=== PATIENT | female | born 1950 | race Caucasian/White ===

== ENCOUNTER 2020-01-23 08:26 | Day surgery (SDC) | payer MEDICARE, SELFPAY ==
--- NOTE | 2020-01-22 10:08 | P.CONAN_ITS ---
Documented by User: Nikki Lares 01/22/20 10:15 HPI - Anesthesia Eval Consult details Narrative: 69yo F for Colonoscopy PMFSH Past Medical History Medical History Cataract Hepatitis Herniated disc History of multiple strokes HTN (hypertension) Hyperlipemia Normal colonoscopy Surgical History Surgical History History of bunionectomy Social History Social History Smoking Status: Never smoker Use of substances other than those prescribed or required for medical reasons: No Advance Directives: No Advance Directives Information Provided: No Advance Directives on File: No Meds Allergies Allergy/AdvReac Type Severity Reaction Status Date / Time aspirin [ASA] AdvReac Intermediate GI UPSET Unverified 11/08/19 14:36 nabumetone [NABUMETONE] AdvReac Intermediate GI UPSET Unverified 11/08/19 14:36 ENVIROMENTAL Allergy Intermediate HAYFEVER Uncoded 11/08/19 14:36 Home Medications Medication Instructions Recorded Confirmed Type Lashawn 1 tab PO DAILY 01/15/20 01/15/20 History Aspir-81 1 tab PO DAILY 01/15/20 01/15/20 History Calcium 600 with Vitamin D3 1 tab PO DAILY 01/15/20 01/15/20 History Tylenol PRN 01/15/20 01/15/20 History amlodipine 7.5 mg PO DAILY 01/15/20 01/15/20 History cyclobenzaprine 1 tab PO BEDTIME PRN 01/15/20 01/15/20 History lorazepam 1 tab PO PRN 01/15/20 History multivitamin 1 tab PO DAILY 01/15/20 01/15/20 History valacyclovir PO PRN 01/15/20 History Exam Exam Date and Time: January 22, 2020 1008 Narrative Narrative: ECHO 2019 WNL MRA Head 2019: 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 reconstituting at the level of the V2 segment where the vessel proximally exhibits mod to severe irreg narrowing, <50% stenosis of the proximal right internal carotid artery Assessment and Plan Assessment Anesthesia Assessment: Chart Reviewed Documented by User: Daniel Ware 01/23/20 09:13 [facility] Past Medical History Medical History Cataract Hepatitis Herniated disc History of multiple strokes HTN (hypertension) Hyperlipemia Normal colonoscopy Surgical History Surgical History History of bunionectomy Social History Social History Smoking Status: Never smoker Use of substances other than those prescribed or required for medical reasons: No Advance Directives: No Advance Directives Information Provided: No Advance Directives on File: No Meds Allergies Allergy/AdvReac Type Severity Reaction Status Date / Time aspirin [ASA] AdvReac Intermediate GI UPSET Unverified 11/08/19 14:36 nabumetone [NABUMETONE] AdvReac Intermediate GI UPSET Unverified 11/08/19 14:36 ENVIROMENTAL Allergy Intermediate HAYFEVER Uncoded 11/08/19 14:36 Home Medications Medication Instructions Recorded Confirmed Type Lashawn 1 tab PO DAILY 01/15/20 01/15/20 History Aspir-81 1 tab PO DAILY 01/15/20 01/15/20 History Calcium 600 with Vitamin D3 1 tab PO DAILY 01/15/20 01/15/20 History Tylenol PRN 01/15/20 01/15/20 History amlodipine 7.5 mg PO DAILY 01/15/20 01/15/20 History cyclobenzaprine 1 tab PO BEDTIME PRN 01/15/20 01/15/20 History lorazepam 1 tab PO PRN 01/15/20 History multivitamin 1 tab PO DAILY 01/15/20 01/15/20 History valacyclovir PO PRN 01/15/20 History Exam Airway Mallampati Class: II TM Dist: >3cm Neck ROM: Full Loose/Missing/Broken Teeth: No Heart: [id number] Lungs: cta b/l Assessment and Plan Assessment Anesthesia Assessment: Anesthesia Plan Discussed, PAT Visit and Chart Reviewed Final Anesthetic Review NPO: Yes ASA Class: II Final Preanesthetic Review: No Changes in Pt Med Stat, Meds/Allgs Chart Reviewed, Consent Obtained/Reviewed and Anes Risks/Benef Reviewed Patient Risk: Intermediate Procedure Risk: Low Assessment/Block/Sedation in SS: Assess/Block/Sedation-SS Anesthetic Plan Anesthetic Plan: MAC: Disposition: Standard PACU
[2020-01-22 10:13] VITALS: BMI 22.6
[2020-01-23 08:54] VITALS: BP 141/75; PULSE 73; RESP 18; TEMP 36.6; O2SAT 98
[2020-01-23] MEDS: Lactated Ringers 1,000 ML 100 ML IVCONT (08:56)
[2020-01-23 10:27] VITALS: BP 105/62; PULSE 81; RESP 12; TEMP 36.1; O2SAT 100
--- NOTE | 2020-01-23 10:30 | PM.OP ---
Brief Operative Note Date of Service: 01/23/20 Pre-op diagnosis: Screening Post-op diagnosis: other (Diverticulosis, Internal hemorrhoids) Procedure: Colonoscopy to cecum and TI Surgeon: Galileo Mulligan Anesthesia: MAC Estimated blood loss (mL): 0 Pathology: none sent Condition: stable Disposition: PACU
[2020-01-23 10:42] VITALS: BP 122/65; PULSE 71; RESP 13; TEMP 36.1; O2SAT 99
--- NOTE | 2020-01-23 11:15 | OP_ITS ---
SURGEON: Galileo Mulligan MD INDICATIONS: The patient presents for evaluation of colorectal cancer screening. Full consent has been obtained from her for this, including risks of bleeding and perforation. PREOPERATIVE DIAGNOSIS: Colorectal cancer screening. POSTOPERATIVE DIAGNOSIS: PROCEDURE PERFORMED: Colonoscopy to cecum and terminal ileum. ESTIMATED BLOOD LOSS: COMPLICATIONS: ANESTHESIA: Monitored anesthesia care. ASSISTANTS: SPECIMENS: POSTOPERATIVE DIAGNOSES: Colorectal cancer screening, sigmoid diverticulosis, and internal hemorrhoids. DESCRIPTION OF PROCEDURE: The patient was placed in the left lateral decubitus position. The digital rectal exam revealed no abnormalities. The Olympus video pediatric colonoscope was entered into the rectum and advanced easily to the cecum. Once in the cecum, I did identify normal-appearing cecal pouch with appendiceal orifice and a normal-appearing ileocecal valve. The terminal ileum was cannulated and appeared normal. The scope was withdrawn back in the colon. The entire cecum and ileocecal valve appeared normal. The scope was slowly withdrawn assessing all mucosal surfaces carefully. Preparation was excellent. I did not visualize any sign of polyps, colitis, nor angiodysplasia. There was a mild amount of sigmoid diverticulosis. In the rectum, scope was retroflexed visualizing internal hemorrhoids, but no other pathology. The rectal mucosa appeared normal. The scope was straightened out and withdrawn from the patient. She tolerated the procedure well and was returned to the recovery area in stable condition. IMPRESSION: 1. Sigmoid diverticulosis. 2. Internal hemorrhoids. PLAN: Given her age and this negative exam, and no family history of colon cancer, I do not think she will need any further screening colonoscopies in the future. She will otherwise see me on a p.r.n. basis. She was advised to resume her aspirin today. MD CASTILLO Hidalgo/WILLIE / [phone]
--- NOTE | 2020-01-23 11:27 | HO.POSTANES ---
Post Anesthesia Evaluation Post Anesthesia Evaluation Vital Signs: Vital Signs Temp Pulse Resp BP Pulse Ox 01/23/20 10:42 97 F 71 13 122/65 99 01/23/20 10:27 97 F 81 12 105/62 100 01/23/20 08:54 97.9 F 73 18 141/75 H 98 Anesthesia: Monitored Mental Status: Awake Pain Control: Satisfactory Nausea/Vomiting: None Hydration: Adequate Anesthesia-Related Issues: No Anes. Related Issues
== END 2020-01-23 11:30 | disposition home or self-care (01) ==
PROVIDERS: PCP Internal Medicine; Visit Provider Internal Medicine
PROC: 0DJD8ZZ Inspection of Lower Intestinal Tract, Via Natural or Artificial Opening Endoscopic (ICD-10-PCS; CPT 45378; principal; 2020-01-23 09:30)
DX: Z12.11 Encounter for screening for malignant neoplasm of colon (principal); K57.30 Diverticulosis of large intestine without perforation or abscess without bleeding; K64.8 Other hemorrhoids; I10 Essential (primary) hypertension; E78.5 Hyperlipidemia, unspecified; K71.6 Toxic liver disease with hepatitis, not elsewhere classified; Z86.73 Personal history of transient ischemic attack (TIA), and cerebral infarction without residual deficits; Z79.82 Long term (current) use of aspirin
CPT/HCPCS: G0121

== ENCOUNTER 2020-03-30 10:01 | Emergency (ER) | payer MEDICARE, SELFPAY ==
[2020-03-30 10:04] VITALS: BP 213/93; PULSE 84; RESP 16; TEMP 36.3; O2SAT 97; BMI 22.6
[2020-03-30] MEDS: Fluorescein Sodium STRIP 1 STRIP EYE-BOTH (10:23)
[2020-03-30] MEDS: Tetracaine HCl/PF 0.5% Oph Sol 4 ML DROPS 2 DROP EYE-BOTH (10:23)
[2020-03-30 10:26] VITALS: BP 186/75; PULSE 78; RESP 18; O2SAT 96
--- NOTE | 2020-03-30 10:32 | PC.NURSE ---
PT STATES SHE HAS HYPERTENTION AND DID TAKE HER MEDS THIS MORNING BUT STATES SHE IS A LITTLE WORKED UP BECAUSE OF MY EYE PROBLEM RIGHT NOW. PT DENIES ANY HEADACHE, REFLEXES INTACT, NO FACIAL DROOP OR CHANGES IN SPEECH NOTED.
--- NOTE | 2020-03-30 11:02 | ED_ITS ---
HPI - Eye Problem General Chief complaint: Eye Problems Stated complaint: L EYE ISSUE Time Seen by Provider: 03/30/20 10:12 Source: patient Mode of arrival: ambulatory Limitations: no limitations History of Present Illness HPI Narrative: 69yoF c PMHx of left cataract status post surgery in 2016, multiple strokes, HTN, HLD, hepatitis and herniated this presenting to the ED c c/o left eye blurry vision/vision loss since 19:00 last night after placing her polymyxin stye ointment that she was using since that she was prescribed by Dr. Fu. Reports that she is also prescribed steroid both ophthalmic solution that she has been using since her cataract surgery in 2016 daily. chief complaint: vision change Onset (ago): day(s) (Since last night) Onset description: gradual Duration: constant Location: left eye Eye Symptoms: decreased vision and blurry vision Place: home Mechanism: none Severity: moderate Associated symptoms: none Treatments Prior to Arrival: none and other Related Data Home Medications Medication Instructions Recorded Confirmed Lashawn 1 tab PO DAILY 01/15/20 01/15/20 Aspir-81 1 tab PO DAILY 01/15/20 01/15/20 Calcium 600 with Vitamin D3 1 tab PO DAILY 01/15/20 01/15/20 Tylenol PRN 01/15/20 01/15/20 amlodipine 7.5 mg PO DAILY 01/15/20 01/15/20 cyclobenzaprine 1 tab PO BEDTIME PRN 01/15/20 01/15/20 lorazepam 1 tab PO PRN 01/15/20 multivitamin 1 tab PO DAILY 01/15/20 01/15/20 valacyclovir PO PRN 01/15/20 Previous Rx's Medication Instructions Recorded atropine 1 drp PO DAILY #15 ml 03/30/20 Allergies Allergy/AdvReac Type Severity Reaction Status Date / Time aspirin [ASA] AdvReac Intermediate GI UPSET Unverified 11/08/19 14:36 nabumetone [NABUMETONE] AdvReac Intermediate GI UPSET Unverified 11/08/19 14:36 ENVIROMENTAL Allergy Intermediate HAYFEVER Uncoded 11/08/19 14:36 Review of Systems Review of Systems: Constitutional : No fevers, no chills, No changes in activity, No lethargy, No recent prior head injury, No agitation, No increased fussiness ENT/Mouth : No Ear Pain, No Nasal discharge/drainage Eyes: + Vision changes/blurry/decreased vision, No Eye Pain, No Swelling, No Redness, No Foreign Body, No Photophobia, no discharge, no drainage, no itching, no eyelid edema, no contact lens uses, no recent welding, no bleeding Cardiovascular : No Chest Pain, No SOB Respiratory : No Cough Gastrointestinal : No Nausea, No Vomiting, No abdominal Pain Genitourinary : No Dysuria, No Urinary Frequency, No Urinary Incontinence, No Urgency, No Flank Pain Musculoskeletal : No joint pain, No neck stiffness, No back pain/injury Skin : No lacerations Neuro : No unsteady gait, No Paresthesias, No Loss of Consciousness, No altered mental status, No dizziness, No Headache Denies past medical history of HIV, recent trauma, coagulopathy, recent spinal/ epidural procedure, new medication, URI symptoms, close contacts with similar symptoms, tick bite, or known CO2 exposure. Yes all other systems are reviewed and are negative PMFSH Past Medical History Attestation statement: The following information was validated with the patient. Medical History Cataract Hepatitis Herniated disc History of multiple strokes HTN (hypertension) Hyperlipemia Normal colonoscopy Surgical History History of bunionectomy Social History Social History Smoking Status: Never smoker Advance Directives: No Advance Directives Information Provided: No Physical Exam Vital Signs: Vital Signs: Last Vital Signs Temp 97.4 F 03/30/20 10:04 Pulse 78 03/30/20 10:26 Resp 18 03/30/20 10:26 BP 186/75 H 03/30/20 10:26 Pulse Ox 96 03/30/20 10:26 Body Mass Index 22.6 vital signs have been reviewed as normal and appeared to be correct. Blood pressure hypertensive. Heart rate normal. Respiration rate normal. Temperature normal. Oxygen saturation normal. Appearance: Alert. Oriented X3. No acute distress. Head: Normal external exam. Normocephalic. Atraumatic. No Rueda signs noted. No raccoon eyes noted Eyes: PERRLA. EOMI. Conjunctiva are normal. Right cornea is within normal limits. Left cornea is completely black unable to perform funduscopic exam to the left eye. Funduscopic exam to the right eye within normal limits. Sclera normal. Eyelids normal. No papilledema noted. Anterior chamber normal of right eye. No photophobia noted. Pressure to right eye is 16. Pressure to left eye is 8. See nurse's notes for visual acuity. No uptake of fluorescein. No foreign bodies noted. No ulcerations or abrasions noted. No signs of orbital or periorbital cellulitis. ENT: EAC normal. TM's Normal. Pharynx normal. Uvula midline. Moist mucous membranes. Neck: Normal inspection. Neck supple. FROM. No adenopathy. Thyroid Normal. No meningeal signs. No neck mass noted. CVS: Normal heart rate and rhythm. Heart sound normal. No murmurs noted. Pulses normal throughout. Respiratory: No respiratory distress. Painless inspiration. Breath sounds normal. Back: Full range of motion noted. Skin: Skin warm and dry. Normal skin color. Normal skin turgor. No rashes/lesions/lacerations noted. Extremities: No lower extremity edema. Extremities exhibit normal range of motion. Extremities nontender. Neuro: Oriented X 3. No motor deficit. No sensory deficit. Reflexes normal. Course Course Course Narrative: 10:15am - 69yoF c PMHx of left cataract status post surgery in 2015, multiple strokes, HTN, HLD, hepatitis and herniated this presenting to the ED c c/o left eye leo rry vision/vision loss since 19:00 last night after placing her polymyxin stye ointment that she was using since that she was prescribed by Dr. Fu. - on exam patient is alert and oriented x3. Not in any acute distress. When I perform a funduscopic exam unable to visualize be on the pupil to the left eye, normal funduscopic exam to the right eye. Normal pressures. No foreign bodies or fluorescein uptake. On ultrasound it appears that patient possibly has vitreous hemorrhage versus retinal detachment versus lens dislocation - Plan: Consult with Dr. Fu the ferry captain Reevaluation(s) Reevaluation #1: - Dr. Fu at bedside at this time he performed a slit lamp and he reports most likely diagnosis is vitreous hemorrhage awaiting for patient's eyes to completely dilate for further evaluation and treatment. Will re-evaluate. Time: 13:47 Reevaluation #2: - Dr. Fu reported that is of vitreous hemorrhage with lens dislocation therefore he instructed me to tell the patient to start taking her steroid drops 4 times a day instead of once daily and started her on atropine drops 1 drop daily and to follow up with the patient outpatient on Tuesday. Patient understands agrees the plan. Time: 14:10 [facility] - Eye Problem Medical Records Attestation: I reviewed the patient's medical records. Discharge Plan Discharge Clinical Impression: Vitreous hemorrhage of left eye Anterior dislocation of lens Qualifiers: Laterality: left Qualified Code(s): H27.122 - Anterior dislocation of lens, left eye Patient Disposition: Home, Self-Care Instructions: Blurred Vision (ED) Additional Instructions: Please start taking your steroid drops 4 times a day instead of once daily. Also take the new atropine drops daily and follow up with Dr. Fu on Tuesday. Return if any new or worsening symptoms. Prescriptions: New atropine 1 % drops 1 drp PO DAILY Qty: 15 RF: 0 No Action Lashawn 1 tab PO DAILY RF: 0 Aspir-81 81 mg 1 tab PO DAILY RF: 0 Calcium 600 with Vitamin D3 200 mg 1 tab PO DAILY RF: 0 Tylenol PRN (Reason: Pain) RF: 0 amlodipine 5 mg 7.5 mg PO DAILY RF: 0 cyclobenzaprine 10 mg 1 tab PO BEDTIME PRN (Reason: Back Pain) RF: 0 lorazepam 0.5 mg 1 tab PO PRN (Reason: Anxiety) RF: 0 multivitamin 1 tab PO DAILY RF: 0 valacyclovir PO PRN (Reason: Cold Sores) RF: 0 Referrals: Mark Fu [Physician] - 2 days (Call on Tuesday for follow-up appointment) Print Language: Surinamese
--- NOTE | 2020-03-30 12:00 | PC.NURSE ---
AWAITING CONSULT WITH DR BAR.
[2020-03-30] MEDS: Tropicamide 1 % Ophth Sol 3 ML BTL 3 DROP EYE-LEFT (13:21)
== END 2020-03-30 14:24 | disposition home or self-care (01) ==
PROVIDERS: Emergency Provider Emergency Medicine; PCP Internal Medicine
DX: H43.12 Vitreous hemorrhage, left eye (principal); H27.122 Anterior dislocation of lens, left eye; I10 Essential (primary) hypertension; E78.5 Hyperlipidemia, unspecified; K75.89 Other specified inflammatory liver diseases
CPT/HCPCS: 99284

== ENCOUNTER 2020-08-11 10:05 | Day surgery (SDC) | payer MEDICARE, SELFPAY ==
[2020-08-04 14:07] VITALS: BMI 22.6
--- NOTE | 2020-08-07 08:23 | MHC.SHP ---
Pre-Procedural Eval Section A The patient is an INPATIENT: No The History & Physical has been completed within 30 days and I have reviewed it.: Yes Section B Chief Complaint: Other Mechanical Complications of IOL Allergies: Allergies Allergy/AdvReac Type Severity Reaction Status Date / Time atorvastatin [From Lipitor] Allergy Severe elevated Verified 08/04/20 13:57 liver enzymes aspirin [ASA] AdvReac Intermediate GI UPSET Verified 08/04/20 14:09 nabumetone [NABUMETONE] AdvReac Intermediate GI UPSET Verified 08/04/20 14:09 ENVIROMENTAL Allergy Intermediate HAYFEVER Uncoded 11/08/19 14:36 Plan Diagnosis/Plan: Unchanged I have reviewed the history and physical and performed a pertinent physical examination on my patient. No changes have occurred unless specified.
--- NOTE | 2020-08-08 10:17 | P.CONAN_ITS ---
Documented by User: Nikki Kenneyney 08/08/20 10:25 HPI - Anesthesia Eval Consult details Narrative: 69yo F for Left Intraocular Lens Repositioning vs IOL Exchange PCP cleared No prev lens surgery on record at [facility] (done 2012 at other facility) [facility] Active Problems Active Problems: All Active Problems (Updated 08/04/20 @ 14:06 by Jenny Milligan) Normal colonoscopy (Acute) History of bunionectomy (Acute) Hyperlipemia (Acute) HTN (hypertension) (Acute) History of multiple strokes (Acute) Herniated disc (Acute) Hepatitis (Acute) Cataract (Acute) Past Medical History Medical History (Updated 08/04/20 @ 14:06 by Jenny Milligan) Cataract COVID-19 vaccine administered Hepatitis Herniated disc History of multiple strokes HTN (hypertension) Hyperlipemia Surgical History Surgical History (Updated 08/04/20 @ 14:06 by Jenny Milligan) H/O colonoscopy History of bunionectomy Hx of left cataract extraction Hx of lumbar discectomy Social History Social History Are you a primary childcare worker to a significant other at home: No Do you presently have visiting nurse or other home services: No Patient Tobacco Use Status: Never used Tobacco Use of substances other than those prescribed or required for medical reasons: No Have you been hit, kicked, punched, or otherwise hurt by someone within the past year? If so, by whom?: No Are you DNR?: No Advance Directives: Yes () Advance Directives Information Provided: No Advance Directives Date on File: 08/11/20 Recently lost weight without trying: No Eating poorly because of decreased appetite: No Nutrition Risks: No Nutritional Risk Meds Allergies Allergy/AdvReac Type Severity Reaction Status Date / Time atorvastatin [From Lipitor] Allergy Severe elevated Verified 08/04/20 13:57 liver enzymes aspirin [ASA] AdvReac Intermediate GI UPSET Verified 08/04/20 14:09 nabumetone [NABUMETONE] AdvReac Intermediate GI UPSET Verified 08/04/20 14:09 ENVIROMENTAL Allergy Intermediate HAYFEVER Uncoded 11/08/19 14:36 Home Medications Medication Instructions Recorded Confirmed Last Taken Type amlodipine 7.5 mg PO DAILY 08/04/20 08/04/20 Unknown History aspirin [Aspirin Low Dose] 81 mg PO DAILY 08/04/20 08/04/20 Unknown History calcium carbonate-vitamin D2 1 tab PO DAILY 08/04/20 08/04/20 Unknown History [Calcium + Vitamin D] cyclobenzaprine 10 mg PO BEDTIME PRN 08/04/20 08/04/20 Unknown History ezetimibe [Zetia] 10 mg PO DAILY 08/04/20 08/04/20 Unknown History fexofenadine [Lashawn] 180 mg PO DAILY 08/04/20 08/04/20 Unknown History multivitamin 1 tab PO DAILY 08/04/20 08/04/20 Unknown History Exam Exam Date and Time: August 08, 2020 1017 Height,Weight and Vital Signs: Height 5 ft 2 in Weight 56.2 kg Assessment and Plan Assessment Anesthesia Assessment: Chart Reviewed Documented by User: Shanta Navarro 08/11/20 12:03 [facility] Past Medical History Medical History (Updated 08/04/20 @ 14:06 by Jenny Milligan) Cataract COVID-19 vaccine administered Hepatitis Herniated disc History of multiple strokes HTN (hypertension) Hyperlipemia Surgical History Surgical History (Updated 08/04/20 @ 14:06 by Jenny Milligan) H/O colonoscopy History of bunionectomy Hx of left cataract extraction Hx of lumbar discectomy Social History Social History Are you a primary childcare worker to a significant other at home: No Do you presently have visiting nurse or other home services: No Patient Tobacco Use Status: Never used Tobacco Use of substances other than those prescribed or required for medical reasons: No Have you been hit, kicked, punched, or otherwise hurt by someone within the past year? If so, by whom?: No Are you DNR?: No Advance Directives: Yes () Advance Directives Information Provided: No Advance Directives Date on File: 08/11/20 Recently lost weight without trying: No Eating poorly because of decreased appetite: No Nutrition Risks: No Nutritional Risk Meds Allergies Allergy/AdvReac Type Severity Reaction Status Date / Time atorvastatin [From Lipitor] Allergy Severe elevated Verified 08/04/20 13:57 liver enzymes aspirin [ASA] AdvReac Intermediate GI UPSET Verified 08/04/20 14:09 nabumetone [NABUMETONE] AdvReac Intermediate GI UPSET Verified 08/04/20 14:09 ENVIROMENTAL Allergy Intermediate HAYFEVER Uncoded 11/08/19 14:36 Home Medications Medication Instructions Recorded Confirmed Last Taken Type amlodipine 7.5 mg PO DAILY 08/04/20 08/04/20 Unknown History aspirin [Aspirin Low Dose] 81 mg PO DAILY 08/04/20 08/04/20 Unknown History calcium carbonate-vitamin D2 1 tab PO DAILY 08/04/20 08/04/20 Unknown History [Calcium + Vitamin D] cyclobenzaprine 10 mg PO BEDTIME PRN 08/04/20 08/04/20 Unknown History ezetimibe [Zetia] 10 mg PO DAILY 08/04/20 08/04/20 Unknown History fexofenadine [Lashawn] 180 mg PO DAILY 08/04/20 08/04/20 Unknown History multivitamin 1 tab PO DAILY 08/04/20 08/04/20 Unknown History Exam Airway Mallampati Class: II (Caps laterally) TM Dist: >3cm Neck ROM: Full Heart: rrr Lungs: cta Assessment and Plan Assessment Anesthesia Assessment: Anesthesia Plan Discussed and Chart Reviewed Final Anesthetic Review NPO: Yes ASA Class: II Final Preanesthetic Review: No Changes in Pt Med Stat and Consent Obtaine d/Reviewed Patient Risk: Intermediate Procedure Risk: Intermediate Anesthetic Plan Anesthetic Plan: MAC: Disposition: Standard PACU
[2020-08-11 12:00] VITALS: BP 171/75; PULSE 71; RESP 18; TEMP 36.3; O2SAT 98
[2020-08-11] MEDS: Tetracaine HCl/PF 0.5% Oph Sol 4 ML DROPS 1 DROP EYE-LEFT (12:08)
[2020-08-11] MEDS: Tropicamide 1 % Ophth Sol 3 ML BTL 1 DROP EYE-LEFT ×3 (12:09→12:15)
[2020-08-11] MEDS: Phenylephrine HCL 2.5% Oph SoL 2 ML BOTTLE 1 DROP EYE-LEFT ×3 (12:11→12:17)
[2020-08-11] MEDS: Lactated Ringers 500 ML 50 ML IV (12:11)
[2020-08-11 15:32] VITALS: BP 159/67; PULSE 67; RESP 18; TEMP 36.1; O2SAT 97
--- NOTE | 2020-08-12 08:38 | OP_ITS ---
SURGEON: Mark Fu MD PREOPERATIVE DIAGNOSIS: POSTOPERATIVE DIAGNOSIS: PROCEDURE PERFORMED: ESTIMATED BLOOD LOSS: COMPLICATIONS: Loss of PCIOL into the posterior chamber. ANESTHESIA: MAC. 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 DESCRIPTION OF PROCEDURE: After obtaining informed consent, the patient was brought into the operating room suite where the left eye was prepped and draped in usual sterile fashion. Attention was directed to the left eye where a lid speculum was placed in the operating room, microscope positioned over the left eye. A Kenalog injection was given subcutaneously followed by creation of paracentesis with a super sharp blade. A Keratome 2.2 mm was then utilized to create a clear corneal wound. Viscoelastic was then instilled into the anterior chamber. Viscoelastic was also instilled posterior to the IOL. The IOL was rotated into the anterior chamber, where it was folded intraocularly and extracted from the eye. A new lens was placed in the sulcus upon removal of the viscoelastic with the automated irrigation and aspiration unit. The lens suddenly dislocated into the posterior chamber. Vigamox was then instilled into the anterior chamber. The patient tolerated the procedure. The patient was notified of the complication and will be seen in followup in the a.m. MD JUAN JOSE Weiner/MODL / [id number]
== END 2020-08-11 15:35 | disposition home or self-care (01) ==
PROVIDERS: PCP Internal Medicine; Visit Provider Ophthalmology
PROC: (CPT 66825; principal; 2020-08-11 13:50)
DX: T85.22XA Displacement of intraocular lens, initial encounter (principal); H20.22 Lens-induced iridocyclitis, left eye; Y77.2 Prosthetic and other implants, materials and accessory ophthalmic devices associated with adverse incidents; Y92.234 Operating room of hospital as the place of occurrence of the external cause; I10 Essential (primary) hypertension; K75.9 Inflammatory liver disease, unspecified; Z86.73 Personal history of transient ischemic attack (TIA), and cerebral infarction without residual deficits; Z79.82 Long term (current) use of aspirin; Z79.899 Other long term (current) drug therapy; Z88.8 Allergy status to other drugs, medicaments and biological substances
CPT/HCPCS: 66986; J2250; J3010; J3300; V2632

== ENCOUNTER 2021-10-16 14:40 | Outpatient (REF) | payer MEDICARE, SELFPAY ==
[2021-10-16 16:14] LABS: Alanine Aminotransferase 15 U/L (0-31); Albumin Level 4.6 g/dL (3.5-5.0); Alkaline Phosphatase 85 U/L (39-117); Aspartate Amino Transferase 19 U/L (5-31); Bilirubin Direct 0.3 mg/dL (0.0-0.5); Bilirubin Total 1.1 mg/dL (0.0-1.0); Total Protein 6.5 g/dL (6.5-8.0)
== END 2021-10-16 14:41 | disposition home or self-care (01) ==
LOC: HO.LAB 14:40
PROVIDERS: PCP Internal Medicine; Visit Provider Internal Medicine
DX: R19.7 Diarrhea, unspecified (principal)
CPT/HCPCS: 36415; 80076

== ENCOUNTER 2021-10-29 12:20 | Outpatient (REF) | payer MEDICARE, SELFPAY ==
[2021-10-31 14:37] LABS: Immunoglobulin A 63 mg/dL (70-320)
[2021-11-03 12:52] LABS: Gliadin Deamidated IgA Ab <1.0 U/mL; Gliadin Deamidated IgG Ab <1.0 U/mL; Transglutaminase Ab IgG <1.0 U/mL; Transglutaminase IgA <1.0 U/mL
[2021-11-05 16:02] LABS: Endomysial IgA Antibody Negative (Negative)
== END 2021-10-29 12:21 | disposition home or self-care (01) ==
LOC: HO.10HDL 12:20
PROVIDERS: Visit Provider Internal Medicine
DX: R19.7 Diarrhea, unspecified (principal); R19.4 Change in bowel habit
CPT/HCPCS: 36415; 82784; 86231; 86258; 86364

== ENCOUNTER 2022-11-29 22:42 | Emergency (ER) | payer MEDICARE, SELFPAY ==
[2022-11-29 23:15] VITALS: BP 164/77; PULSE 75; RESP 18; TEMP 37.1; O2SAT 98; BMI 23.2
[2022-11-30 00:17] LABS: Alanine Aminotransferase 19 U/L (0-31); Albumin Level 4.9 g/dL (3.5-5.0); Alkaline Phosphatase 80 U/L (39-117); Anion Gap 14 (12-20); Aspartate Amino Transferase 21 U/L (5-31); Bilirubin Total 1.1 mg/dL (0.0-1.0); Blood Urea Nitrogen 19 mg/dL (9-16); Calcium 10.2 mg/dL (8.4-10.2); Carbon Dioxide 27 mmol/L (22-29); Chloride 105 mmol/L (96-108); Creatinine Clr Calc Pharmacy 53.2; Estimated Glomerular Filt Rate > 60; Glucose Random 105 mg/dL (60-115); Potassium 3.9 mmol/L (3.3-5.1); Sodium 142 mmol/L (135-145); Total Protein 7.2 g/dL (6.5-8.0)
[2022-11-30 01:02] VITALS: BP 135/70; PULSE 74; RESP 18; TEMP 36.4; O2SAT 96
--- NOTE | 2022-11-30 01:49 | ED.FEMALEGU ---
HPI - Female Genitourinary General Chief complaint: Urogenital-Female Stated complaint: UTI Time Seen by Provider: 11/30/22 01:29 Source: patient and family ( spouse) Mode of arrival: ambulatory Limitations: no limitations History of Present Illness HPI Narrative: a 71-year-old female came in for evaluation of pressure with urination and frequent urination patient is prone to UTI. No fever, no chills, no nausea, no vomiting, no back pain or flank pain. Patient has an appointment with Urology for further ultrasound and cystoscopy this week. Related Data Home Medications Medication Instructions Recorded Confirmed amlodipine 2.5 mg tablet 7.5 mg PO DAILY 08/04/20 08/04/20 aspirin 81 mg tablet,delayed 81 mg PO DAILY 08/04/20 08/04/20 release (Finn Low Dose Aspirin) calcium carb-ergocalciferol (vit 1 tab PO DAILY 08/04/20 08/04/20 D2) 600 mg calcium-200 unit tablet cyclobenzaprine 10 mg tablet 10 mg PO BEDTIME PRN Muscle Spasm 08/04/20 08/04/20 ezetimibe 10 mg tablet (Zetia) 10 mg PO DAILY 08/04/20 08/04/20 fexofenadine 180 mg tablet 180 mg PO DAILY 08/04/20 08/04/20 multivitamin 1 tab PO DAILY 08/04/20 08/04/20 Previous Rx's Medication Instructions Recorded atropine 1 % eye drops 1 drp PO DAILY Vitreous hemorrhage 03/30/20 #15 mL nitrofurantoin 100 mg PO Q12H 7 days #14 caps 11/30/22 monohydrate/macrocrystals 100 mg capsule (Macrobid) Allergies Allergy/AdvReac Type Severity Reaction Status Date / Time atorvastatin [From Lipitor] Allergy Severe elevated Verified 11/29/22 23:15 liver enzymes Yhyifjk-PJX-HzO Reductase Allergy Severe Stomach Verified 11/29/22 23:15 Inhibitor Upset aspirin [ASA] AdvReac Intermediate GI UPSET Verified 11/29/22 23:15 nabumetone [NABUMETONE] AdvReac Intermediate GI UPSET Verified 11/29/22 23:15 ENVIROMENTAL Allergy Intermediate HAYFEVER Uncoded 11/08/19 14:36 Review of Systems Review of Systems: all other systems are reviewed and are negative Constitutional: Reports as per HPI and Reports no additional constitutional complaints Eyes: Reports as per HPI and Reports no additional eye complaints Reports system reviewed and no additional complaints, except as documented Cardiovascular: Reports as per HPI and Reports no additional cardiovascular complaints Respiratory: Reports as per HPI and Reports no additional respiratory complaints Gastrointestinal: Reports as per HPI and Reports no additional gastrointestinal complaints Genitourinary: Reports no additional female genitourinary complaints Musculoskeletal: Reports no additional musculoskeletal complaints Skin/Breast: Reports system reviewed and no additional complaints, except as docu Psychiatric: Reports no additional psychiatric complaints Endocrine: Reports no additional endocrine complaints Hematologic/Lymphatic: Reports no additional hematologic/lymphatic complaints Allergic/Immunologic: Reports no additional allergic/immunologic complaints Reports system reviewed and no additional complaints, except as documented and Reports Abnormal speech present PENDING SALE TO [facility] Past Medical History Medical History COVID-19 vaccine administered Cataract Herniated disc HTN (hypertension) Hepatitis Hyperlipemia History of multiple strokes Surgical History H/O colonoscopy Hx of left cataract extraction Hx of lumbar discectomy History of bunionectomy Social History Social History Are you a primary nurse wound care to a significant other at home: No Do you presently have visiting nurse or other home services: No Patient Tobacco Use Status: Never used Tobacco Smoked in Last 30 Days: No Use of substances other than those prescribed or required for medical reasons: No Advance Directives: Yes Advance Directives on File: Yes Advance Directives Date on File: 08/11/20 Physical Exam Vital Signs: Vital Signs: Last Vital Signs Temp 97.5 F 11/30/22 01:02 Pulse 74 11/30/22 01:02 Resp 18 11/30/22 01:02 BP 135/70 11/30/22 01:02 Pulse Ox 96 11/30/22 01:02 O2 Del Method Room Air 11/30/22 01:02 BMI result Body Mass Index 23.2 Vital signs have been reviewed and appear to be correct. Blood pressure elevated. Heart rate normal. Respiratory rate normal. Temperature normal. Oxygen saturation normal. Appearance: Alert. Oriented X3. No acute distress. Head: Normal external exam. Normocephalic. Atraumatic. No Rueda signs noted. No raccoon eyes noted Eyes: PERRLA. EOMI. Conjunctiva and sclera normal. Eyelids normal. ENT: TM's Normal. Pharynx normal. Uvula midline. Moist mucous membranes. No trismus noted. No drooling noted. No muffled voice noted. Neck: Normal inspection. Neck supple. FROM. No adenopathy. Thyroid Normal. No meningeal signs. No neck mass noted. CVS: Normal heart rate and rhythm. Heart sound normal. No murmurs noted. Pulses normal throughout. Respiratory: No respiratory distress. Painless inspiration. Breath sounds normal. No wheezes/rales/rhonchi noted. Chest nontender. No accessory muscle usage noted or decreased air movement noted. Abdomen: Soft and nontender. Bowel sounds normal in all 4 quadrants. No distention noted. No organomegaly noted. No visible injury noted. Back: No CVA tenderness. Full range of motion noted. Skin: Skin warm and dry. Normal skin color. Normal skin turgor. No rashes/lesions/lacerations noted. Extremities: No lower extremity edema. Extremities exhibit normal range of motion. Extremities nontender. Neuro: Oriented X 3. Cranial nerve exam: II-XII are grossly intact No motor deficit. No sensory deficit. Reflexes normal. Course Course Course Narrative: non complicated UTI. Start patient on Macrobid and drink plenty of fluids and keep the appointment with her urologist this week. Medical Decision Making Differential Diagnosis Differential Diagnoses: The differential diagnosis associated with the presentation includes ( UTI, pyelonephritis, electrolyte abnormality, severe anemia , sepsis.) Admission/Observation Consideration of admission/observation: Escalation of care including admission/observation considered Lab Data MDM Lab Attestation statement: I reviewed the patient's lab results. 11/29/22 23:57 11/29/22 23:57 Labs: Lab Results 11/29/22 11/29/22 Range/Units 23:25 23:57 WBC 14.6 H (4.8-10.8) X10*3/uL RBC 5.27 (4.20-5.50) X10*6/uL Hgb 15.7 (12.0-16.0) g/dl Hct 46.6 (37.0-47.0) % MCV 88.4 (80.0-98.0) fL MCH 29.8 (27.0-33.0) pg MCHC 33.7 (31.0-35.0) g/dl RDW 13.8 (11.0-16.0) % Plt Count 333 (160-400) X10*3/uL MPV 10.0 (9.4-12.3) fL Immature Gran % (Auto) 0.3 (0.0-0.4) % Neut % (Auto) 81.7 H (45-73) % Lymph % (Auto) 8.6 L (20-40) % Polk % (Auto) 5.7 (2-11) % Eos % (Auto) 3.1 (0-4) % Baso % (Auto) 0.6 (0-2) % Lymph # (Auto) 1.3 (1.2-4.9) X10*3/uL Polk # (Auto) 0.8 (0.1-1.2) X10*3/uL Eos # (Auto) 0.5 H (0.0-0.4) X10*3/uL Baso # (Auto) 0.1 (0.0-0.2) X10*3/uL Abs Immat Gran (auto) 0.04 H (0.00-0.03) X10*3/uL Absolute Neuts (auto) 11.9 H (2.0-8.3) x10*3/uL Absolute Nucleated RBC 0.000 (0.0-0.012) X10*3/uL Nucleated RBC % (auto) 0.0 (0.0-0.2) /100WBC Sodium 142 (135-145) mmol/L Potassium 3.9 (3.3-5.1) mmol/L Chloride 105 (96-108) mmol/L Carbon Dioxide 27 (22-29) mmol/L Anion Gap 14 (12-20) BUN 19 H (9-16) mg/dL Creatinine 0.71 (0.5-1.4) mg/dL Estim Creat Clear Calc 53.2 Estimated GFR > 60 Random Glucose 105 (60-115) mg/dL Calcium 10.2 (8.4-10.2) mg/dL Total Bilirubin 1.1 H (0.0-1.0) mg/dL AST 21 (5-31) U/L ALT 19 (0-31) U/L Alkaline Phosphatase 80 (39-117) U/L Total Protein 7.2 (6.5-8.0) g/dL Albumin 4.9 (3.5-5.0) g/dL Urine Color Yellow Urine Appearance Clear Urine pH 8.0 (5.0-9.0) Ur Specific Casey <= 1.005 (1.005-1.025) Urine Protein Negative (Neg-Trace) mg/dL Urine Glucose (UA) Negative (Negative) mg/dL Urine Ketones Negative (Negative) mg/dL Urine Blood Moderate (2+) H (Negative) Urine Nitrite Negative (Negative) Ur Leukocyte Esterase Large (3+) H (Negative) Urine RBC >20 H (0-2) /HPF Urine WBC >50 H (0-5) /HPF Ur Squamous Epith Cells 0-2 (0-2) /HPF Urine Bacteria None Seen (None Seen) Hyaline Casts 0-2 (0-2) /LPF Discharge Plan Discharge Clinical Impression: Acute UTI Patient Disposition: Home, Self-Care Instructions: Urinary Tract Infection in Women (ED) Prescriptions: New nitrofurantoin monohyd/m-cryst [Macrobid] 100 mg capsule 100 mg PO Q12H 7 Days Qty: 14 0RF Rx Instructions: must administer with a meal/food No Action atropine 1 % drops 1 drp PO DAILY Qty: 15 0RF Rx Instructions: administer to back of throat/tongue and swallow multivitamin Tablet 1 tab PO DAILY cyclobenzaprine 10 mg Tablet 10 mg PO BEDTIME PRN (Reason: Muscle Spasm) amlodipine 2.5 mg tablet 7.5 mg PO DAILY fexofenadine [Lashawn] 180 mg Tablet 180 mg PO DAILY aspirin [Finn Low Dose Aspirin] 81 mg Tablet,Delayed Release (Dr/Ec) 81 mg PO DAILY Calcium + Vitamin D 600 mg calcium- 200 unit Tablet 1 tab PO DAILY ezetimibe [Zetia] 10 mg Tablet 10 mg PO DAILY Referrals: Bebo Garcia MD [Primary Care Provider] -
[2022-11-30 02:04] VITALS: BP 157/84; PULSE 73; RESP 18; O2SAT 94
== END 2022-11-30 02:13 | disposition home or self-care (01) ==
PROVIDERS: Emergency Provider Emergency Medicine; PCP Internal Medicine
DX: N39.0 Urinary tract infection, site not specified (principal); R35.0 Frequency of micturition; Z79.899 Other long term (current) drug therapy
CPT/HCPCS: 36415; 80053; 81001; 85025; 87086; 99283; 99284

== ENCOUNTER 2023-08-01 09:54 | Day surgery (SDC) | payer MEDICARE, SELFPAY ==
[2023-07-27 09:27] VITALS: BMI 23.7
--- NOTE | 2023-07-28 14:21 | P.CONAN_ITS ---
Documented by User: Nikki Lares NP 07/28/23 14:21 HPI - Anesthesia Eval Consult details Narrative: 72yo F for Right Cataract Extraction IOL Insertion No previous cataract on record. (Had lens repositioning 2020) [facility] Active Problems Active Problems: All Active Problems Normal colonoscopy (Acute) History of bunionectomy (Acute) Hyperlipemia (Acute) HTN (hypertension) (Acute) History of multiple strokes (Acute) Herniated disc (Acute) Hepatitis (Acute) Cataract (Acute) Past Medical History Medical History Depression Cervical spondylosis Cerebral vascular disease Benign meningioma Cataract Herniated disc HTN (hypertension) Hepatitis Hyperlipemia History of multiple strokes Surgical History Surgical History Hx of arthroscopy of right knee Hx of craniotomy H/O colonoscopy Hx of left cataract extraction Hx of lumbar discectomy History of bunionectomy Social History Social History Are you a primary patient care to a significant other at home: No Do you presently have visiting nurse or other home services: No Patient Tobacco Use Status: Former Tobacco user Use of substances other than those prescribed or required for medical reasons: No Advance Directives: No Advance Directives Information Provided: Yes Advance Directives on File: Yes Advance Directives Date on File: 08/11/20 Meds Allergies Allergy/AdvReac Type Severity Reaction Status Date / Time atorvastatin [From Lipitor] Allergy Severe elevated Verified 08/01/23 11:24 liver enzymes Ylrasyp-IOC-PyE Reductase Allergy Severe Stomach Verified 08/01/23 11:24 Inhibitor Upset aspirin [ASA] AdvReac Intermediate GI UPSET Verified 08/01/23 11:24 nabumetone [NABUMETONE] AdvReac Intermediate GI UPSET Verified 08/01/23 11:24 ENVIROMENTAL Allergy Intermediate HAYFEVER Uncoded 08/01/23 11:24 Home Medications ?Medication ?Instructions ?Recorded ?Confirmed ?Last Taken ?Type amlodipine 2.5 mg tablet 5 mg PO DAILY 08/04/20 07/27/23 07/25/23 History aspirin 81 mg tablet,delayed 81 mg PO DAILY 08/04/20 07/27/23 Unknown History release (Finn Low Dose Aspirin) calcium carb-ergocalciferol (vit 1 tab PO DAILY 08/04/20 07/27/23 Unknown History D2) 600 mg calcium-200 unit tablet ezetimibe 10 mg tablet (Zetia) 10 mg PO DAILY 08/04/20 07/27/23 Unknown History fexofenadine 180 mg tablet 180 mg PO DAILY 08/04/20 07/27/23 Unknown History multivitamin 1 tab PO DAILY 08/04/20 07/27/23 Unknown History gabapentin 300 mg capsule 300 mg PO BEDTIME 07/27/23 07/27/23 Unknown History Exam Height,Weight and Vital Signs: Height 5 ft 1.42 in Weight 57.6 kg Assessment and Plan Assessment Anesthesia Assessment: Chart Reviewed Documented by User: Nalini oHrvath MD 08/01/23 11:54 [facility] Past Medical History Medical History Depression Cervical spondylosis Cerebral vascular disease Benign meningioma Cataract Herniated disc HTN (hypertension) Hepatitis Hyperlipemia History of multiple strokes Family History Family history of problems with anesthesia: No Surgical History Surgical History Hx of arthroscopy of right knee Hx of craniotomy H/O colonoscopy Hx of left cataract extraction Hx of lumbar discectomy History of bunionectomy History of Problems with Anesthesia: No Social History Social History Are you a primary patient care to a significant other at home: No Do you presently have visiting nurse or other home services: No Patient Tobacco Use Status: Former Tobacco user Use of substances other than those prescribed or required for medical reasons: No Advance Directives: No Advance Directives Information Provided: Yes Advance Directives on File: Yes Advance Directives Date on File: 08/11/20 Meds Allergies Allergy/AdvReac Type Severity Reaction Status Date / Time atorvastatin [From Lipitor] Allergy Severe elevated Verified 06/10/24 11:24 liver enzymes Xtyekom-QLA-UzG Reductase Allergy Severe Stomach Verified 08/01/23 11:24 Inhibitor Upset aspirin [ASA] AdvReac Intermediate GI UPSET Verified 08/01/23 11:24 nabumetone [NABUMETONE] AdvReac Intermediate GI UPSET Verified 08/01/23 11:24 ENVIROMENTAL Allergy Intermediate HAYFEVER Uncoded 08/01/23 11:24 Home Medications ?Medication ?Instructions ?Recorded ?Confirmed ?Last Taken ?Type amlodipine 2.5 mg tablet 5 mg PO DAILY 08/04/20 07/27/23 07/25/23 History aspirin 81 mg tablet,delayed 81 mg PO DAILY 08/04/20 07/27/23 Unknown History release (Finn Low Dose Aspirin) calcium carb-ergocalciferol (vit 1 tab PO DAILY 08/04/20 07/27/23 Unknown History D2) 600 mg calcium-200 unit tablet ezetimibe 10 mg tablet (Zetia) 10 mg PO DAILY 08/04/20 07/27/23 Unknown History fexofenadine 180 mg tablet 180 mg PO DAILY 08/04/20 07/27/23 Unknown History multivitamin 1 tab PO DAILY 08/04/20 07/27/23 Unknown History gabapentin 300 mg capsule 300 mg PO BEDTIME 07/27/23 07/27/23 Unknown History Exam Airway Mallampati Class: II TM Dist: >3cm Neck ROM: Full Assessment and Plan Assessment Anesthesia Assessment: Anesthesia Plan Discussed Final Anesthetic Review Family History of Problems with Anesthesia: No History of Problems with Anesthesia: No NPO: Yes ASA Class: III Final Preanesthetic Review: No Changes in Pt Med Stat, Meds/Allgs Chart Reviewed, Consent Obtained/Reviewed and Anes Risks/Benef Reviewed Patient Risk: Intermediate Procedure Risk: Low Anesthetic Plan Anesthetic Plan: MAC: Disposition: Standard PACU
--- OUTSIDE RECORDS SUMMARY | 2023-08-01 09:56 | XMS_ITS | Continuity of Care Document ---
Author Organization [facility] Address [address] [place] [address]- Care Team Providers Care Landscape Supervisor Name Role Phone Bebo Garcia MD Primary Care Physician Encounter [facility] Date(s): 07/17/20 - 07/24/20 [facility] Adult [address] [place] [address]- Attending Physician: Bebo Garcia MD Referring Physician: Mark Fu MD Allergies, Adverse Reactions, Alerts Substance Reaction Severity Status Lipitor Active NSAIDs GI UPSET Active Immunizations Given and Recorded Vaccine Date Status Refusal Reason SARS-CoV-2 (COVID-19) mRNA-1273 vaccine 05/18/20 R ecorded SARS-CoV-2 (COVID-19) mRNA-1273 vaccine 04/12/20 R ecorded Influenza Virus Vaccine (oldterm) 10/22/19 Recorde d Influenza Virus Vaccine (oldterm) 11/21/18 Recorde d Influenza Virus Vaccine (oldterm) 1 01/14/09 Given zoster vaccine, inactivated 01/21/19 Recorded zoster vaccine, inactivated 10/22/18 Recorded tetanus/diphtheria/pertussis, acel(Tdap) 03/10/18 Given tetanus/diphtheria/pertussis, acel(Tdap) 03/10/18 Given influenza virus vaccine, inactivated 11/07/17 Give n influenza virus vaccine, inactivated 2 11/02/16 Re corded influenza virus vaccine, inactivated 3 01/31/16 Re corded influenza virus vaccine, inactivated 12/26/14 Nima rded influenza virus vaccine, inactivated 4 10/29/13 Re corded Hepatitis A Adult Vaccine 03/09/16 Given pneumococcal 13-valent vaccine 03/28/15 Given pneumococcal 23-valent vaccine 02/04/14 Given Zostavax (oldterm) 06/15/11 Given Tet/Diphth/Acel, Pertussis (oldterm) 11/28/07 Give n tetanus-diphtheria toxoids (Td) 05/22/97 Given 1Admin Note: per pt historical data rcvd here 2Result Comment: [11/05/2016] [facility] 3Result Comment: [facility]09[facility] Medic[facility] Lashawn By Mouth, 0 Refills, Maintenance, 07/06/16 14:19:02 Start Date: 07/06/16 Status: Ordered amLODIPine 2.5 mg oral tablet 7.5 mg, 3, tablet, By Mouth, Daily, # 90 tablet, Refills 5, Tot. Refills 5, Maintenance, 02/25/20 9:21:00 EST, Route to Pharmacy Electronically, [facility], 157.2, cm, 01/11/20 12:55:00 EST,Height Start Date: 02/25/20 Stop Date: 08/23/20 Status: Ordered aspirin 81 mg oral tablet 1 tablet = 81 mg, By Mouth, Daily, 0 Refills, Maintenance, 07/07/18 8:59:22 EDT Start Date: 07/07/18 Status: Ordered Calcium 600+D oral tablet 1 tablet, By Mouth, Daily, 0 Refills, Maintenance, 10/23/15 14:52:57 Start Date: 10/23/15 Status: Ordered cyclobenzaprine 10 mg oral tablet 10 mg, 1, tablet, By Mouth, Daily at bedtime, PRN, # 30 tablet, Refills 11, Tot. Refills 11, Maintenance, for spasm, 10/19/19 12:44:00 EDT, Route to Pharmacy Electronically, [facility] # [facility], 157.2, cm, 04/20/19 9:37:00 EST, Height Start Date: 10/19/19 Status: Ordered Multivitamin By Mouth, Daily, 0 Refills, Maintenance, 10/23/15 14:53:04 Start Date: 10/23/15 Status: Ordered valacyclovir 1 gm oral tablet 1 tablet = 1 Gm, By Mouth, 0 Refills, Maintenance, 08/15/18 13:32:00 EDT Start Date: 08/15/18 Status: Ordered Zetia 10 mg oral tablet 1 tablet = 10 mg, By Mouth, Daily, # 30 tablet, 11 Refills, Maintenance, 04/24/20 11:35:00 EST, Tablet, [facility], Partial fill upon patient request if the prescription is for a schedule IIopioid drug., 157.2, cm, 04/24/20 11:22:00 EST, Height Start Date: 04/24/20 Status: Ordered Problem List Condition Effective Dates Status Health Status Inform ant Recurrent epistaxis(Confirmed) Active Burping(Confirmed) Active Cerebellar infarct(Confirmed) Active 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 2colo 2009 nl, repeat 2019 3bone density 07/2010 osteopenia but no osteoporosis, pt. to d/c fosamax and recheck bone density 07/2012 Vital Signs Most recent to oldest [Reference Range]: 1 Height 157.2 cm (07/17/20 10:32 AM) Weight 56.2 kg (07/17/20 10:32 AM) Oxygen Saturation [94-100 %] 98 % (07/17/20 10:32 AM) Pulse Rate [55-90 bpm] 77 bpm (07/17/20 10:32 AM) Body Mass Index [18.5-24.99] 22.74 (07/17/20 10:32 AM) Blood Pressure [90-138/55-84 mm Hg] 134/ 84mm Hg (07/17/20 10:32 AM) Mode of Delivery (Oxygen) Room air (07/17/20 10:32 AM) Blood pressure sites Arm, left (07/17/20 10:32 AM) Weight Obtained Via Standing scale (07/17/20 10:32 AM) Social History Social History Type Response Smoking Status Former smoker entered on: 02/04/14 Sex Female
--- OUTSIDE RECORDS SUMMARY | 2023-08-01 09:56 | XMS_ITS | Continuity of Care Document ---
Author Organization [facility] Address [address] [place] [address]- Care Team Providers Care Marketing Manager Health Communications Name Role Phone Radha ACEVES, Sunshine Reed Primary Care Physician Encounter 07/09/20 - 07/16/20 [facility] [address], [address] [place] [address]- Attending Physician: Sunshine Cruz MD Admitting Physician: Sunshine Cruz MD Referring Physician: Sunshine Cruz MD Allergies, Adverse Reactions, Alerts Substance Reaction [...] 02/25/20 9:21:00 EST, Route to Pharmacy Electronically, [facility], 157.2, cm, 01/11/20 12:55:00 [...] 10/19/19 12:44:00 EDT, Route to Pharmacy Electronically, [facility] # [facility], 157.2, cm, 04/20/19 9:37:00 [...] d/c fosamax and recheck bone density 07/2012 Results Radiology Reports * Exam Date Time Procedure Performing Provider Status 07/09/20 2:36 PM Dexa Bone Density (Axial) Tequila Garza sa; Auth (Verified) Notes: (Dexa Bone Density (Axial)) Reason For Exam: bone density RESULT: DEXA BONE DENSITY (AXIAL) Bone Density Report Name: KASSIE MANCIA Age: 69 Sex: Female Ethnicity: White Date of : 1950 Indication: POSTMENOPAUSAL. Referring Provider: SUNSHINE CRUZ Study: Bone densitometry was performed. Exam Date: July 09, 2020 Accession number: [id number] Bone Density: Region BMD T-score Z-score Classification AP Spine (L1-L4) 0.811 -2.1 0.1 Osteopenia Femoral Neck (Left) 0.573 -2.5 -0.6 Osteoporosis Total Hip (Left) 0.698 -2.0 -0.4 Osteopenia World Health Organization criteria for BMD impression classify patients as: Normal (T-score at or above -1.0), Osteopenia (T-score between -1.0 and -2.5), or Osteoporosis (T-score at or below -2.5). 10-year Fracture Risk: FRAX not reported because: Some T-score at or below -2.5 Previous Exams: Region Exam Age BMD T-score BMD Change BMD Change Date g/cm2 vs Baseline vs Previous AP Spine(L1-L4) 07/09/2020 69 0.811 -2.1 -2.9%* -3.4%* 04/26/2018 67 0.840 -1.9 0.6% -1.0% 03/11/2016 65 0.848 -1.8 1.5% 0.6% 08/10/2012 61 0.843 -1.9 0.9% 0.9% 07/23/2010 59 0.835 -1.9 Total Hip(Left) 07/09/2020 69 0.698 -2.0 -5.0%* -7.9%* 04/26/2018 67 0.758 -1.5 3.2% -7.8%* 03/11/2016 65 0.822 -1.0 11.9%* 6.3%* 08/10/2012 61 0.774 -1.4 5.3%* 5.3%* 07/23/2010 59 0.735 -1.7 Femoral Neck(Left) 07/09/2020 69 0.573 -2.5 -3.1% -3.8% 04/26/2018 67 0.596 -2.3 0.7% -2.7% 03/11/2016 65 0.613 -2.1 3.6% -3.1% 08/10/2012 61 0.632 -2.0 6.9%* 6.9%* 07/23/2010 59 0.591 -2.3 *Denotes significance at 95% confidence level, LSC for AP Spine = 0.022 g/cm2, LSC for Total Hip = 0.027 g/cm2 Clinical Information Provided by Patient: Has used the following medications: Actonel (i.e. risedronate), Fosamax (i.e. alendronate), Calcium Patient maximum height was 62.0 Menopause Age: 43 Onset of menses at age 11 Number of children 2 Impression: The patient has osteoporosis as determined by WHO criteria. Reported by: Arturo Gao M.D. on 07/11/2020 4:20:00 PM. Dictated By: Arturo Gao MD Dictated Date/Time: 07/11/20 4:21 pm Reviewed By: Arturo Gao MD Signed By: Arturo Gao MD Signed Date/Time: 07/11/20 4:21 pm Transcribed By: ALLISON Transcribed Date/Time: 07/11/20 4:21 pm Social History Social History Type Response Smoking Status Former smoker entered on: 02/04/14 Sex Female
--- OUTSIDE RECORDS SUMMARY | 2023-08-01 09:57 | XMS_ITS | Continuity of Care Document ---
Author Organization [facility] Chris Baird Karson lt Address [address] [place] [address]- Care Team Providers Care Manager Performance Improvement Name Role Phone Bebo Garcia MD Primary Care Physician Encounter [facility] [place] Date(s): 10/26/19 - 11/02/19 [facility] Chris Baird Adult [address] [place] [address]- [place] Encounter Diagnosis Cerebellar infarct(Discharge Diagnosis) - 10/26/19 HTN (hypertension)(Discharge Diagnosis) - 10/26/19 Hypercholesterolemia(Discharge Diagnosis) - 10/26/19 Lumbar radiculopathy, right(Discharge Diagnosis) - 10/26/19 Attending Physician: Bebo Garcia MD Allergies, Adverse Reactions, Alerts Substance Reaction Severity Status Lipitor Active NSAIDs GI UPSET Active Immunizations Given and Recorded Vaccine Date Status Refusal Reason Influenza Virus Vaccine (oldterm) 10/22/19 Recorde d [...] tablet, Refills 5, Tot. Refills 5, Maintenance, 08/22/19 12:56:00 EDT, Route to Pharmacy Electronically, [facility] # [facility], 157.2, cm, 04/20/19 9:37:00 EST,Height Start Date: 08/22/19 Stop Date: 02/18/20 Status: Ordered aspirin 81 mg oral tablet [...] 10/19/19 12:44:00 EDT, Route to Pharmacy Electronically, [facility] # [facility], 157.2, cm, 04/20/19 9:37:00 EST, Height Start Date: 10/19/19 Status: Ordered Multivitamin By Mouth, Daily, 0 Refills, Maintenance, 10/23/15 14:53:04 Start Date: 10/23/15 Status: Ordered valacyclovir 1 gm oral tablet 1 tablet = 1 Gm, By Mouth, 0 Refills, Maintenance, 08/15/18 13:32:00 EDT Start Date: 08/15/18 Status: Ordered Problem List Condition Effective Dates Status Health Status Inform ant Recurrent epistaxis(Confirmed) Active Cerebellar infarct(Confirmed) Active 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 to d/c fosamax and recheck bone density 07/2012 Diagnosis Diagnosis Type Effective Dates Health Status Clinical Service Informant Cerebellar infarct Discharge Diagnosis 10/26/19 HTN (hypertension) Discharge Diagnosis 10/26/19 Hypercholesterolemia Discharge Diagnosis 10/26/19 Lumbar radiculopathy, right Discharge Diagnosis 10/26/19 Vital Signs Most recent to oldest [Reference Range]: 1 2 Height 157.2 cm (10/26/19 10:47 AM) 157.2 cm (10/26/19 10:28 AM) Weight 55.8 kg (10/26/19 10:28 AM) Oxygen Saturation [94-100 %] 97 % (10/26/19 10:28 AM) Pulse Rate [55-90 bpm] 65 bpm (10/26/19 10:28 AM) Body Mass Index [18.5-24.99] 22.58 (10/26/19 10:28 AM) Blood Pressure [90-138/55-84 mm Hg] 138/ 70mm Hg (10/26/19 10:47 AM) 140/86mm Hg *H* (10/26/19 10:28 AM) Mode of Delivery (Oxygen) Room air (10/26/19 10:28 AM) Blood pressure sites Arm, left (10/26/19 10:28 AM) Weight Obtained Via Standing scale (10/26/19 10:28 AM) Social History Social History Type Response Smoking Status Former smoker entered on: 02/04/14 Sex Female
--- OUTSIDE RECORDS SUMMARY | 2023-08-01 09:57 | XMS_ITS | Continuity of Care Document ---
Author Organization [facility] Oli Karson lt Address [address] [place] [address]- Care Team Providers Care Investment Banking Analyst Name Role Phone Radha ACEVES, Bebo Reed Primary Care Physician [facility] Date(s): 11/23/21 - 12/23/21 [facility] Oli Adult [address] [place] [address]- Allergies, Adverse Reactions, Alerts Substance Reaction Severity Status Lipitor Active chlorhexidine containing compounds Active NSAIDs GI UPSET Active Immunizations Given and Recorded Vaccine Date Status Refusal Reason SARS-CoV-2 (COVID-19) mRNA-1273 vaccine 01/05/21 R ecorded SARS-CoV-2 (COVID-19) mRNA-1273 vaccine 05/18/20 G iven SARS-CoV-2 (COVID-19) mRNA-1273 vaccine 05/18/20 R ecorded SARS-CoV-2 (COVID-19) mRNA-1273 vaccine 04/20/20 G iven SARS-CoV-2 (COVID-19) mRNA-1273 vaccine 04/20/20 R ecorded SARS-CoV-2 (COVID-19) mRNA-1273 vaccine 04/12/20 R ecorded influenza virus vaccine, inactivated 11/18/20 Nima rded influenza virus vaccine, inactivated 11/28/18 Nima rded influenza virus vaccine, inactivated 11/14/17 Nima rded influenza virus vaccine, inactivated 11/07/17 Give n influenza virus vaccine, inactivated 1 11/02/16 Re corded influenza virus vaccine, inactivated 2 01/31/16 Re corded influenza virus vaccine, inactivated 11/10/15 Nima rded influenza virus vaccine, inactivated 12/26/14 Nima rded influenza virus vaccine, inactivated 3 10/29/13 Re corded Influenza Virus Vaccine (oldterm) 10/22/19 Recorde d Influenza Virus Vaccine (oldterm) 11/21/18 Recorde d Influenza Virus Vaccine (oldterm) 4 01/14/09 Given zoster vaccine, inactivated 02/08/19 Recorded zoster vaccine, inactivated 01/21/19 Recorded zoster vaccine, inactivated 11/10/18 Recorded zoster vaccine, inactivated 10/22/18 Recorded tetanus/diphtheria/pertussis, acel(Tdap) 03/10/18 Given tetanus/diphtheria/pertussis, acel(Tdap) 03/10/18 Given Hepatitis A Adult Vaccine 03/09/16 Given pneumococcal 13-valent vaccine 03/28/15 Given pneumococcal 23-valent vaccine 02/04/14 Given Zostavax (oldterm) 06/15/11 Given Tet/Diphth/Acel, Pertussis (oldterm) 11/28/07 Give n tetanus-diphtheria toxoids (Td) 05/22/97 Given 1Result Comment: [11/05/2016] [facility] 2Result Comment: [03/09/2016] [facility] 3[facility] 4Admin Note: per pt historical data rcvd here Medications amLODIPine 5 mg oral tablet 5 mg, 1, tablet, By Mouth, Daily, # 90 tablet, Refills 3, Tot. Refills 3, Maintenance, 10/30/21 11:26:00 EDT, Route to Pharmacy Electronically, [facility], Partial fill upon patient request if the prescription is for a schedule... Start Date: 10/30/21 Status: Ordered aspirin 81 mg oral tablet 1 tablet = 81 mg, By Mouth, Daily, 0 Refills, Maintenance, 07/07/18 8:59:22 EDT Start Date: 07/07/18 Status: Ordered Calcium 600+D oral tablet 1 tablet, By Mouth, Daily, 0 Refills, Maintenance, 10/23/15 14:52:57 Start Date: 10/23/15 Status: Ordered ezetimibe 10 mg oral tablet 1 tablet, By Mouth, Daily, # 90 tablet, 1 Refills, Maintenance, 11/08/21 19:06:00 EDT, [facility], 156, cm, 10/30/21 10:59:00 EDT, Height, 54.8, kg, 10/15/21 13:40:00 EDT, Dry Weight Start Date: 11/08/21 Status: Ordered Multivitamin 1 tablet, By Mouth, Daily, 0 Refills, Maintenance, 10/23/15 14:53:04 EDT Start Date: 10/23/15 Status: Ordered Problem List Condition Confirmation Course Effective Dates Status Health Status Informant Benign meningioma Confirmed Active Recurrent epistaxis Confirmed Active Burping Confirmed Active Cerebellar infarct Confirmed Active 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 Confirmed Active Cerebrovascular disease Confirmed Active Cervical spondylosis Confirmed Active Colonoscopy 1, 2 Confirmed Active History of bunionectomy of left great toe Confirmed Active Hypercholesterolemia Confirmed Active HTN (hypertension) Confirmed Active Hypogammaglobulinemia Confirmed Active Abnormal liver function tests Confirmed Active Lumbar radiculopathy, right Confirmed Active Osteoarthritis Confirmed Active Osteopenia 3 Confirmed Active Rhinitis Confirmed Active Vitiligo Confirmed Active 1Colonoscopy 2019 -. 2colo 2009 nl, repeat 2019 3bone density 07/2010 osteopenia but no osteoporosis, pt. to d/c fosamax and recheck bone density 07/2012 Social History Social History Type Response Smoking Status Former smoker entered on: 01/17/13 Sex Patient Care team information Personnel Name: Radha ACEVES, Bebo Reed Address: Address: [address] [place] [id number]
--- OUTSIDE RECORDS SUMMARY | 2023-08-01 09:57 | XMS_ITS | Continuity of Care Document ---
Author Organization [facility] Address [address] [place] [address] christa, [address] [place] [address]- Care Team Providers Care Mortgage Consultant Name Role Phone Bebo Garcia MD Primary Care Physician Encounter [facility] Date(s): 07/30/21 - 08/06/[address], [address] [place], [place] [address] Attending Physician: Nancy Tong DO Referring Physician: Bebo Garcia MD Allergies, Adverse Reactions, [...] toxoids (Td) 05/22/97 Given 1Result Comment: [11/05/2016] [facility] 2Result Comment: [03/09/2016] [facility] 3Location History: [facility] 4Admin Note: per pt historical data rcvd here Medications Lashawn By Mouth, 0 Refills, Maintenance, 07/06/16 14:19:02 Start Date: 07/06/16 Status: Ordered amLODIPine 2.5 mg oral tablet See Instructions, TAKE THREE TABLETS BY MOUTH EVERY DAY, # 90 tablet, 11 Refills, Maintenance, 11/10/20 11:12:00 EDT, [facility], 157.2, cm, 10/29/20 10:40:00 EDT, Height, 56.2, kg, 08/19/20 8:08:00 EDT, Dry Weight Start Date: 11/10/20 Status: Ordered aspirin 81 mg oral tablet [...] 10/19/19 12:44:00 EDT, Route to Pharmacy Electronically, [facility], 157.2, cm, 04/20/19 9:37:00 EST, Height Start Date: 10/19/19 Status: Ordered Multivitamin By Mouth, Daily, 0 Refills, Maintenance, 10/23/15 14:53:04 Start Date: 10/23/15 Status: Ordered turmeric 500 mg oral capsule 1 capsule = 500 mg, By Mouth, Daily, # 60 capsule, 0 Refills, Maintenance, 05/06/21 14:31:00 EDT, Capsule, Partial fill upon patient request if the prescription is for a schedule II opioid drug. Start Date: 05/06/21 Status: Ordered valacyclovir 1 gm oral tablet 1 tablet = 1 Gm, By Mouth, 0 Refills, Maintenance, 08/15/18 13:32:00 EDT Start Date: 08/15/18 Status: Ordered Zetia 10 mg oral tablet 1 tablet = 10 mg, By Mouth, Daily, # 90 tablet, 3 Refills, Maintenance, 12/12/20 16:02:00 EDT, Tablet, [facility], Partial fill upon patient request if the prescription is for a schedule II opioid drug., 157.2, cm, 12/12/20 15:4... Start Date: 12/12/20 Status: Ordered Problem List Condition Effective Dates [...] 1Colonoscopy 2019 -. 2colo 2009 nl, repeat 2020 3bone density 07/2010 osteopenia but no osteoporosis, pt. to d/c fosamax and recheck bone density 07/2012 Vital Signs Most recent to oldest [Reference Range]: 1 Height 157.2 cm (07/30/21 9:22 AM) Weight 56.6 kg (07/30/21 9:22 AM) Body Mass Index [18.5-24.99] 22.9 (07/30/21 9:22 AM) Social History Social History Type Response Smoking Status Former smoker entered on: 01/17/13 Sex Female
--- OUTSIDE RECORDS SUMMARY | 2023-08-01 09:57 | XMS_ITS | Continuity of Care Document ---
Author Organization [facility] Oli Karson lt Address [address] [place] [address]- Care Team Providers Care Tag Maker Name Role Phone Radha ACEVES, Bebo Reed Primary Care Physician [facility]counter [facility] Date(s): 12/12/20 - 12/19/20 [facility] Oli Adult [address] [place] [address]- Encounter Diagnosis HTN (hypertension)(Discharge Diagnosis) - 12/12/20 Attending Physician: Justina FRANCOIS, Olga Wtason Allergies, Adverse Reactions, Alerts Substance Reaction Severity Status Lipitor Active NSAIDs GI UPSET Active Immunizations Given and Recorded Vaccine Date Status Refusal Reason influenza virus vaccine, inactivated 11/18/20 Nima rded influenza virus vaccine, inactivated 11/07/17 Give n influenza virus vaccine, inactivated 1 11/02/16 Re corded influenza virus vaccine, inactivated 2 01/31/16 Re corded influenza virus vaccine, inactivated 12/26/14 Nima rded influenza virus vaccine, inactivated 3 10/29/13 Re corded SARS-CoV-2 (COVID-19) mRNA-1273 vaccine 05/18/20 R ecorded SARS-CoV-2 (COVID-19) mRNA-1273 vaccine 04/20/20 R ecorded [...] toxoids (Td) 05/22/97 Given 1Result Comment: [11/05/2016] [facility] 2Result Comment: [03/09/2016] [facility] 3Location History: [facility] 4Admin Note: per pt historical data rcvd here Medications Lashawn By Mouth, 0 Refills, Maintenance, 07/06/16 14:19:02 Start Date: 07/06/16 Status: Ordered amLODIPine 2.5 mg oral tablet See Instructions, TAKE THREE TABLETS BY MOUTH EVERY DAY, # 90 tablet, 11 Refills, Maintenance, 11/10/20 11:12:00 EDT, [facility], 157.2, cm, 10/29/20 10:40:00 EDT, Height, [...] 10/19/19 12:44:00 EDT, Route to Pharmacy Electronically, [facility], 157.2, cm, 04/20/19 9:37:00 [...] 3 Refills, Maintenance, 12/12/20 16:02:00 EDT, Tablet, [facility], Partial fill upon patient request if [...] Diagnosis Diagnosis Type Effective Dates Health Status Cl inical Service Informant HTN (hypertension) Discharge Diagnosis 12/12/20 Vital Signs Most recent to oldest [Reference Range]: 1 2 Height 157.2 cm (12/12/20 3:49 PM) 157.2 cm (12/12/20 3:42 PM) Weight 57.7 kg (12/12/20 3:42 PM) Oxygen Saturation [94-100 %] 98 % (12/12/20 3:42 PM) Pulse Rate [55-90 bpm] 78 bpm (12/12/20 3:42 PM) Body Mass Index [18.5-24.99] 23.35 (12/12/20 3:42 PM) Blood Pressure [90-138/55-84 mm Hg] 155/ 75mm Hg *H* (12/12/20 3:49 PM) 164/82mm Hg *H* (12/12/20 3:42 PM) Respiratory Rate [16-30 br/min] 12 br/mi n *L* (12/12/20 3:42 PM) Mode of Delivery (Oxygen) Room air (12/12/20 3:42 PM) Blood pressure sites Arm, left (12/12/20 3:49 PM) Arm, left (12/12/20 3:42 PM) Weight Obtained Via Standing scale (12/12/20 3:42 PM) Social History Social History Type Response Smoking Status Former smoker entered on: 02/04/14 Sex Female
--- OUTSIDE RECORDS SUMMARY | 2023-08-01 09:57 | XMS_ITS | Continuity of Care Document ---
Author Organization [facility] Oli Karson lt Address [address] [place] [address]- Care Team Providers Care Deputy Director Of Public Works Name Role Phone Bebo Garcia MD Primary Care Physician [facility] Date(s): 12/15/20 - 01/14/21 [facility] Oli Adult [address] [place] [address]- Allergies, Adverse Reactions, Alerts Substance Reaction Severity [...] toxoids (Td) 05/22/97 Given 1Result Comment: [11/05/2016] [facility] 2Result Comment: [03/09/2016] [facility] 3Location History: [facility] 4Admin Note: per pt historical data rcvd here Medications Lashawn By Mouth, 0 Refills, Maintenance, 07/06/16 14:19:02 Start Date: 07/06/16 Status: Ordered amLODIPine 2.5 mg oral tablet See Instructions, TAKE THREE TABLETS BY MOUTH EVERY DAY, # 90 tablet, 11 Refills, Maintenance, 11/10/20 11:12:00 EDT, [facility], 157.2, cm, 10/29/20 10:40:00 EDT, Height, [...] 10/19/19 12:44:00 EDT, Route to Pharmacy Electronically, [facility], 157.2, cm, 04/20/19 9:37:00 [...]
--- OUTSIDE RECORDS SUMMARY | 2023-08-01 09:57 | XMS_ITS | Continuity of Care Document ---
Author Organization [facility] Oli Karson lt Address [address] [place] [address]- Care Team Providers Care Retail Representative Name Role Phone Bebo Garcia MD Primary Care Physician [phone] [facility]counter [facility] Date(s): 10/09/21 - 11/08/21 [facility] Oli Adult [address] [place] [address]- Allergies, Adverse Reactions, Alerts Substance Reaction Severity [...] toxoids (Td) 05/22/97 Given 1Result Comment: [11/05/2016] [facility] 2Result Comment: [03/09/2016] [facility] 3Location History: [facility] 4Admin Note: per pt historical data rcvd here Medications amLODIPine 5 mg oral tablet 5 mg, 1, tablet, By Mouth, Daily, # 90 tablet, Refills 3, Tot. Refills 3, Maintenance, 10/30/21 11:26:00 EDT, Route to Pharmacy Electronically, [facility], Partial fill upon patient request [...] tablet, 1 Refills, Maintenance, 11/08/21 19:06:00 EDT, [facility], 156, cm, 10/30/21 10:59:00 EDT, Height, 54.8, kg, 10/15/21 13:40:00 EDT, Dry Weight Start Date: 11/08/21 Status: Ordered Multivitamin 1 tablet, By Mouth, Daily, 0 Refills, Maintenance, 10/23/15 14:53:04 EDT Start Date: 10/23/15 Status: Ordered Problem List Condition Effective Dates Status Health Status Inform ant Benign meningioma(Confirmed) Active Recurrent epistaxis(Confirmed) Active Burping(Confirmed) Active Cerebellar infarct(Confirmed) Active 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 2colo 2009 nl, repeat 2019 3bone density 07/2010 osteopenia but no osteoporosis, pt. to d/c fosamax and recheck bone density 07/2012 Social History Social History Type Response Smoking Status Former smoker entered on: 01/17/13 Sex Care Team Personnel Name: Bebo Garcia MD Address: [address] [place] [address] [place] [address]-
--- OUTSIDE RECORDS SUMMARY | 2023-08-01 09:57 | XMS_ITS | Continuity of Care Document ---
Author Organization [facility] Address [address] [place] [address]- Care Team Providers Care It Security Consultant Name Role Phone Bebo Garcia MD Primary Care Physician [phone] [facility]): 08/06/21 - 09/05/21 [facility] [address] [place] [id number] Allergies, Adverse Reactions, Alerts Substance Reaction Severity [...] 10/29/13 Re corded Influenza Virus Vaccine (oldterm) 8/31/20 Recorde d Influenza Virus Vaccine (oldterm) 11/21/18 [...] toxoids (Td) 05/22/97 Given 1Result Comment: [11/05/2016] [facility] 2Result Comment: [03/09/2016] [facility] 4Admin Note: per pt historical data rcvd here Medications Lashawn By Mouth, 0 Refills, Maintenance, 07/06/16 14:19:02 Start Date: 07/06/16 Status: Ordered amLODIPine 2.5 mg oral tablet See Instructions, TAKE THREE TABLETS BY MOUTH EVERY DAY, # 90 tablet, 11 Refills, Maintenance, 11/10/20 11:12:00 EDT, [facility], 157.2, cm, 10/29/20 10:40:00 EDT, [...] 11, Tot. Refills 11, Maintenance, for spasm, 08/19/21 13:18:00 EDT, Do Not Route Start Date: 08/19/21 Status: Ordered Multivitamin By Mouth, Daily, 0 Refills, Maintenance, 10/23/15 14:53:04 Start Date: 10/23/15 Status: Ordered valacyclovir 1 gm oral tablet 1 tablet = 1 Gm, By Mouth, 0 Refills, Maintenance, 08/15/18 13:32:00 EDT Start Date: 08/15/18 Status: Ordered Zetia 10 mg oral tablet 1 tablet = 10 mg, By Mouth, Daily, # 90 tablet, 3 Refills, Maintenance, 12/12/20 16:02:00 EDT, Tablet, [facility], Partial fill upon patient request if [...]
--- OUTSIDE RECORDS SUMMARY | 2023-08-01 09:57 | XMS_ITS | Continuity of Care Document ---
Author Organization [facility] Oli Karson lt Address [address] [place] [address]- Care Team Providers Care Case Management Manager Name Role Phone Bebo Garcia MD Primary Care Physician [facility] Date(s): 01/07/21 - 02/06/21 [facility] Oli Adult [address] [place] [address]- Allergies, Adverse Reactions, Alerts Substance Reaction Severity [...] toxoids (Td) 05/22/97 Given 1Result Comment: [11/05/2016] [facility] 2Result Comment: [03/09/2016] [facility] 3Location History: [facility] 4Admin Note: per pt historical data rcvd here Medications Lashawn By Mouth, 0 Refills, Maintenance, 07/06/16 14:19:02 Start Date: 07/06/16 Status: Ordered amLODIPine 2.5 mg oral tablet See Instructions, TAKE THREE TABLETS BY MOUTH EVERY DAY, # 90 tablet, 11 Refills, Maintenance, 11/10/20 11:12:00 EDT, [facility], 157.2, cm, 10/29/20 10:40:00 EDT, [...] 10/19/19 12:44:00 EDT, Route to Pharmacy Electronically, [facility], 157.2, cm, 04/20/19 [...] 3 Refills, Maintenance, 12/12/20 16:02:00 EDT, Tablet, [facility], Partial fill upon patient request [...]
--- OUTSIDE RECORDS SUMMARY | 2023-08-01 09:57 | XMS_ITS | Continuity of Care Document ---
Author Organization [facility] Oli Karson lt Address [address] [place] [address]- Care Team Providers Care Printed Circuit Board Panels Developer Name Role Phone Bebo Garcia MD Primary Care Physician [facility] Date(s): 04/20/19 - 04/27/19 [facility] [place] Adult [address] [place] [address]- [facility] Attending Physician: Bebo Garcia MD Allergies, Adverse Reactions, Alerts Substance Reaction Severity Status Lipitor Active NSAIDs GI UPSET Active Immunizations Given and Recorded Vaccine Date Status Refusal Reason Influenza Virus Vaccine (oldterm) 11/21/18 Recorde d Influenza Virus Vaccine (oldterm) 1 01/14/09 Given zoster vaccine, inactivated 10/22/18 Recorded tetanus/diphtheria/pertussis, acel(Tdap) [...] By Mouth, Daily, # 90 tablet, Refills 11, Tot. Refills 11, Maintenance, 08/08/1911:20:04 EDT, Route to Pharmacy Electronically, [id number], [facility] Start Date: 08/07/18 Stop Date: 08/02/19 Status: Ordered aspirin 81 mg oral tablet 1 tablet = 81 mg, By Mouth, Daily, 0 Refills, Maintenance, 07/07/18 8:59:22 EDT Start Date: 07/07/18 Status: Ordered Calcium 600+D oral tablet 1 tablet, By Mouth, Daily, 0 Refills, Maintenance, 10/23/15 14:52:57 Start Date: 10/23/15 Status: Ordered Multivitamin By Mouth, Daily, 0 [...] oldest [Reference Range]: 1 Height 157.2 cm (04/20/19 9:37 AM) Weight 56.2 kg (04/20/19 9:37 AM) Oxygen Saturation [94-100 %] 98 % (04/20/19 9:37 AM) Pulse Rate [55-90 bpm] 88 bpm (04/20/19 9:37 AM) Body Mass Index [18.5-24.99] 22.74 (04/20/19 9:37 AM) Blood Pressure [90-138/55-84 mm Hg] 144/ 80mm Hg *H* (04/20/19 9:37 AM) Respiratory Rate [16-30 br/min] 12 br/mi n *L* (04/20/19 9:37 AM) Mode of Delivery (Oxygen) Room air (04/20/19 9:37 AM) Blood pressure sites Arm, left (04/20/19 9:37 AM) Weight Obtained Via Standing scale (04/20/19 9:37 AM) Social History Social History Type Response Smoking Status Former smoker entered on: 02/04/14 Sex Female
--- OUTSIDE RECORDS SUMMARY | 2023-08-01 09:57 | XMS_ITS | Continuity of Care Document ---
Author Organization [facility] Address [address] [place], [place] [address]miki goodwin, [address] [place] [address]- Care Team Providers Care Sdv Pilot/Navigator/Dds Operator Name Role Phone Radha ACEVES, Bebo Reed Primary Care Physician [phone] [facility] Date[facility]s): 07[facility]21 - 08/14/[address], [address] [place], [place] [address] Allergies, Adverse Reactions, Alerts Substance Reaction [...] toxoids (Td) 05/22/97 Given 1Result Comment: [11/05/2016] [facility] [place] [facility] 2Result Comment: [03/09/2016] [facility] 3Location History: [facility] 4Admin Note: per pt historical data rcvd here Medications Lashawn By Mouth, 0 Refills, Maintenance, 07/06/16 14:19:02 Start Date: 07/06/16 Status: Ordered amLODIPine 2.5 mg oral tablet See Instructions, TAKE THREE TABLETS BY MOUTH EVERY DAY, # 90 tablet, 11 Refills, Maintenance, 11/10/20 11:12:00 EDT, [facility], 157.2, cm, 10/29/20 10:40:00 [...] 10/19/19 12:44:00 EDT, Route to Pharmacy Electronically, [facility], 157.2, cm, 04/20/19 [...] 3 Refills, Maintenance, 12/12/20 16:02:00 EDT, Tablet, [facility], Partial fill upon patient [...]
--- OUTSIDE RECORDS SUMMARY | 2023-08-01 09:57 | XMS_ITS | Continuity of Care Document ---
Author Organization [facility] Oli Karson lt Address [address] [place] [address]- Care Team Providers Care Pizza Hut Assistant Name Role Phone Bebo Garcia MD Primary Care Physician [facility] Date[facility]s): 11/10/20 - 12/10/20 [facility] Adult [address] [place] [address]- Allergies, Adverse Reactions, Alerts Substance Reaction Severity [...] (oldterm) 1 01/14/09 Given zoster vaccine, inactivated 02/08/19 Recorded [...] historical data rcvd here 2Result Comment: [11/05/2016] [facility] [place] [facility] 3Result Comment: [03/09/2016] [facility] Medications Lashawn By Mouth, 0 Refills, Maintenance, 07/06/16 14:19:02 Start Date: 07/06/16 Status: Ordered amLODIPine 2.5 mg oral tablet See Instructions, TAKE THREE TABLETS BY MOUTH EVERY DAY, # 90 tablet, 11 Refills, Maintenance, 11/10/20 11:12:00 EDT, [facility], 157.2, cm, 10/29/20 10:40:00 [...] 10/19/19 12:44:00 EDT, Route to Pharmacy Electronically, [facility] # [facility], 157.2, cm, 04/20/19 [...] Daily, # 90 tablet, 3 Refills, Maintenance, 10/29/20 10:46:00 EDT, Tablet, [facility], Partial fill upon patient request if the prescription is for a schedule II opioid drug., 157.2, cm, 10/29/20 10:4... Start Date: 10/29/20 Status: Ordered Problem List Condition Effective Dates [...]
--- OUTSIDE RECORDS SUMMARY | 2023-08-01 09:57 | XMS_ITS | Continuity of Care Document ---
Author Organization [facility] Address [address] [place] [address]- Care Team Providers Care Imitation Marble Mechanic Name Role Phone Bebo Garcia MD Primary Care Physician [phone] Encounter [facility] Date(s): 04/10/23 - 04/17/23 [facility] [address] [place] [address]- Encounter Diagnosis URI with cough and congestion(Discharge Diagnosis) - 04/10/23 Otitis externa of left ear(Discharge Diagnosis) - 04/10/23 Attending Physician: Erica Agee NP Referring Physician: Bebo Garcia MD Allergies, Adverse Reactions, Alerts Substance Reaction Severity Status Lipitor Active chlorhexidine containing compounds Active NSAIDs GI UPSET Active Immunizations Given and Recorded Vaccine Date Status Refusal Reason pneumococcal 20-valent conjugate vaccine 11/02/22 Given [id number] bivalent booster vax 12/16/21 Recorded influenza virus vaccine, inactivated 12/14/21 Nima rded influenza virus vaccine, inactivated 11/18/20 Nima rded [...] 10/29/13 Re corded SARS-CoV-2 (COVID-19) mRNA-1273 vaccine 01/05/21 R ecorded [...] toxoids (Td) 05/22/97 Given 1Result Comment: [11/05/2016] [facility] [place] [facility] 2Result Comment: [03/09/2016] [facility] 3Location History: [facility] 4Admin Note: per pt historical data rcvd here Medications amLODIPine 5 mg oral tablet 5 mg, 1, tablet, By Mouth, Daily, # 90 tablet, Refills 3, Tot. Refills 3, Maintenance, 08/27/22 7:39:00 EDT, Route to Pharmacy Electronically, [facility], Partial fill upon patient request if the prescription is for a schedule I... Start Date: 08/27/22 Status: Ordered aspirin 81 mg oral tablet 1 tablet = 81 mg, By Mouth, Daily, 0 Refills, Maintenance, 07/07/18 8:59:22 EDT Start Date: 07/07/18 Status: Ordered betamethasone-clotrimazole 0.05%-1% topical cream 1 application, Topically, 2 times a day, # 15 Gm, 0 Refills, Maintenance, 11/02/22 12:13:00 EDT, Cream, [facility]/pharmacy #[id number], Partial fill upon patient request if the prescription is for a schedule II opioid drug., 1 application Topically 2 times a day,... Start Date: 11/02/22 Status: Ordered Calcium 600+D oral tablet 1 tablet, By Mouth, Daily, 0 Refills, Maintenance, 10/23/15 14:52:57 Start Date: 10/23/15 Status: Ordered ezetimibe 10 mg oral tablet 1 tablet, By Mouth, Daily, # 90 tablet, 3 Refills, Maintenance, 08/27/22 7:39:00 EDT, [facility], 156, cm, 08/04/22 9:08:00 EDT, Height, 54.8, kg, 10/15/21 13:40:00 EDT, Dry Weight Start Date: 08/27/22 Status: Ordered Flonase Allergy Relief 50 mcg/inh nasal spray 1 sprays = 50 mcg, Nares, Both, Daily, shake well before using, # 9.9 mL, 0 Refills, Maintenance, 04/10/23 12:10:00 EST, [place], [facility]/pharmacy #[id number], Partial fill upon patient request if the prescription is for a schedule II opioid drug., 156, cm, 04/10... Start Date: 04/10/23 Status: Ordered Gabapentin By Mouth, 0 Refills, Maintenance, 04/10/23 10:51:00 EST, Partial fill upon patient request if the prescription is for a schedule II opioid drug. Start Date: 04/10/23 Status: Ordered Multivitamin 1 tablet, By Mouth, [...] Confirmed Active Colonoscopy 1, 2 Confirmed Active Depression, unspecified Confirmed Active Hematuria, gross Confirmed Active History of bunionectomy of left great toe Confirmed Active Hypercholesterolemia Confirmed Active HTN (hypertension) Confirmed Active Hypogammaglobulinemia Confirmed Active Abnormal liver function tests Confirmed Active Lumbar radiculopathy, right Confirmed Active Osteoarthritis Confirmed Active Osteoporosis 3, 4 Confirmed Active Rhinitis Confirmed Active Vitiligo Confirmed Active 1Colonoscopy 2019 -. 2colo 2009 nl, repeat 2019 3Osteoporosis on 1 view bone density 2022. 4bone density 07/2010 osteopenia but no osteoporosis, pt. to d/c fosamax and recheck bone density 07/2012 Diagnosis Diagnosis Type Effective Dates Health Status Clinical Service Informant URI with cough and congestion Discharge Diagnosis 04/10/23 Otitis externa of left ear Discharge Diagnosis 04/10/23 Vital Signs Most recent to oldest [Reference Range]: 1 Height 156 cm (04/10/23 10:51 AM) Oxygen Saturation [94-100 %] 98 % (04/10/23 10:51 AM) Pulse Rate [55-90 bpm] 78 bpm (04/10/23 10:51 AM) Blood Pressure [90-138/55-84 mm Hg] 130/ 74mm Hg (04/10/23 10:51 AM) Respiratory Rate [16-30 br/min] 20 br/mi n (04/10/23 10:51 AM) Temperature [96.8-100.4 DegF] 97.4 DegF (04/10/23 10:51 AM) Mode of Delivery (Oxygen) Room air (04/10/23 10:51 AM) Blood pressure sites Arm, left (04/10/23 10:51 AM) Temperature Route Temporal (04/10/23 10:51 AM) Social History Social History Type Response Smoking Status Former smoker entered on: 01/17/13 Sex Patient Care team information Care Team Personnel Name: Bebo Garcia MD Position: [facility] Physician - Primary Care Member Role: PCP Address: Address: [address] [place] [id number]- Name: Kelsy Cyr RN Position: S RN Member Role: Primary Care Nurse Name: Beena Mack [place] Position: [facility] Onco RN Member Role: Primary Care Nurse Care Team Related Persons Name: RACHEL MANCIA Address: home [address] [place] [address]
--- OUTSIDE RECORDS SUMMARY | 2023-08-01 09:57 | XMS_ITS | Continuity of Care Document ---
Author Organization [facility] Oli Karson lt Address [address] [place] [address]- Care Team Providers Care Creel Clerk Name Role Phone Radha ACEVES, Bebo Reed Primary Care Physician [phone] [facility]s): 07/23/22 - 08/22/22 [facility] Adult [address] [place] [address]- Allergies, Adverse Reactions, Alerts Substance Reaction Severity Status Lipitor Active chlorhexidine containing compounds Active NSAIDs GI UPSET Active Immunizations Given and Recorded Vaccine Date Status Refusal Reason [id number] bivalent booster vax 12/16/21 Recorded influenza virus [...] toxoids (Td) 05/22/97 Given 1Result Comment: [11/05/2016] [facility] [place] [facility] 2Result Comment: [03/09/2016] [facility] 3Location History: [facility] 4Admin Note: per pt historical data rcvd here Medications amLODIPine 5 mg oral tablet 5 mg, 1, tablet, By Mouth, Daily, # 90 tablet, Refills 3, Tot. Refills 3, Maintenance, 05/05/22 12:05:00 EDT, [facility] to [facility], Partial fill upon patient request if the prescription is for a schedule... Start Date: 05/05/22 Status: Ordered aspirin 81 mg oral tablet 1 tablet = 81 mg, By Mouth, Daily, 0 Refills, Maintenance, 07/07/18 8:59:22 EDT Start Date: 07/07/18 Status: Ordered Calcium 600+D oral tablet 1 tablet, By Mouth, Daily, 0 Refills, Maintenance, 10/23/15 14:52:57 Start Date: 10/23/15 Status: Ordered ezetimibe 10 mg oral tablet 1 tablet, By Mouth, Daily, # 90 tablet, 3 Refills, Maintenance, 05/05/22 12:05:00 [facility], [facility], cm, 05/05/22 11:57:00 EDT, Height, 54.8, kg, 10/15/21 13:40:00 EDT, Dry Weight Start Date: 05/05/22 Status: Ordered Multivitamin 1 tablet, By Mouth, [...] 2 Confirmed Active Depression, unspecified Confirmed Active History of bunionectomy of left [...] Care team information Care Team Personnel Name: Radha ACEVES, Bebo Reed Position: [facility] Physician - Primary Care Member Role: PCP Address: Address: [address] [place] [address]- Name: Kelsy Cyr RN Position: S RN Member Role: Primary Care Nurse Name: Beena Mack [place] Position: [facility] Onco RN Member Role: Primary Care Nurse Care Team Related Persons Name: RACHEL MANCIA Address: home [address] [place] [address]
--- OUTSIDE RECORDS SUMMARY | 2023-08-01 09:57 | XMS_ITS | Continuity of Care Document ---
Author Organization [facility] Chris Baird Karson lt Address [address] [place] [address]- Care Team Providers Care Assistant Service Manager Name Role Phone Bebo Garcia MD Primary Care Physician [phone] [facility]s): 06/05/20 - 07/05/20 [facility] Adult [address] [place] [address]- Allergies, Adverse Reactions, Alerts Substance Reaction Severity [...] pneumococcal 23-valent vaccine 02/04/14 Given Zostavax (oldterm) 4/24/12 Given Tet/Diphth/Acel, Pertussis (oldterm) 11/28/07 Give n [...] 02/25/20 9:21:00 EST, Route to Pharmacy Electronically, [facility] # [facility], 157.2, cm, [...] 10/19/19 12:44:00 EDT, Route to Pharmacy Electronically, [facility] # [facility], 157.2, cm, [...]
--- OUTSIDE RECORDS SUMMARY | 2023-08-01 09:57 | XMS_ITS | Continuity of Care Document ---
Author Organization [facility] Karson lt Address [address] [place] [address]- Care Team Providers Care Forest And Conservation Worker Name Role Phone Radha ACEVES, Bebo Reed Primary Care Physician [facility] Date[facility]s): 08/08/20 - 09/07/20 [facility] Adult [address] [place] [address]- Allergies, Adverse Reactions, Alerts Substance Reaction Severity [...] [facility] [place] [facility] 3Result Comment: [03/09/2016] [facility] 4Location History: [facility] Medications Lashawn By Mouth, 0 Refills, Maintenance, 07/06/16 14:19:02 Start Date: 07/06/16 Status: Ordered amLODIPine 2.5 mg oral tablet See Instructions, TAKE THREE TABLETS BY MOUTH EVERY DAY, # 90 tablet, 3 Refills, Maintenance, 08/27/20 8:01:00 EDT, [facility], 157.2, cm, 07/17/20 10:32:00 EDT, Height, 56.2, kg, 08/19/20 8:08:00 EDT, Dry Weight Start Date: 08/27/20 Status: Ordered aspirin 81 mg oral tablet [...] 10/19/19 12:44:00 EDT, Route to Pharmacy Electronically, [facility], 157.2, cm, 04/20/19 9:37:00 [...] Daily, # 90 tablet, 3 Refills, Maintenance, 08/27/20 8:00:00 EDT, Tablet, [facility], Partial fill upon patient request if the prescription is for aschedule II opioid drug., 157.2, cm, 07/17/20 10:32... Start Date: 08/27/20 Status: Ordered Problem List Condition Effective Dates [...]
--- OUTSIDE RECORDS SUMMARY | 2023-08-01 09:57 | XMS_ITS | Continuity of Care Document ---
Author Organization [facility] Address [address] [place] [address]- Care Team Providers Care Director Learning Name Role Phone Bebo Garcia MD Primary Care Physician Encounter [facility] Date(s): 09/26/22 - 10/03/22 [facility] [address] [place], [place] [address] Encounter Diagnosis UTI symptoms(Discharge Diagnosis) - 09/26/22 HTN (hypertension)(Discharge Diagnosis) - 09/26/22 Attending Physician: Bianca MATTHEWS-SCREW MACHINE OPERATOR SWISS TYPE-CDaniella Referring Physician: Bebo Garcia MD Allergies, Adverse Reactions, Alerts Substance Reaction Severity Status Lipitor Active chlorhexidine containing compounds Active NSAIDs GI UPSET Active Immunizations Given and Recorded Vaccine Date Status Refusal Reason [id number] bivalent booster vax 12/16/21 Recorded influenza virus [...] R ecorded SARS-CoV-2 (COVID-19) mRNA-1273 vaccine 04/20/20 Alejandro abarcaen SARS-CoV-2 (COVID-19) mRNA-1273 vaccine 04/20/20 R ecorded [...] toxoids (Td) 05/22/97 Given 1Result Comment: [11/05/2016] [facility] [place] [facility] 2Result Comment: [03/09/2016] [facility] 4Admin Note: per pt historical data rcvd here Medications amLODIPine 5 mg oral tablet 5 mg, 1, tablet, By Mouth, Daily, # 90 tablet, Refills 3, Tot. Refills 3, Maintenance, 08/27/22 7:39:00 EDT, [facility], Partial fill upon patient request [...] tablet, 3 Refills, Maintenance, 08/27/22 7:39:00 EDT, [facility], 156, cm, 08/04/22 9:08:00 EDT, Height, 54.8, kg, 10/15/21 13:40:00 EDT, Dry Weight Start Date: 08/27/22 Status: Ordered Multivitamin 1 tablet, By Mouth, Daily, 0 Refills, Maintenance, 10/23/15 14:53:04 EDT Start Date: 10/23/15 Status: Ordered nitrofurantoin macrocrystals-monohydrate 100 mg oral capsule 1 capsule = 100 mg, By Mouth, 2 times a day, for 7 days, # 14 capsule, 0 Refills, Acute 10/04/22 9:55:00 EDT, 09/27/22 9:55:00 EDT, Capsule, [facility]acy #[id number], Partial fill upon patient request if the prescription is for a schedule II opioid drug., 1... Start Date: 09/27/22 Stop Date: 10/04/22 Status: Ordered Problem List Condition Confirmation Course [...] Dates Health Status Cl inical Service Informant UTI symptoms Discharge Diagnosis 09/26/22 HTN (hypertension) Discharge Diagnosis 09/26/22 Vital Signs Most recent to oldest [Reference Range]: 1 Height 156 cm (09/26/22 11:06 AM) Weight 55.5 kg (09/26/22 11:06 AM) Oxygen Saturation [94-100 %] 98 % (09/26/22 11:06 AM) Pulse Rate [55-90 bpm] 71 bpm (09/26/22 11:06 AM) Body Mass Index [18.5-24.99 kg/m2] 22.81 kg/m2 (09/26/22 11:06 AM) Blood Pressure [90-138/55-84 mm Hg] 179/ 76mm Hg *H* (09/26/22 11:06 AM) Respiratory Rate [16-30 br/min] 17 br/mi n (09/26/22 11:06 AM) Temperature [96.8-100.4 DegF] 97.4 DegF (09/26/22 11:06 AM) Mode of Delivery (Oxygen) Room air (09/26/22 11:06 AM) Blood pressure sites Arm, right (09/26/22 11:06 AM) Temperature Route Temporal (09/26/22 11:06 AM) Dry Weight 55.5 kg (09/26/22 11:06 AM) Weight Obtained Via Patient/family state d (09/26/22 11:06 AM) Dry Weight Obtained Via Patient/family s tated (09/26/22 11:06 AM) Social History Social History Type Response Smoking Status Former smoker entered on: 01/17/13 Sex Patient Care team information Care Team Personnel Name: Bebo Garcia MD Position: [facility] Physician - Primary Care Member Role: PCP Address: Address: [address] [place] [id number]- Name: Kelsy Cyr RN Position: S RN Member Role: Primary Care Nurse Name: Beena Mack [place] Position: [facility] Onco RN Member Role: Primary Care Nurse Care Team Related Persons Name: RACHEL MANCIA Address: home [address] [place] [address]
--- OUTSIDE RECORDS SUMMARY | 2023-08-01 09:57 | XMS_ITS | Continuity of Care Document ---
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(Discharge Diagnosis) - 10/29/20 HTN (hypertension)(Discharge Diagnosis) - 10/29/20 Hypercholesterolemia(Discharge Diagnosis) - 10/29/20 Osteopenia(Discharge Diagnosis) - 10/29/20 Attending Physician: Bebo Garcia MD Allergies, Adverse [...] historical data rcvd here 2Result Comment: [11/05/2016] [facility] [place] [facility] 3Result Comment: [03/09/2016] [facility] 4Location History: [facility] Medications Lashawn By Mouth, 0 Refills, Maintenance, 07/06/16 14:19:02 Start Date: 07/06/16 Status: Ordered amLODIPine 2.5 mg oral tablet See Instructions, TAKE THREE TABLETS BY MOUTH EVERY DAY, # 90 tablet, 11 Refills, Maintenance, 10/29/20 10:45:00 EDT, [facility], 157.2, cm, 10/29/20 10:40:00 EDT, Height, 56.2, kg, 08/19/20 8:08:00 EDT, Dry Weight Start Date: 10/29/20 Status: Ordered aspirin 81 mg oral tablet [...] 10/19/19 12:44:00 EDT, Route to Pharmacy Electronically, [facility] # [facility], 157.2, cm, [...] 3 Refills, Maintenance, 10/29/20 10:46:00 EDT, Tablet, [facility], Partial fill upon patient request if [...] Effective Dates Health Status Clinical Service Informant 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 Discharge Diagnosis 10/29/20 HTN (hypertension) Discharge Diagnosis 10/29/20 Hypercholesterolemia Discharge Diagnosis 10/29/20 Osteopenia Discharge Diagnosis 10/29/20 Vital Signs Most recent to oldest [Reference Range]: 1 2 3 Height 157.2 cm (10/29/20 10:40 AM) 157.2 cm (10/29/20 10:31 AM) 157.2 cm (10/29/20 10:20 AM) Weight 57.4 kg (10/29/20 10:20 AM) Oxygen Saturation [94-100 %] 97 % (10/29/20 10:20 AM) Pulse Rate [55-90 bpm] 65 bpm (10/29/20 10:20 AM) Body Mass Index [18.5-24.99] 23.23 (10/29/20 10:20 AM) Blood Pressure [90-138/55-84 mm Hg] 138/70mm Hg (10/29/20 10:40 AM) 152/70mm Hg *H* (10/29/20 10:31 AM) 152/70mm Hg *H* (10/29/20 10:20 AM) Respiratory Rate [16-30 br/min] 12 br/min *L* (10/29/20 10:20 AM) Mode of Delivery (Oxygen) Room air (10/29/20 10:20 AM) Blood pressure sites Arm, left (10/29/20 10:31 AM) Arm, left (10/29/20 10:20 AM) Weight Obtained Via Standing scale (10/29/20 10:20 AM) Social History Social History Type Response Smoking Status Former smoker entered on: 02/04/14 Sex Female
--- OUTSIDE RECORDS SUMMARY | 2023-08-01 09:57 | XMS_ITS | Continuity of Care Document ---
Author Organization [facility] Oli Karson lt Address [address] [place] [address]- Care Team Providers Care Crm Dynamics Developer Name Role Phone Bebo Garcia MD Primary Care Physician [facility]): 05[facility]22 - 06/04/22 [facility] Adult [address] [place] [address]- Attending Physician: Admjaycob, Servando8 Admitting Physician: AdmtrYari Referring Physician: Admtr, Ar8 Allergies, Adverse Reactions, Alerts Substance Reaction Severity Status Lipitor Active chlorhexidine containing compounds Active NSAIDs GI UPSET Active Immunizations Given and Recorded Vaccine Date Status Refusal Reason [id number] bivalent booster vax 12/16/21 Recorded influenza virus [...] (Td) 05/22/97 Given 1Result Comment: [11/05/2016] [facility] [place] [facility] 2Result Comment: [03/09/2016] [facility] 3Location History: [facility] 4Admin Note: per pt historical data rcvd here Medications amLODIPine 5 mg oral tablet 5 mg, 1, tablet, By Mouth, Daily, # 90 tablet, Refills 3, Tot. Refills 3, Maintenance, 05/05/22 12:05:00 EDT, Route to Pharmacy Electronically, [facility], Partial fill upon patient request [...] tablet, 3 Refills, Maintenance, 05/05/22 12:05:00 EDT, [facility], 156, cm, 05/05/22 11:57:00 EDT, Height, [...] Status Former smoker entered on: 01/17/13 Sex EKG study * Event Display: EKG Authored Date: * Event Display: EKG Authored Date: * Event Display: EKG Authored Date: Note * Event Display: Non BH Lab Results Authored Date: * Event Display: Non BH Lab Results Authored Date: * Event Display: Non BH Lab Results Authored Date: * Event Display: Radiology Result Scanned Authored Date: * Marleen Stallworth: PERFORM Event Display: Radiology Results Scanned Authored Date: [id number] * Marleen Stallworth: PERFORM Event Display: Radiology Results Scanned Authored Date: [id number] MG Breast Views * Event Display: MM Mammogram Authored Date: [id number] Patient Care team information Care Team Personnel Name: Bebo Garcia MD Position: [facility] Primary Care Physician Member Role: PCP Address: Address: [address] [place] [id number]- [place] Name: Kelsy Cyr RN Position: S RN Member Role: Primary Care Nurse Name: Beena Mack [place] Position: [facility] Onco RN Member Role: Primary Care Nurse Care Team Related Persons Name: RACHEL MANCIA Address: home [address] [place] [id number]
--- OUTSIDE RECORDS SUMMARY | 2023-08-01 09:57 | XMS_ITS | Continuity of Care Document ---
Author Organization [facility] Chris Baird Karson lt Address [address] [place] [address]- Care Team Providers Care Pipe Turner Name Role Phone Beob Garcia MD Primary Care Physician [facility]): 05/28/20 - 06/27/20 [facility] Adult [address] [place] [address]- Allergies, Adverse Reactions, Alerts Substance Reaction Severity [...] 02/25/20 9:21:00 EST, Route to Pharmacy Electronically, [facility] # [facility], 157.2, cm, [...] 10/19/19 12:44:00 EDT, Route to Pharmacy Electronically, [facility], 157.2, cm, [...]
--- OUTSIDE RECORDS SUMMARY | 2023-08-01 09:58 | XMS_ITS | Continuity of Care Document ---
Author Organization [facility] Chris Baird Karson lt Address [address] [place] [address]- Care Team Providers Care Stack Clerk Name Role Phone Bebo Garcia MD Primary Care Physician [facility](s): 09/15/21 - 10/15/21 [facility] Chris Baird Adult [address] [place] [address]- Allergies, Adverse Reactions, Alerts Substance Reaction Severity [...] toxoids (Td) 05/22/97 Given 1Result Comment: [11/05/2016] [facility] Comment[facility] 4Admin Note: per pt historical data rcvd here Medications aspirin 81 mg oral tablet 1 tablet = 81 mg, By Mouth, Daily, 0 Refills, Maintenance, 07/07/18 8:59:22 EDT Start Date: 07/07/18 Status: Ordered Calcium 600+D oral tablet 1 tablet, By Mouth, Daily, 0 Refills, Maintenance, 10/23/15 14:52:57 Start Date: 10/23/15 Status: Ordered Macrobid macrocrystals-monohydrate 100 mg oral capsule 1 capsule = 100 mg, By Mouth, 2 times a day, # 14 capsule, 0 Refills, Maintenance, 10/10/21 16:53:00 EDT, Capsule, Partial fill upon patient request if the prescription is for a schedule II opioid drug. Start Date: 10/10/21 Stop Date: 10/17/21 Status: Ordered Multivitamin 1 tablet, By Mouth, Daily, 0 Refills, Maintenance, 10/23/15 14:53:04 EDT Start Date: 10/23/15 Status: Ordered Norvasc 2.5 mg oral tablet 5 mg, 2, tablet, By Mouth, Daily, Refills 0, Maintenance, 10/10/21 16:52:00 EDT, Partial fill upon patient request if the prescription is for a schedule II opioid drug. Start Date: 10/10/21 Status: Ordered Zetia 10 mg oral tablet 1 tablet = 10 mg, By Mouth, Daily, # 90 tablet, 3 Refills, Maintenance, 12/12/20 16:02:00 EDT, Tablet, [facility], Partial fill upon patient request if [...] on: 01/17/13 Sex Care Team Personnel Name: Radha ACEVES, Bebo Reed Address: [address] [place] [id number]
--- OUTSIDE RECORDS SUMMARY | 2023-08-01 09:58 | XMS_ITS | Continuity of Care Document ---
Author Organization [facility] Chris Baird Karson lt Address [address] [place] [address]- Care Team Providers Care Taffy Puller Name Role Phone Radha ACEVES, Bebo Reed Primary Care Physician [facility]s): 02/29/20 - 03/30/[address] [facility] Adult [address] [place] [address]- Allergies, Adverse Reactions, Alerts Substance Reaction Severity [...] 02/25/20 9:21:00 EST, Route to Pharmacy Electronically, [facility] # [facility], 157.2, cm, 01/11/20 [...] 10/19/19 12:44:00 EDT, Route to Pharmacy Electronically, [facility] # [facility], 157.2, cm, [...]
--- OUTSIDE RECORDS SUMMARY | 2023-08-01 09:58 | XMS_ITS | Continuity of Care Document ---
Author Organization [facility] Oli Karson lt Address [address] [place] [address]- Care Team Providers Care Wicker Molded Candles Name Role Phone Bebo Garcia MD Primary Care Physician [phone] [facility]s): 10/09/21 - 11/08/21 [facility] Oli Adult [address] [place] [address]- Allergies, Adverse Reactions, Alerts Substance Reaction Severity [...] toxoids (Td) 05/22/97 Given 1Result Comment: [11/05/2016] [facility] [place] [facility] 2Result Comment: [03/09/2016] [facility] 3Location History: [facility] 4Admin Note: per pt historical data rcvd here Medications amLODIPine 5 mg oral tablet 5 mg, 1, tablet, By Mouth, Daily, # 90 tablet, Refills 3, Tot. Refills 3, Maintenance, 10/30/21 11:26:00 EDT, Route to Pharmacy Electronically, [facility], Partial fill upon patient request [...] tablet, 1 Refills, Maintenance, 11/08/21 19:06:00 EDT, [facility], 156, cm, 10/30/21 10:59:00 [...] Team Personnel Name: Bebo Garcia MD Address: [address] [place] [address] [place] [address]-
--- OUTSIDE RECORDS SUMMARY | 2023-08-01 09:58 | XMS_ITS | Continuity of Care Document ---
Author Organization [facility] lOi Karson lt Address [address] [place] [address]- Care Team Providers Care Ball Sorter Name Role Phone Bebo Garcia MD Primary Care Physician [facility] Date(s): 12/12/20 - 01/11/21 [facility] Oli Adult [address] [place] [address]- Attending Physician: Admtr, [id number] Admitting Physician: Admtr, Ar8 Referring Physician: Admtr, Ar8 Allergies, Adverse Reactions, [...] toxoids (Td) 05/22/97 Given 1Result Comment: [11/05/2016] [facility] 2Result Comment: [03/09/2016] [facility] 3Location History: [facility] 4Admin Note: per pt historical data rcvd here Medications Lashawn By Mouth, 0 Refills, Maintenance, 07/06/16 14:19:02 Start Date: 07/06/16 Status: Ordered amLODIPine 2.5 mg oral tablet See Instructions, TAKE THREE TABLETS BY MOUTH EVERY DAY, # 90 tablet, 11 Refills, Maintenance, 11/10/20 11:12:00 EDT, [facility], 157.2, cm, 10/29/20 10:40:00 [...] 10/19/19 12:44:00 EDT, Route to Pharmacy Electronically, [facility] # [facility], 157.2, cm, 04/20/19 [...] Refills, Maintenance, 12/12/20 16:02:00 EDT, Tablet, [facility], Partial fill upon patient [...]
--- OUTSIDE RECORDS SUMMARY | 2023-08-01 09:58 | XMS_ITS | Continuity of Care Document ---
Author Organization [facility] Oli Karson lt Address [address] [place] [address]- Care Team Providers Care Gill Box Tender Name Role Phone Bebo Garcia MD Primary Care Physician [facility] Date(s): 08/04/21 - 09/03/21 [facility] Adult [address] [place] [address]- Allergies, Adverse Reactions, Alerts Substance Reaction Severity [...] Nima rded influenza virus vaccine, inactivated 3 9/8/14 Re corded Influenza Virus Vaccine (oldterm) 10/22/19 [...] toxoids (Td) 05/22/97 Given 1Result Comment: [11/05/2016] [facility] [place] [facility] 2Result Comment: [03/09/2016] [facility] 3Location History: [facility] 4Admin Note: per pt historical data rcvd here Medications Lashawn By Mouth, 0 Refills, Maintenance, 07/06/16 14:19:02 Start Date: 07/06/16 Status: Ordered amLODIPine 2.5 mg oral tablet See Instructions, TAKE THREE TABLETS BY MOUTH EVERY DAY, # 90 tablet, 11 Refills, Maintenance, 11/10/20 11:12:00 EDT, [facility], 157.2, cm, 10/29/20 10:40:00 EDT, Height, [...] 3 Refills, Maintenance, 12/12/20 16:02:00 EDT, Tablet, [facility], Partial fill upon patient request [...]
--- OUTSIDE RECORDS SUMMARY | 2023-08-01 09:58 | XMS_ITS | Continuity of Care Document ---
Author Organization [facility] Oli Karson lt Address [address] [place] [address]- Care Team Providers Care Tariff Compiler Name Role Phone Radha ACEVES, Bebo Reed Primary Care Physician [facility] Date(s): 08/16/22 - 09/15/22 [facility] Adult [address] [place] [address]- Allergies, Adverse Reactions, Alerts Substance Reaction Severity Status Lipitor Active chlorhexidine containing compounds Active NSAIDs GI UPSET Active Immunizations Given and Recorded Vaccine Date Status Refusal Reason [id number] bivalent booster vax 12/16/21 Recorded influenza virus [...] [facility] [place] [facility]Result Comment: [03/09/2016] [facility] 3Location History: [facility] 4Admin Note: per pt historical data rcvd here Medications amLODIPine 5 mg oral tablet 5 mg, 1, tablet, By Mouth, Daily, # 90 tablet, Refills 3, Tot. Refills 3, Maintenance, 08/27/22 7:39:00 EDT, Route to Pharmacy Electronically, [facility], Partial fill upon patient request [...] tablet, 3 Refills, Maintenance, 08/27/22 7:39:00 EDT, [facility], [facility], cm, 08/04/22 9:08:00 EDT, Height, [...] Personnel Name: Radha ACEVES, Bebo Reed Position: [facility] Physician - Primary Care Member Role: PCP Address: Address: [address] [place] [address]- Name: Kelsy Cyr RN Position: S RN Member Role: Primary Care Nurse Name: Beena Mack [place] Position: [facility] Onco RN Member Role: Primary Care Nurse Care Team Related Persons Name: RACHEL MANCIA Address: home [address] [place] [address]
--- OUTSIDE RECORDS SUMMARY | 2023-08-01 09:58 | XMS_ITS | Continuity of Care Document ---
Author Organization [facility] Chris Baird Karson lt Address [address] [place] [address]- Care Team Providers Care Pill Machine Operator Name Role Phone Bebo Garcia MD Primary Care Physician [phone] [facility](s): 12/08/22 - 01/07/23 [facility] Chris Baird Adult [address] [place] [address]- Allergies, Adverse Reactions, Alerts Substance Reaction Severity Status Lipitor Active chlorhexidine containing compounds Active NSAIDs GI UPSET Active Immunizations Given and Recorded Vaccine Date Status Refusal Reason pneumococcal 20-valent conjugate vaccine 11/02/22 Given [id number] bivalent booster vax 12/16/21 Recorded influenza virus [...] toxoids (Td) 05/22/97 Given 1Result Comment: [11/05/2016] [facility] [place] 2Result Comment: [03/09/2016] [facility] 4Admin Note: per pt historical data rcvd here Medications amLODIPine 5 mg oral tablet 5 mg, 1, tablet, By Mouth, Daily, # 90 tablet, Refills 3, Tot. Refills 3, Maintenance, 08/27/22 7:39:00 EDT, Route to Pharmacy Electronically, [facility], Partial [...] 0 Refills, Maintenance, 11/02/22 12:13:00 EDT, Cream, [facility]/pharmacy #[id number], Partial fill upon patient request if the [...] tablet, 3 Refills, Maintenance, 08/27/22 7:39:00 EDT, [facility], 156, cm, 08/04/22 9:08:00 EDT, Height, [...] Team Personnel Name: Bebo Garcia MD Position: [facility] Physician - Primary Care Member Role: PCP Address: Address: [address] [place] [address]- Name: Kelsy Cyr RN Position: [facility] RN Member Role: Primary Care Nurse Name: Beena Mack [place] Position: [facility] Onco RN Member Role: Primary Care Nurse Care Team Related Persons Name: RACHEL MANCIA Address: [address] [place] [address]
--- OUTSIDE RECORDS SUMMARY | 2023-08-01 09:58 | XMS_ITS | Continuity of Care Document ---
Author Organization [facility] Chris Baird Karson lt Address [address] [place] [address]- Care Team Providers Care Hospital Director Name Role Phone Bebo Garcia MD Primary Care Physician [facility]counter [facility] Date(s): 05/05/22 - 05/12/22 [facility] O[facility] Adult [address] [place] [address]- Attending Physician: Bebo Garcia MD Allergies, Adverse Reactions, Alerts Substance Reaction Severity Status Lipitor Active chlorhexidine containing compounds Active NSAIDs GI UPSET Active Immunizations Given and Recorded Vaccine Date Status Refusal Reason [id number] bivalent booster vax 12/16/21 Recorded influenza virus [...] toxoids (Td) 05/22/97 Given 1Result Comment: [11/05/2016] [facility] 2Result Comment: [03/09/2016] [facility] 4Admin Note: per pt historical data rcvd here Medications amLODIPine 5 mg oral tablet 5 mg, 1, tablet, By Mouth, Daily, # 90 tablet, Refills 3, Tot. Refills 3, Maintenance, 05/05/22 12:05:00 EDT, Route to Pharmacy Electronically, [facility], Partial fill upon patient request [...] tablet, 3 Refills, Maintenance, 05/05/22 12:05:00 EDT, [facility], 156, cm, 05/05/22 11:57:00 EDT, [...] oldest [Reference Range]: 1 2 3 Height 156 cm (05/05/22 11:57 AM) 156 cm (05/05/22 11:41 AM) 156 cm (05/05/22 11:31 AM) Weight 57.9 kg (05/05/22 11:31 AM) Oxygen Saturation [94-100 %] 98 % (05/05/22 11:31 AM) Pulse Rate [55-90 bpm] 66 bpm (05/05/22 11:31 AM) Body Mass Index [18.5-24.99 kg/m2] 23.79 kg/m2 (05/05/22 11:31 AM) Blood Pressure [90-138/55-84 mm Hg] 135/80mm Hg (05/05/22 11:57 AM) 145/66mm Hg *H* (05/05/22 11:41 AM) 150/90mm Hg *H* (05/05/22 11:31 AM) Mode of Delivery (Oxygen) Room air (05/05/22 11:31 AM) Blood pressure sites Arm, left (05/05/22 11:41 AM) Arm, left (05/05/22 11:31 AM) Weight Obtained Via Standing scale (05/05/22 11:31 AM) Social History Social History Type Response Smoking Status Former smoker entered on: 01/17/13 Sex Patient Care team information Care Team Personnel Name: Bebo Garcia MD Position: [facility] Primary Care Physician Member Role: PCP Address: Address: [address] [place] [id number]- Name: Kelsy Cyr RN Position: S RN Member Role: Primary Care Nurse Name: Beena Mack [place] Position: [facility] Onco RN Member Role: Primary Care Nurse Care Team Related Persons Name: RACHEL MANCIA Address: [address] [address]
--- OUTSIDE RECORDS SUMMARY | 2023-08-01 09:58 | XMS_ITS | Continuity of Care Document ---
Author Organization [facility] Karson lt Address [address] [place] [address]- Care Team Providers Care Director Inbound Sales Name Role Phone Radha ACEVES, Bebo Reed Primary Care Physician [facility]counter [facility] Date(s): 09/29/21 - 10/29/21 [facility] Adult [address] [place] [address]- Allergies, Adverse Reactions, Alerts Substance Reaction Severity [...] 3 Refills, Maintenance, 12/12/20 16:02:00 EDT, Tablet, [facility] [...] Personnel Name: Radha ACEVES, Bebo Reed Address: [address] [place] [id number]
--- OUTSIDE RECORDS SUMMARY | 2023-08-01 09:58 | XMS_ITS | Continuity of Care Document ---
Author Organization [facility] Chris Baird Karson lt Address [address] [place] [address]- Care Team Providers Care Interior Design Professor Name Role Phone Bebo Garcia MD Primary Care Physician Encounter [facility] Date(s): 09/17/21 - 10/17/21 [facility] Chris Baird Adult [address] [place] [address]- Allergies, Adverse Reactions, Alerts Substance Reaction Severity [...] 3 Refills, Maintenance, 12/12/20 16:02:00 EDT, Tablet, [facility], Partial fill upon patient request [...] Personnel Name: Radha ACEVES, Bebo Reed Address: [address] [place] [id number]
--- OUTSIDE RECORDS SUMMARY | 2023-08-01 09:58 | XMS_ITS | Continuity of Care Document ---
Author Organization [facility] Address [address] [place] [address]- Care Team Providers Care Correctional Supply Supervisor Name Role Phone Bebo Garcia MD Primary Care Physician Encounter 03/12/22 - 03/19/22 [facility] [address], [facility] [address] [place] [address]- Attending Physician: Bebo Garcia MD Admitting Physician: Bebo Garcia MD Referring Physician: Bebo Garcia MD Allergies, Adverse [...] (Td) 05/22/97 Given 1Result Comment: [11/05/2016] [facility] 2Result Comment: [03/09/2016] [facility] 4Admin Note: per pt historical data rcvd here Medications amLODIPine 5 mg oral tablet 5 mg, 1, tablet, By Mouth, Daily, # 90 tablet, Refills 3, Tot. Refills 3, Maintenance, 10/30/21 11:26:00 EDT, Route to Pharmacy Electronically, [facility], Partial fill upon patient request if [...] tablet, 1 Refills, Maintenance, 11/08/21 19:06:00 EDT, [facility], 156, cm, 10/30/21 10:59:00 [...] Exam Date Time Procedure Performing Provider Status 03/12/22 3:17 PM MM Digital Mammo Screening Severo Julien; Auth (Verified) Notes: (MM Digital Mammo Screening) Reason For Exam: Z12.31 SCREENING RESULT: MM Digital Mammo Screening PROCEDURE: MM Digital Mammo Screening INDICATION: Screening. No known palpable abnormalities. COMPARISON: 03/02/2021 TECHNIQUE: Full-field digital CC and MLO views of both breasts were obtained. In addition, 3D tomosynthesis images of both breasts were acquired. Computer-aided detection (CAD) was utilized in the interpretation of this study. DENSITY: The breast tissue is heterogeneously dense, which may obscure masses. FINDINGS: No suspicious masses, suspicious microcalcifications, or areas of architectural distortion are seen in either breast to suggest malignancy. There are scattered benign appearing calcifications bilaterally. IMPRESSION: No mammographic evidence of malignancy. RECOMMENDATION: Annual mammographic screening BI-RADS: 2 (Benign) Lay letter mailed to patient WSN: [id number] Ordering Physician: Bebo Garcia Dictated By: Kaden Hopson MD Dictated Date/Time: 03/12/22 3:44 pm Reviewed By: Kaden Hopson MD Signed By: Kaden Hopson MD Signed Date/Time: 03/12/22 3:44 pm Transcribed By: ALLISON Flag Signalman Date/Time: 03/12/22 3:36 pm Birads: Social History Social History Type Response Smoking Status Former smoker entered on: 01/17/13 Sex MG Breast Screening * BHSPowerscribe , CIS S: TRANSCRIBE Kaden Hopson MD: VERIFY Event Display: Result: Authored Date: [id number] PROCEDURE: MM Digital Mammo Screening INDICATION: Screening. No known palpable abnormalities. COMPARISON: 03/02/2021 TECHNIQUE: Full-field digital CC and MLO views of both breasts were obtained. In addition, 3D tomosynthesis images of both breasts were acquired. Computer-aided detection (CAD) was utilized in the interpretation of this study. DENSITY: The breast tissue is heterogeneously dense, which may obscure masses. FINDINGS: No suspicious masses, suspicious microcalcifications, or areas of architectural distortion are seen in either breast to suggest malignancy. There are scattered benign appearing calcifications bilaterally. IMPRESSION: No mammographic evidence of malignancy. RECOMMENDATION: Annual mammographic screening BI-RADS: 2 (Benign) Lay letter mailed to patient WSN: [id number] Ordering Physician: Bebo Garcia Dictated By: Kaden Hopson MD Dictated Date/Time: 03/12/22 3:44 pm Reviewed By: Kaden Hopson MD Signed By: Kaden Hopson MD Signed Date/Time: 03/12/22 3:44 pm Transcribed By: ALLISON Flag Signalman Date/Time: 03/12/22 3:36 pm Birads: Patient Care team information Care Team Personnel Name: Bebo Garcia MD Position: [facility] Primary Care Physician Member Role: PCP Address: Address: [address] [place] [id number]- Name: Kelsy Cyr RN Position: S RN Member Role: Primary Care Nurse Name: Beena Mack [place] Position: S Onco RN Member Role: Primary Care Nurse Care Team Related Persons Name: APRYLRACHEL SALDANA Address: home [address] [place] [address]
--- OUTSIDE RECORDS SUMMARY | 2023-08-01 09:58 | XMS_ITS | Continuity of Care Document ---
[facility] Karson [facility] Address [address] [place] [address]- Care Team Providers Care Patient Carrier Name Role Phone Radha ACEVES, Bebo Reed Primary Care Physician [facility]): 05/05/23 - 06/04/23 [facility] Adult [address] [place] [address]- Allergies, Adverse Reactions, Alerts Substance Reaction Severity Status Lipitor Active chlorhexidine containing compounds Active NSAIDs GI UPSET Active Immunizations Given and Recorded Vaccine Date Status Refusal Reason RSV vaccine preF3, recombinant 01/05/23 Recorded SARS-CoV-2(COVID-19)mRNA-LNP vac([id number]) 11/29/22 Recorded influenza virus vaccine, inactivated 11/21/22 Nima rded influenza virus vaccine, inactivated 12/14/21 Nima rded [...] virus vaccine, inactivated 3 10/29/13 Re corded pneumococcal 20-valent conjugate vaccine 11/02/22 Given [id number] bivalent booster vax 08/17/22 Recorded [id number] bivalent booster vax 12/16/21 Recorded SARS-CoV-2 (COVID-19) mRNA-1273 vaccine 01/05/21 R ecorded [...] toxoids (Td) 05/22/97 Given 1Result Comment: [11/05/2016] [facility] [place] 2Result Comment: [03/09/2016] [facility] 3Location History: [facility] 4Admin Note: per pt historical data rcvd here Medications Lashawn 24 Hour Allergy = 180 mg, By Mouth, Daily, 0 Refills, Maintenance, 04/25/23 11:18:00 EST, Partial fill upon patientrequest if the prescription is for a schedule II opioid drug. Start Date: 04/25/23 Status: Ordered amLODIPine 5 mg oral tablet 5 mg, 1, tablet, By Mouth, Daily, # 90 tablet, Refills 3, Tot. Refills 3, Maintenance, 08/27/22 7:39:00 EDT, Route to Pharmacy Electronically, [facility], Partial fill upon patient request [...] tablet, 3 Refills, Maintenance, 08/27/22 7:39:00 EDT, [facility], 156, cm, 08/04/22 9:08:00 EDT, Height, 54.8, kg, 10/15/21 13:40:00 EDT, Dry Weight Start Date: 08/27/22 Status: Ordered gabapentin 300 mg oral capsule 300 mg, 1, capsule, By Mouth, Daily at bedtime, # 90 capsule, Refills 0, Tot. Refills 0, Maintenance, 04/25/23 12:09:00 EST, Route to Pharmacy Electronically, [facility]/pharmacy #[id number], Partial fill upon patient request if the prescription is for a schedule... Start Date: 04/25/23 Status: Ordered Multivitamin 1 tablet, By Mouth, Daily, 0 Refills, Maintenance, 10/23/15 14:53:04 EDT Start Date: 10/23/15 Status: Ordered physical therapy physical therapy, See Instructions, # 1 each, Refills 0, Tot. 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 Active Cerebrovascular disease Confirmed Active Cervical spondylosis Confirmed Active Colonoscopy 1, 2 Confirmed Active Depression, unspecified Confirmed Active Dysfunction of left eustachian tube Confirmed Active Hematuria, gross Confirmed Active History of bunionectomy of left great toe Confirmed Active Hypercholesterolemia Confirmed Active HTN (hypertension) Confirmed Active Hypogammaglobulinemia Confirmed Active Abnormal liver function tests Confirmed Active Lumbar radiculopathy, right Confirmed Active Osteoarthritis Confirmed Active Osteoporosis 3, 4 Confirmed Active Pain in lower limb Confirmed Active Rhinitis Confirmed Active Subclinical hypothyroidism Confirmed Active Vitiligo Confirmed Active 1Colonoscopy 2019 -. 2colo 2009 nl, repeat 2019 3Osteoporosis on 1 view bone density 2022. 4bone density 07/2010 osteopenia but no osteoporosis, pt. to d/c fosamax and recheck bone density 07/2012 Social History Social History Type Response Smoking Status Former smoker entered on: 01/17/13 Sex Patient Care team information Care Team Personnel Name: Radha ACEVES, Bebo Reed Position: [facility] Physician - Primary Care Member Role: PCP Address: Address: [address] [place] [id number]- Name: Kelsy Cyr RN Position: S RN Member Role: Primary Care Nurse Name: Beena Mack [place] Position: [facility] Onco RN Member Role: Primary Care Nurse Care Team Related Persons Name: RACHEL MANCIA Address: [address] [place] [address]
--- OUTSIDE RECORDS SUMMARY | 2023-08-01 09:58 | XMS_ITS | Continuity of Care Document ---
Author Organization [facility] Address [address] [place] [address]- Care Team Providers Care Interventional Cardiologist Name Role Phone Radha ACEVES, Bebo Reed Primary Care Physician [phone] Encounter 03/02/21 - 03/09/21 [facility] [address], [address] [place] [address]- Attending Physician: Bebo Garcia MD Admitting Physician: [...] Given 1Result Comment: [11/05/2016] [facility] 2Result Comment: [03/09/2016] [facility] 3[facility] 4Admin Note: per pt historical data rcvd here Medications Lashawn By Mouth, 0 Refills, Maintenance, 07/06/16 14:19:02 Start Date: 07/06/16 Status: Ordered amLODIPine 2.5 mg oral tablet See Instructions, TAKE THREE TABLETS BY MOUTH EVERY DAY, # 90 tablet, 11 Refills, Maintenance, 11/10/20 11:12:00 EDT, [facility], 157.2, cm, 10/29/20 10:40:00 [...] EDT, Route to Pharmacy Electronically, [id number], 157.2, cm, 04/20/19 [...] 3 Refills, Maintenance, 12/12/20 16:02:00 EDT, Tablet, [facility], Partial fill upon patient [...]
--- OUTSIDE RECORDS SUMMARY | 2023-08-01 09:58 | XMS_ITS | Continuity of Care Document ---
Author Organization [facility] Chris Baird Karson lt Address [address] [place] [address]- Care Team Providers Care Brick And Blocker Aid Labor Name Role Phone Bebo Garcia MD Primary Care Physician [facility] 09/15/21 - 10/15/21 [facility] Chris Baird Adult [address] [place] [address]- Allergies, Adverse Reactions, Alerts Substance Reaction Severity [...] R ecorded influenza virus vaccine, inactivated 11/18/20 Niam rded influenza virus vaccine, inactivated 11/28/18 Nima [...] Refills, Maintenance, 12/12/20 16:02:00 EDT, Tablet, [facility], Partial fill upon patient [...] Personnel Name: Radha ACEVES, Bebo Reed Address: [address] [place] [id number] [[email or web address]]
--- OUTSIDE RECORDS SUMMARY | 2023-08-01 09:58 | XMS_ITS | Continuity of Care Document ---
Author Organization [facility] Oli Karson lt Address [address] [place] [address]- Care Team Providers Care Splunk Dashboard Developer Name Role Phone Bebo Garcia MD Primary Care Physician [phone] Encounter [facility] Date(s): 09/28/21 - 10/05/21 [facility] Oli Adult [address] [place] [address]- Encounter Diagnosis Lightheadedness(Discharge Diagnosis) - 09/28/21 Unsteady gait(Discharge Diagnosis) - 09/28/21 Hypotension(Discharge Diagnosis) - 09/28/21 Attending Physician: Not on Staff, Attending MD Allergies, Adverse Reactions, Alerts Substance Reaction [...] [facility] 3[facility] 4Admin Note: per pt historical data rcvd here Medications Lashawn By Mouth, 0 Refills, Maintenance, 07/06/16 14:19:02 Start Date: 07/06/16 Status: Ordered amLODIPine 2.5 mg oral tablet See Instructions, TAKE THREE TABLETS BY MOUTH EVERY DAY, # 90 tablet, 11 Refills, Maintenance, 11/10/20 11:12:00 EDT, [facility], 157.2, cm, 10/29/20 10:40:00 EDT, [...] 16:02:00 EDT, Tablet, [facility], Partial fill upon patient request [...] Dates Health Status Cl inical Service Informant Lightheadedness Discharge Diagnosis 09/28/21 Unsteady gait Discharge Diagnosis 09/28/21 Hypotension Discharge Diagnosis 09/28/21 Vital Signs Most recent to oldest [Reference Range]: 1 Height 157 cm (09/28/21 2:53 PM) Weight 56.0 kg (09/28/21 2:53 PM) Oxygen Saturation [94-100 %] 98 % (09/28/21 2:53 PM) Pulse Rate [55-90 bpm] 72 bpm (09/28/21 2:53 PM) Body Mass Index [18.5-24.99] 22.72 (09/28/21 2:53 PM) Blood Pressure [90-138/55-84 mm Hg] 128/ 64mm Hg (09/28/21 2:53 PM) Respiratory Rate [16-30 br/min] 20 br/mi n (09/28/21 2:53 PM) Mode of Delivery (Oxygen) Room air (09/28/21 2:53 PM) Blood pressure sites Arm, left (09/28/21 2:53 PM) Weight Obtained Via Standing scale (09/28/21 2:53 PM) Social History Social History Type Response Smoking Status Former smoker entered on: 01/17/13 Sex
--- OUTSIDE RECORDS SUMMARY | 2023-08-01 09:58 | XMS_ITS | Continuity of Care Document ---
Author Organization [facility] Oli Karson lt Address [address] [place] [address]- Care Team Providers Care Tacker Elastic Band Name Role Phone Bebo Garcia MD Primary Care Physician [facility] Date[facility]s): 09/28/21 - 10/28/21 [facility] Adult [address] [place] [address]- Attending Physician: Admtr, Ar8 Admitting Physician: Admtr, Ar8 Referring Physician: Admtr, [...] Refills, Maintenance, 12/12/20 16:02:00 EDT, Tablet, [facility], Partial fill upon patient [...] Personnel Name: Radha ACEVES, Bebo Reed Address: [address] [place] [phone]-
--- OUTSIDE RECORDS SUMMARY | 2023-08-01 09:59 | XMS_ITS | Continuity of Care Document ---
Author Organization [facility] Chris Baird Karson lt Address [address] [place] [address]- Care Team Providers Care Breaker Off Name Role Phone Bebo Garcia MD Primary Care Physician [facility] Date(s): 09/15/21 - 10/15/21 [facility] Chris Baird Adult [address] [place] [address]- Allergies, Adverse Reactions, Alerts Substance Reaction Severity [...] 3 Refills, Maintenance, 12/12/20 16:02:00 EDT, Tablet, [facility], Partial fill upon patient request [...] Personnel Name: Radha ACEVES, Bebo Reed Address: [address] [place] [id number]
--- OUTSIDE RECORDS SUMMARY | 2023-08-01 09:59 | XMS_ITS | Continuity of Care Document ---
Author Organization [facility] Address [address] [place] [address] christa, [address] [place] [address]- Care Team Providers Care Workday Financials Consultant Name Role Phone Radha ACEVES, Bebo Reed Primary Care Physician [facility] Date(s): 12/15/21 - 01/14/[address], [address] [place], [place] [address] Allergies, Adverse Reactions, Alerts Substance Reaction [...] toxoids (Td) 05/22/97 Given 1Result Comment: [11/05/2016] [facility] 2Result Comment: [03/09/2016] [facility] 3[facility] 4Admin Note: per pt historical data rcvd here Medications amLODIPine 5 mg oral tablet 5 mg, 1, tablet, By Mouth, Daily, # 90 tablet, Refills 3, Tot. Refills 3, Maintenance, 10/30/21 11:26:00 EDT, Route to Pharmacy Electronically, [facility], Partial fill upon patient request [...] tablet, 1 Refills, Maintenance, 11/08/21 19:06:00 EDT, [facility], 156, cm, 10/30/21 [...] Team Personnel Name: Bebo Garcia MD Position: [facility] Primary Care Physician Member Role: PCP Address: Address: [address] [place] [address]- Name: Kelsy Cyr RN Position: S RN Member Role: Primary Care Nurse Name: Beena Mack [place] Position: S Onco RN Member Role: Primary Care Nurse Care Team Related Persons Name: RACHEL MANCIA Address: home [address] [place] [address]
--- OUTSIDE RECORDS SUMMARY | 2023-08-01 09:59 | XMS_ITS | Continuity of Care Document ---
Author Organization [facility] Chris Baird Karson lt Address [address] [place] [address]- Care Team Providers Care Industrial Boilermaker Name Role Phone Radha ACEVES, Bebo Reed Primary Care Physician [facility] Date(s): 11/17/21 - 12/17/21 [facility] Oli Adult [address] [place] [address]- Allergies, Adverse Reactions, Alerts Substance Reaction Severity [...] toxoids (Td) 05/22/97 Given 1Result Comment: [11/05/2016] [facility] 2Result Comment: [03/09/2016] [facility] 3Location History: [facility] 4Admin Note: per pt historical data rcvd here Medications amLODIPine 5 mg oral tablet 5 mg, 1, tablet, By Mouth, Daily, # 90 tablet, Refills 3, Tot. Refills 3, Maintenance, 10/30/21 11:26:00 EDT, [facility] to Pharmacy Electronically[facility], Partial fill upon patient request if [...] tablet, 1 Refills, Maintenance, 11/08/21 19:06:00 EDT, [facility], 156, cm, 10/30/21 [...] Name: Radha ACEVES, Bebo Reed Address: Address: [address] [place] [address] [facility] [place] [address]
--- OUTSIDE RECORDS SUMMARY | 2023-08-01 09:59 | XMS_ITS | Continuity of Care Document ---
Author Organization [facility] Address [address] [place] [address]- Care Team Providers Care Residential Fee Appraiser Name Role Phone Radha ACEVES, Bebo Reed Primary Care Physician [facility] 04/10/23 - 05/10/23 [facility] [address] [place] [address]- Attending Physician: Yari Rivera Admitting Physician: Yari Rivera Referring Physician: AdmtrYari Allergies, Adverse Reactions, Alerts Substance Reaction Severity Status Lipitor Active chlorhexidine containing compounds Active NSAIDs GI UPSET Active Immunizations Given and Recorded Vaccine Date Status Refusal Reason pneumococcal 20-valent conjugate vaccine 11/02/22 Given [id number] bivalent booster vax 12/16/21 Recorded influenza virus [...] toxoids (Td) 05/22/97 Given 1Result Comment: [11/05/2016] [facility] [place] [facility] 2Result Comment: [03/09/2016] [facility] 3Location History: [facility] 4Admin Note: per pt historical data [...] 08/27/22 7:39:00 EDT, Route to Pharmacy Electronically, [facility], Partial fill upon patient request [...] tablet, 3 Refills, Maintenance, 08/27/22 7:39:00 EDT, [facility], 156, cm, 08/04/22 9:08:00 EDT, Height, 54.8, kg, 10/15/21 13:40:00 EDT, Dry Weight Start Date: 08/27/22 Status: Ordered Gabapentin = 300 mg, By Mouth, Daily, 0 Refills, Maintenance, 04/10/23 10:51:00 EST, Partial fill upon patientrequest if the prescription is for a schedule II opioid drug. Start Date: 04/10/23 Status: Ordered gabapentin 300 mg oral capsule 300 mg, 1, capsule, By Mouth, Daily at bedtime, # 90 capsule, Refills 0, Tot. Refills 0, Maintenance, 04/25/23 12:09:00 EST, [id number] Partial fill upon patient request if the prescription is for a schedule... Start Date: 04/25/23 Status: Ordered Medrol Dosepak 4 mg oral tablet 1 pack/packet, By Mouth, Daily, for 6 days, as directed on package labeling, # 21 tablet, 5 Refills, Acute 06/14/23 17:01:00 EDT, 05/09/23 17:01:00 EDT, Tablet, [facility]/pharmacy #[id number], Partial fill upon patient request if the prescription is for a schedul... Start Date: 05/09/23 Stop Date: 06/14/23 Status: Ordered Multivitamin 1 tablet, By Mouth, [...] Personnel Name: Radha ACEVES, Bebo Reed Position: [facility] Physician - Primary Care Member Role: PCP Address: Address: [address] [place] [id number]- Name: Kelsy Cyr RN Position: S RN Member Role: Primary Care Nurse Name: Beena Mack [place] Position: [facility] Onco RN Member Role: Primary Care Nurse Care Team Related Persons Name: RACHEL MANCIA Address: [address] [place] [address]
--- OUTSIDE RECORDS SUMMARY | 2023-08-01 09:59 | XMS_ITS | Continuity of Care Document ---
Author Organization [facility] Chris Baird Karson lt Address [address] [place] [address]- Care Team Providers Care Plant Operations Vice President Name Role Phone Bebo Garcia MD Primary Care Physician [phone] [facility]s): 09/15/21 - 10/15/21 [facility] Chris Baird Adult [address] [place] [address]- Allergies, Adverse Reactions, Alerts Substance Reaction Severity [...] 3 Refills, Maintenance, 12/12/20 16:02:00 EDT, Tablet, [facility], Partial fill upon patient request [...] Personnel Name: Radha ACEVES, Bebo Reed Address: [address] [place] [id number]
--- OUTSIDE RECORDS SUMMARY | 2023-08-01 09:59 | XMS_ITS | Continuity of Care Document ---
Author Organization [facility] Chris Baird Karson lt Address [address] [place] [address]- Care Team Providers Care Telecom Specialist Name Role Phone Bebo Garcia MD Primary Care Physician [phone] [facility](s): 10/19/22 - 11/18/22 [facility] Oli Adult [address] [place] [address]- Allergies, Adverse Reactions, Alerts Substance Reaction Severity Status Lipitor Active chlorhexidine containing compounds Active NSAIDs GI UPSET Active Immunizations Given and Recorded Vaccine Date Status Refusal Reason pneumococcal 20-valent conjugate vaccine 11/02/22 Given [id number] bivalent booster vax 12/16/21 Recorded influenza virus vaccine, inactivated 12/14/21 Nima rded influenza virus vaccine, inactivated 11/18/20 Nima rded influenza virus vaccine, inactivated 11/28/18 Nima rded influenza virus vaccine, inactivated 11/14/17 Nima rded influenza virus vaccine, inactivated 11/07/17 Give n influenza virus vaccine, inactivated 1 11/02/16 Re corded influenza virus vaccine, inactivated 2 01/31/16 Re corded influenza virus vaccine, inactivated 11/10/15 Nmia rded influenza virus vaccine, inactivated 12/26/14 Nima [...] [facility] [place] [facility] 2Result Comment: [03/09/2016] [facility] 3Location History: [facility] 4Admin Note: per pt historical data rcvd here Medications amLODIPine 5 mg oral tablet 5 mg, 1, tablet, By Mouth, Daily, # 90 tablet, Refills 3, Tot. Refills 3, Maintenance, 08/27/22 7:39:00 EDT, Route to Pharmacy Electronically, [facility], Partial fill upon patient [...] 0 Refills, Maintenance, 11/02/22 12:13:00 EDT, Cream, [facility]/pharmacy #[id number], Partial fill upon patient request if the [...] tablet, 3 Refills, Maintenance, 08/27/22 7:39:00 EDT, [facility], 156, cm, 08/04/22 9:08:00 EDT, Height, [...] Team Personnel Name: Bebo Garcia MD Position: [facility] Physician - Primary Care Member Role: PCP Address: Address: [address] [place] [address]- Name: Kelsy Cyr RN Position: [facility] RN Member Role: Primary Care Nurse Name: Beena Mack [place] Position: [facility] Onco RN Member Role: Primary Care Nurse Care Team Related Persons Name: RACHEL MANCIA Address: [address] [place] [address]
--- OUTSIDE RECORDS SUMMARY | 2023-08-01 09:59 | XMS_ITS | Continuity of Care Document ---
Author Organization [facility] Oli Karson lt Address [address] [place] [address]- Care Team Providers Care Flatbed Truck Driver Name Role Phone Bebo Garcia MD Primary Care Physician [facility] Date(s): 11/30/22 - 12/30/22 [facility] Oli Adult [address] [place] [address]- Allergies, Adverse Reactions, Alerts Substance Reaction Severity Status Lipitor Active chlorhexidine containing compounds Active NSAIDs GI UPSET Active Immunizations Given and Recorded Vaccine Date Status Refusal Reason pneumococcal 20-valent conjugate vaccine 11/02/22 Given [id number] bivalent booster vax 12/16/21 Recorded influenza virus [...] 05/22/97 Given 1Result Comment: [11/05/2016] [facility] [place] [facility] 2Result Comment: [03/09/2016] [facility] 3Location History: [facility] 4Admin Note: per pt historical data rcvd here Medications amLODIPine 5 mg oral tablet 5 mg, 1, tablet, By Mouth, Daily, # 90 tablet, Refills 3, Tot. Refills 3, Maintenance, 08/27/22 7:39:00 EDT, [facility], Partial fill upon patient request [...] 0 Refills, Maintenance, 11/02/22 12:13:00 EDT, Cream, [facility]/pharmacy #[id number], Partial fill upon patient request if the [...] tablet, 3 Refills, Maintenance, 08/27/22 7:39:00 EDT, [facility], 156, cm, 08/04/22 9:08:00 EDT, Height, [...] Team Personnel Name: Bebo Garcia MD Position: [facility] Physician - Primary Care Member Role: PCP Address: Address: [address] [place] [address]- Name: Kelsy Cyr RN Position: S RN Member Role: Primary Care Nurse Name: Beena Mack [place] Position: [facility] Onco RN Member Role: Primary Care Nurse Care Team Related Persons Name: RACHEL MANCIA Address: [address] [place] [address]
--- OUTSIDE RECORDS SUMMARY | 2023-08-01 09:59 | XMS_ITS | Continuity of Care Document ---
Author Organization [facility] Oli Karson lt Address [address] [place] [address]- Care Team Providers Care Manager Pathology Name Role Phone Radha ACEVES, Bebo Reed Primary Care Physician [facility](s): 11/10/21 - 12/10/21 [facility] Oli Adult [address] [place] [address]- Allergies, Adverse Reactions, Alerts Substance Reaction Severity [...] toxoids (Td) 05/22/97 Given 1Result Comment: [11/05/2016] [facility] [place] [facility] 2Result Comment: [03/09/2016] [facility] 4Admin Note: per pt historical data rcvd here Medications amLODIPine 5 mg oral tablet 5 mg, 1, tablet, By Mouth, Daily, # 90 tablet, Refills 3, Tot. Refills 3, Maintenance, 10/30/21 11:26:00 EDT, Route to Pharmacy Electronically, [facility], Partial fill upon patient [...] tablet, 1 Refills, Maintenance, 11/08/21 19:06:00 EDT, [facility], 156, cm, [...] Name: Radha ACEVES, Bebo Reed Address: Address: [address] [place] [id number]
--- OUTSIDE RECORDS SUMMARY | 2023-08-01 09:59 | XMS_ITS | Continuity of Care Document ---
Author Organization [facility] Chris Baird Karson lt Address [address] [place] [address]- Care Team Providers Care Tmr Teacher Name Role Phone Bebo Garcia MD Primary Care Physician [facility]s): 12/07/22 - 01/06/23 [facility] Chris Baird Adult [address] [place] [address]- Allergies, Adverse Reactions, Alerts Substance Reaction Severity Status Lipitor Active chlorhexidine containing compounds Active NSAIDs GI UPSET Active Immunizations Given and Recorded Vaccine Date Status Refusal Reason pneumococcal 20-valent conjugate vaccine 11/02/22 Given [id number] bivalent booster vax 12/16/21 Recorded influenza virus [...] (Td) 05/22/97 Given 1Result Comment: [11/05/2016] [facility] [place] [facility] 2Result Comment: [03/09/2016] [facility] 3[facility] 4Admin Note: per pt historical data rcvd here Medications amLODIPine 5 mg oral tablet 5 mg, 1, tablet, By Mouth, Daily, # 90 tablet, Refills 3, Tot. Refills 3, Maintenance, 08/27/22 7:39:00 EDT, Route to Pharmacy Electronically, [facility], Partial fill upon patient request if [...] Refills, Maintenance, 11/02/22 12:13:00 EDT, Cream, [facility]/pharmacy #[id number], Partial fill upon patient request if the [...] 3 Refills, Maintenance, 08/27/22 7:39:00 EDT, [facility], 156, cm, 08/04/22 9:08:00 EDT, [...] Team Personnel Name: Bebo Garcia MD Position: [facility] Physician - Primary Care Member Role: PCP Address: Address: [address] [place] [id number]- Name: Kelsy Cyr RN Position: [facility] RN Member Role: Primary Care Nurse Name: Beena Mack [place] Position: [facility] Onco RN Member Role: Primary Care Nurse Care Team Related Persons Name: RACHEL MANCIA Address: [address] [place] [address]
--- OUTSIDE RECORDS SUMMARY | 2023-08-01 09:59 | XMS_ITS | Continuity of Care Document ---
Author Organization [facility] ter Address [address] [place] [address]- Care Team Providers Care Child Psychiatrist Name Role Phone Bebo Garcia MD Primary Care Physician [facility]): [facility] - 09/08/[address] [address]- Discharge Disposition: A-D/C Home Attending Physician: Jorden Mae MD Admitting Physician: Jorden Mae MD Referring Physician: Jorden Mae MD Allergies, Adverse Reactions, Alerts Substance Reaction [...] toxoids (Td) 05/22/97 Given 1Result Comment: [11/05/2016] [facility] [place] [facility] 2Result Comment: [03/09/2016] [facility] 3Location History: [facility] 4Admin Note: per pt historical data rcvd here Medications Lashawn By Mouth, 0 Refills, Maintenance, 07/06/16 14:19:02 Start Date: 07/06/16 Status: Ordered amLODIPine 2.5 mg oral tablet See Instructions, TAKE THREE TABLETS BY MOUTH EVERY DAY, # 90 tablet, 11 Refills, Maintenance, 11/10/20 11:12:00 EDT, [facility], 157.2, cm, 10/29/20 10:40:00 EDT, Height, 56.2, kg, 08/19/20 8:08:00 EDT, Dry Weight Start Date: 11/10/20 Status: Ordered amLODIPine 5 mg oral tablet 7.5 mg, Tablet, By Mouth, STAT, 09/08/21 8:03:00 EDT Start Date: 09/08/21 Stop Date: 09/08/21 Status: Completed aspirin 81 mg oral tablet 1 tablet [...] Not Route Start Date: 08/19/21 Status: Ordered Labetalol Inj 10 mg, Injection, IV Push Slowly, Once, STAT, 09/07/21 17:10:00 EDT, Stop date 09/07/21 17:10:00 EDT Start Date: 09/07/21 Stop Date: 09/07/21 Status: Completed Multivitamin By Mouth, Daily, 0 Refills, Maintenance, 10/23/15 14:53:04 Start Date: 10/23/15 Status: Ordered oxyCODONE 5 mg oral tablet 5 mg, 1, tablet, By Mouth, Every 6 hours, PRN, for 3 days, # 12 tablet, Refills 0, Tot. Refills 0, Acute 09/11/21 10:31:00 EDT, Pain , Moderate, 09/08/21 10:31:00 EDT, Route to Pharmacy Electronically, [facility], Partial fill upon patie... Start Date: 09/08/21 Stop Date: 09/11/21 Status: Ordered valacyclovir 1 gm oral tablet 1 tablet = 1 Gm, By Mouth, 0 Refills, Maintenance, 08/15/18 13:32:00 EDT Start Date: 08/15/18 Status: Ordered Zetia 10 mg oral tablet 1 tablet = 10 mg, By Mouth, Daily, # 90 tablet, 3 Refills, Maintenance, 12/12/20 16:02:00 EDT, Tablet, [facility], Partial fill upon [...] oldest [Reference Range]: 1 2 3 Height 157 cm (09/07/21 4:30 PM) Weight 54.2 kg (09/08/21 5:29 AM) 54.4 kg (09/07/21 4:30 PM) 54.9 kg (09/07/21 1:36 PM) Oxygen Saturation [94-100 %] 95 % (09/08/21 8:00 AM) 92 % *L* (09/08/21 7:00 AM) 95 % (09/08/21 6:00 AM) Pulse Rate [55-90 bpm] 77 bpm (09/07/21 5:35 PM) 74 bpm (09/07/21 4:30 PM) 72 bpm (09/07/21 4:11 PM) Body Mass Index [18.5-24.99] 22.07 (09/07/21 4:30 PM) Blood Pressure [90-138/55-84 mm Hg] 120/64mm Hg (09/08/21 9:20 AM) 125/62mm Hg (09/08/21 8:00 AM) 121/56mm Hg (09/08/21 7:00 AM) Respiratory Rate [16-30 br/min] 15 br/min *L* (09/08/21 9:09 AM) 11 br/min *L* (09/08/21 8:00 AM) 16 br/min (09/08/21 7:00 AM) Temperature [96.8-100.4 DegF] 98.2 DegF (09/08/21 4:00 AM) 98.2 DegF (09/08/21 12:00 AM) 97.9 DegF (09/07/21 8:00 PM) Mode of Delivery (Oxygen) Room air (09/08/21 8:00 AM) Room air (09/08/21 7:00 AM) Room air (09/08/21 6:00 AM) Blood pressure sites Arm, left (09/08/21 7:00 AM) Arm, left (09/08/21 6:00 AM) Arm, left (09/08/21 5:00 AM) Temperature Route Oral (09/08/21 4:00 AM) Oral (09/08/21 12:00 AM) Oral (09/07/21 8:00 PM) Dry Weight 54.4 kg (09/07/21 4:30 PM) 54.9 kg (09/07/21 1:36 PM) Weight Obtained Via Bed scale (09/08/21 5:29 AM) Patient/family stated (09/07/21 4:30 PM) Standing scale (09/07/21 1:36 PM) Dry Weight Obtained Via Patient/family stated (09/07/21 4:30 PM) Standing scale (09/07/21 1:36 PM) Social History Social History Type Response Smoking Status Former smoker entered on: 01/17/13 Sex Female
--- OUTSIDE RECORDS SUMMARY | 2023-08-01 09:59 | XMS_ITS | Continuity of Care Document ---
Author Organization [facility] Oli Karson lt Address [address] [place] [address]- Care Team Providers Care Supervisor [employer] Name Role Phone Bebo Garcia MD Primary Care Physician [facility]): 11/[facility]/19 - 12/02/19 [facility] O[facility] Adult [address] [place] [address]- [facility] Allergies, Adverse Reactions, Alerts Substance Reaction Severity [...] 08/22/19 12:56:00 EDT, Route to Pharmacy Electronically, [facility], 157.2, cm, 04/20/19 [...] EDT, Route to Pharmacy Electronically, [facility], 157.2, cm, 04/20/19 [...]
--- OUTSIDE RECORDS SUMMARY | 2023-08-01 09:59 | XMS_ITS | Continuity of Care Document ---
Author Organization [facility] Karson lt Address [address] [place] [address]- Care Team Providers Care Giver Name Role Phone Radha ACEVES, Bebo Reed Primary Care Physician [facility] Date(s): 02/04/22 - 03/06/22 [facility] Adult [address] [place] [address]- Allergies, Adverse Reactions, Alerts Substance Reaction Severity [...] toxoids (Td) 05/22/97 Given 1Result Comment: [11/05/2016] [facility] [place] [facility] 2Result Comment: [03/09/2016] [facility] 3Location History[facility] 4Admin Note: per pt historical data rcvd here Medications amLODIPine 5 mg oral tablet 5 mg, 1, tablet, By Mouth, Daily, # 90 tablet, Refills 3, Tot. Refills 3, Maintenance, 10/30/21 11:26:00 EDT, Route to Pharmacy Electronically, [facility], Partial fill upon patient request if [...] 1 Refills, Maintenance, 11/08/21 19:06:00 EDT, [facility], 156, cm, 10/30/21 [...] MD Position: [facility] Primary Care Physician Member Role: PCP Address: Address: [address] [place] [address]- Name: Kelsy Cyr RN Position: S RN Member Role: Primary Care Nurse Name: Beena Mack [place] Position: [facility] Onco RN Member Role: Primary Care Nurse Care Team Related Persons Name: RACHEL MANCIA Address: home [address] [place] [address]
--- OUTSIDE RECORDS SUMMARY | 2023-08-01 09:59 | XMS_ITS | Continuity of Care Document ---
Author Organization [facility] Chris Baird Karson lt Address [address] [place] [address]- Care Team Providers Care Manager Of Software Name Role Phone Bebo Garcia MD Primary Care Physician [facility](s): 10/12/21 - 11/11/21 [facility] Chris Baird Adult [address] [place] [address]- Allergies, Adverse Reactions, Alerts Substance Reaction Severity [...] (Td) 05/22/97 Given 1Result Comment: [11/05/2016] [facility] [place] [facility] 2Result Comment: [03/09/2016] [facility] 3Location History: [facility] 4Admin Note: per pt historical data rcvd here Medications amLODIPine 5 mg oral tablet 5 mg, 1, tablet, By Mouth, Daily, # 90 tablet, Refills 3, Tot. Refills 3, Maintenance, 10/30/21 11:26:00 EDT, Route to [facility] Electron[facility], Partial fill upon patient request [...] tablet, 1 Refills, Maintenance, 11/08/21 19:06:00 EDT, [facility], 156, cm, 10/30/21 [...] Team Personnel Name: Bebo Garcia MD Address: [address] [place] [address] Adult [place], [place] [address]
--- OUTSIDE RECORDS SUMMARY | 2023-08-01 09:59 | XMS_ITS | Continuity of Care Document ---
Author Organization [facility] Address [address] [facility] [place] [address]- Care Team Providers Care Offal Icer Poultry Name Role Phone Radha ACEVES, Bebo Reed Primary Care Physician [phone] Encounter 03/15/23 - 03/22/23 [facility] [address], [address] [place] [address]- Attending Physician: Bebo Garcia MD Admitting Physician: Bebo Garcia MD Referring Physician: Bebo Garcia MD Allergies, Adverse Reactions, Alerts Substance Reaction Severity Status Lipitor Active chlorhexidine containing compounds Active NSAIDs GI UPSET Active Immunizations Given and Recorded Vaccine Date Status Refusal Reason pneumococcal 20-valent conjugate vaccine 11/02/22 Given [id number] bivalent booster vax 12/16/21 Recorded influenza virus [...] toxoids (Td) 05/22/97 Given 1Result Comment: [11/05/2016] [facility] [place] [facility] 2Result Comment: [03/09/2016] [facility] 3Location History: [facility] 4Admin Note: per pt historical data rcvd here Medications amLODIPine 5 mg oral tablet 5 mg, 1, tablet, By Mouth, Daily, # 90 tablet, Refills 3, Tot. Refills 3, Maintenance, 08/27/22 7:39:00 EDT, [facility] to [facility], Partial fill upon patient request [...] 0 Refills, Maintenance, 11/02/22 12:13:00 EDT, Cream, [id number], Partial fill upon patient request if [...] tablet, 3 Refills, Maintenance, 08/27/22 7:39:00 EDT, [facility], 156, cm, 08/04/22 9:08:00 EDT, Height, [...] Exam Date Time Procedure Performing Provider Status 03/15/23 10:30 AM MM Digital Mammo Screening Beena Ybarra; Auth (Verified) Notes: (MM Digital Mammo Screening) Reason For Exam: Z12.31 SCREENING RESULT: MM Digital Mammo Screening PROCEDURE: MM Digital Mammo Screening INDICATION: Screening for breast cancer. COMPARISON: Multiple priors, most recent 03/12/2022 TECHNIQUE: Full-field digital CC and MLO 3D tomosynthesis images of both breasts were acquired. Computer-aided detection (CAD) was utilized in the interpretation of this study. DENSITY: The breast tissue is heterogeneously dense, which may obscure masses. FINDINGS: No suspicious masses, suspicious microcalcifications, or areas of architectural distortion are seen in either breast to suggest malignancy. IMPRESSION: No mammographic evidence of malignancy. RECOMMENDATION: Annual mammographic screening BI-RADS: 1 (Negative) Lay letter mailed to patient WSN: [id number] Ordering Physician: Chidi Braxton Dictated By: Arturo Gao MD Dictated Date/Time: 03/15/23 11:42 am Reviewed By: Arturo Gao MD Signed By: Arturo Gao MD Signed Date/Time: 03/15/23 11:42 am Transcribed By: [facility] Date/Time: 03/15/23 11:39 am Birads: Social History Social History Type Response Smoking Status Former smoker entered on: 01/17/13 Sex Patient Care team information Care Team Personnel Name: Bebo Garcia MD Position: [facility] Physician - Primary Care Member Role: PCP Address: Address: [address] [place] [id number]- Name: Kelsy Cyr RN Position: S RN Member Role: Primary Care Nurse Name: Beena Mack [place] Position: [facility] Onco RN Member Role: Primary Care Nurse Care Team Related Persons Name: RACHEL MANCIA Address: home [address] [place] [id number]
--- OUTSIDE RECORDS SUMMARY | 2023-08-01 10:00 | XMS_ITS | Continuity of Care Document ---
Author Organization [facility] Karson lt Address [address] [place] [address]- Care Team Providers Care Manager Terminal Name Role Phone Radha ACEVES, Bebo Reed Primary Care Physician [facility](s): 07/06/22 - 08/05/22 [facility] Adult [address] [place] [address]- Allergies, Adverse Reactions, Alerts Substance Reaction Severity Status Lipitor Active chlorhexidine containing compounds Active NSAIDs GI UPSET Active Immunizations Given and Recorded Vaccine Date Status Refusal Reason [id number] bivalent booster vax 12/16/21 Recorded influenza virus [...] [03/09/2016] [facility] 3Location History: [facility] 4Admin Note: per pt historical data rcvd here Medications amLODIPine 5 mg oral tablet 5 mg, 1, tablet, By Mouth, Daily, # 90 tablet, Refills 3, Tot. Refills 3, Maintenance, 05/05/22 12:05:00 EDT, [facility] to [facility], Partial fill upon patient request [...] Personnel Name: Radha ACEVES, Bebo Reed Position: [facility] Physician - Primary Care Member Role: PCP Address: Address: [address] [place] [address]- Name: Kelsy Cyr RN Position: S RN Member Role: Primary Care Nurse Name: Beena Mack [place] Position: [facility] Onco RN Member Role: Primary Care Nurse Care Team Related Persons Name: RACHEL MANCIA Address: home [address] [place] [address]
--- OUTSIDE RECORDS SUMMARY | 2023-08-01 10:00 | XMS_ITS | Continuity of Care Document ---
Author Organization [facility] Karson lt Address [address] [place] [address]- Care Team Providers Care Promotion Specialist Name Role Phone Bebo Garcia MD Primary Care Physician [phone] [facility]): 08/04/22 - 08/11/22 [facility] Adult [address] [place] [address]- Attending Physician: Bebo Garcia MD Allergies, Adverse Reactions, Alerts Substance Reaction Severity Status Lipitor Active chlorhexidine containing compounds Active NSAIDs GI UPSET Active Immunizations Given and Recorded Vaccine Date Status Refusal Reason [id number] bivalent booster vax 12/16/21 Recorded influenza virus [...] (Td) 05/22/97 Given 1Result Comment: [11/05/2016] [facility] [place] 2Result Comment: [03/09/2016] [facility] 3[facility] 4Admin Note: per pt historical data rcvd here Medications amLODIPine 5 mg oral tablet 5 mg, 1, tablet, By Mouth, Daily, # 90 tablet, Refills 3, Tot. Refills 3, Maintenance, 05/05/22 12:05:00 EDT, Route to Pharmacy Electronically, [facility], Partial fill upon patient [...] tablet, 3 Refills, Maintenance, 05/05/22 12:05:00 EDT, [facility], [facility], cm, 05/05/22 11:57:00 EDT, Height, [...] oldest [Reference Range]: 1 Height 156 cm (08/04/22 9:08 AM) Social History Social History Type Response Smoking Status Former smoker entered on: 01/17/13 Sex Patient Care team information Care Team Personnel Name: Bebo Garcia MD Position: [facility] Physician - Primary Care Member Role: PCP Address: Address: [address] [place] [address]- Name: Kelsy Cyr RN Position: S RN Member Role: Primary Care Nurse Name: Beena Mack [place] Position: [facility] Onco RN Member Role: Primary Care Nurse Care Team Related Persons Name: RACHEL MANCIA Address: home [address] [place] [id number]
--- OUTSIDE RECORDS SUMMARY | 2023-08-01 10:00 | XMS_ITS | Continuity of Care Document ---
Author Organization [facility] Address [address] [place] [address]- Care Team Providers Care Felt Washing Machine Tender Name Role Phone Bebo Garcia MD Primary Care Physician [phone] [facility]s): 08/26/21 - 09/25/21 [facility] [address] [place] [address] Attending Physician: Yari Rivera Admitting Physician: AdmtrYari Referring Physician: Admtr, Ar8 [...] HOSPITAL [place] 2Result Comment: [03/09/2016] [facility] 3Location History: [facility] 4Admin Note: per pt historical data rcvd here Medications Lashawn By Mouth, 0 Refills, Maintenance, 07/06/16 14:19:02 Start Date: 07/06/16 Status: Ordered amLODIPine 2.5 mg oral tablet See Instructions, TAKE THREE TABLETS BY MOUTH EVERY DAY, # 90 tablet, 11 Refills, Maintenance, 11/10/20 11:12:00 EDT, [facility], 157.2, cm, 10/29/20 10:40:00 EDT, [...]
--- OUTSIDE RECORDS SUMMARY | 2023-08-01 10:00 | XMS_ITS | Continuity of Care Document ---
Author Organization [facility] Address [address] [place], [place] [address]m[address], [address] [place] [address]- Care Team Providers Care Supervisor [employer]ty [employer] Name Role Phone Bebo Garcia MD Primary Care Physician [phone] [facility] Date[facility]s): 12/02/21 - 01/01/22 [facility] [address] [place] [address] Drive, [address] [place] [address]- Allergies, Adverse Reactions, Alerts Substance Reaction Severity [...] toxoids (Td) 05/22/97 Given 1Result Comment: [11/05/2016] [facility] [place] 2Result Comment: [03/09/2016] [facility] 3Location History: [facility] 4Admin Note: per pt historical data rcvd here Medications amLODIPine 5 mg oral tablet 5 mg, 1, tablet, By Mouth, Daily, # 90 tablet, Refills 3, Tot. Refills 3, Maintenance, 10/30/21 11:26:00 EDT, Route to Pharmacy Electronically, [facility], Partial fill upon patient [...] tablet, 1 Refills, Maintenance, 11/08/21 19:06:00 EDT, [facility], 156, cm, [...] Team Personnel Name: Bebo Garcia MD Position: [facility] Primary Care Physician Member Role: PCP Address: Address: [address] [place] [address]- Name: Kelsy Cyr RN Position: S RN Member Role: Primary Care Nurse Name: Beena Mack [place] Position: [facility] Onco RN Member Role: Primary Care Nurse Care Team Related Persons Name: RACHEL MANCIA Address: home [address] [place] [id number]
--- OUTSIDE RECORDS SUMMARY | 2023-08-01 10:00 | XMS_ITS | Continuity of Care Document ---
Author Organization [facility] Chris Baird Karson lt Address [address] [place] [address]- Care Team Providers Care Irrigation Manager Name Role Phone Bebo Garcia MD Primary Care Physician [phone] [facility](s): 09/24/21 - 10/24/21 [facility] Chris Baird Adult [address] [place] [address]- Allergies, Adverse Reactions, Alerts Substance Reaction Severity [...] 3 Refills, Maintenance, 12/12/20 16:02:00 EDT, Tablet, [facility], Partial fill upon patient request [...] Personnel Name: Radha ACEVES, Bebo Reed Address: [address] [place] [id number]
--- OUTSIDE RECORDS SUMMARY | 2023-08-01 10:00 | XMS_ITS | Continuity of Care Document ---
Author Organization [facility] Oli Karson lt Address [address] [place] [address]- Care Team Providers Care Product Marketing Manager Name Role Phone Radha ACEVES, Bebo Reed Primary Care Physician [phone] [facility]counter [facility] Date(s): 08/04/21 - 09/03/21 [facility] Adult [address] [place] [address]- Allergies, Adverse Reactions, Alerts Substance Reaction Severity [...] (Td) 05/22/97 Given 1Result Comment: [11/05/2016] [facility] [place] [facility] 2Result Comment: [03/09/2016] [facility] 3Location History: [facility] 4Admin Note: per pt historical data rcvd here Medications Lashawn By Mouth, 0 Refills, Maintenance, 07/06/16 14:19:02 Start Date: 07/06/16 Status: Ordered amLODIPine 2.5 mg oral tablet See Instructions, TAKE THREE TABLETS BY MOUTH EVERY DAY, # 90 tablet, 11 Refills, Maintenance, 11/10/20 11:12:00 EDT, [facility], 157.2, cm, 10/29/20 10:40:00 EDT, Height, [...] 3 Refills, Maintenance, 12/12/20 16:02:00 EDT, Tablet, [facility], Partial fill upon patient request [...]
--- OUTSIDE RECORDS SUMMARY | 2023-08-01 10:00 | XMS_ITS | Continuity of Care Document ---
Author Organization [facility] Chris Baird Karson lt Address [address] [place] [address]- Care Team Providers Care Porter Bath Name Role Phone Bebo Garcia MD Primary Care Physician [phone] [facility] Date(s): 11/29/19 - 12/29/19 [facility] Chris Baird Adult [address] [place] [address]- Allergies, Adverse Reactions, Alerts Substance Reaction Severity [...] 08/22/19 12:56:00 EDT, Route to Pharmacy Electronically, [facility], 157.2, cm, 04/20/19 [...] 10/19/19 12:44:00 EDT, Route to Pharmacy Electronically, [facility], 157.2, cm, 04/20/19 [...]
--- OUTSIDE RECORDS SUMMARY | 2023-08-01 10:00 | XMS_ITS | Continuity of Care Document ---
Author Organization [facility] Chris Baird Karson lt Address [address] [place] [address]- Care Team Providers Care Take Off Man Name Role Phone Bebo Garcia MD Primary Care Physician Encounter [facility] Date(s): 10/12/21 - 11/11/21 [facility] Oli Adult [address] [place] [address]- Allergies, Adverse Reactions, Alerts Substance Reaction Severity [...] toxoids (Td) 05/22/97 Given 1Result Comment: [11/05/2016] [facility] [place] [facility] 2Result Comment: [03/09/2016] [facility] 3Location History: [facility] 4Admin Note: per pt historical data rcvd here Medications amLODIPine 5 mg oral tablet 5 mg, 1, tablet, By Mouth, Daily, # 90 tablet, Refills 3, Tot. Refills 3, Maintenance, 10/30/21 11:26:00 EDT, Route to Pharm[facility] Electronically[facility], Partial fill upon patient request [...] tablet, 1 Refills, Maintenance, 11/08/21 19:06:00 EDT, [facility], 156, cm, 10/30/21 10:59:00 [...] Team Personnel Name: Bebo Garcia MD Address: [address] [place] [address] [place] [address]-
--- OUTSIDE RECORDS SUMMARY | 2023-08-01 10:00 | XMS_ITS | Continuity of Care Document ---
Author Organization [facility] Karson lt Address [address] [place] [address]- Care Team Providers Care Industrial Spraypainter Name Role Phone Radha ACEVES, Bebo Reed Primary Care Physician [facility]counter [facility] Date(s): 04/24/20 - 05/24/20 [facility] Adult [address] [place] [address]- Attending Physician: Admtr, Ar8 Admitting Physician: Admtr, [...] 02/25/20 9:21:00 EST, Route to Pharmacy Electronically, [facility], 157.2, cm, 01/11/20 [...] 10/19/19 12:44:00 EDT, Route to Pharmacy Electronically, [facility], 157.2, cm, 04/20/19 9:37:00 [...]
--- OUTSIDE RECORDS SUMMARY | 2023-08-01 10:00 | XMS_ITS | Continuity of Care Document ---
Author Organization [facility] Karson lt Address [address] [place] [address]- Care Team Providers Care Technology Program Manager Name Role Phone Bebo Garcia MD Primary Care Physician Encounter [facility] Date(s): 05/23/23 - 05/30/23 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) - 05/23/23 Attending Physician: Bebo Garcia MD Allergies, Adverse Reactions, Alerts Substance Reaction Severity Status Lipitor Active chlorhexidine containing compounds Active NSAIDs GI UPSET Active Immunizations Given and Recorded Vaccine Date Status Refusal Reason RSV vaccine preF3, recombinant 01/05/23 Recorded SARS-CoV-2(COVID-19)mRNA-LNP vac([id number]) 11/29/22 Recorded influenza virus vaccine, inactivated 11/21/22 [...] corded pneumococcal 20-valent conjugate vaccine 11/02/22 Given [id number] bivalent booster vax 08/17/22 Recorded [id number] bivalent booster vax 12/16/21 Recorded SARS-CoV-2 (COVID-19) [...] 08/27/22 7:39:00 EDT, Route to Pharmacy Electronically, [facility], Partial fill upon patient request if [...] tablet, 3 Refills, Maintenance, 08/27/22 7:39:00 EDT, [facility], 156, cm, 08/04/22 9:08:00 EDT, Height, 54.8, kg, 10/15/21 13:40:00 EDT, Dry Weight Start Date: 08/27/22 Status: Ordered gabapentin 300 mg oral capsule 300 mg, 1, capsule, By Mouth, Daily at bedtime, # 90 capsule, Refills 0, Tot. 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 Discharge Diagnosis 05/23/23 Vital Signs Most recent to oldest [Reference Range]: 1 Height 156 cm (05/23/23 10:42 AM) Weight 57.3 kg (05/23/23 10:42 AM) Oxygen Saturation [94-100 %] 97 % (05/23/23 10:42 AM) Pulse Rate [55-90 bpm] 60 bpm (05/23/23 10:42 AM) Body Mass Index [18.5-24.99 kg/m2] 23.55 kg/m2 (05/23/23 10:42 AM) Blood Pressure [90-138/55-84 mm Hg] 118/ 74mm Hg (05/23/23 10:42 AM) Mode of Delivery (Oxygen) Room air (05/23/23 10:42 AM) Blood pressure sites Arm, left (05/23/23 10:42 AM) Weight Obtained Via Standing scale (05/23/23 10:42 AM) Social History Social History Type Response Smoking Status Former smoker entered on: 01/17/13 Sex Patient Care team information Care Team Personnel Name: Bebo Garcia MD Position: [facility] Physician - Primary Care Member Role: PCP Address: Address: [address] [place] [address]- Name: Kelsy Cyr RN Position: [facility] RN Member Role: Primary Care Nurse Name: Beena Mack [place] Position: [facility] Onco RN Member Role: Primary Care Nurse Care Team Related Persons Name: RACHEL MANCIA Address: home [address] [place] [address]
--- OUTSIDE RECORDS SUMMARY | 2023-08-01 10:00 | XMS_ITS | Continuity of Care Document ---
Author Organization [facility] Address [address] [place] [address] christa, [address] [place] [address]- Care Team Providers Care Alarm Service Technician Name Role Phone Radha ACEVES, Bebo Reed Primary Care Physician [facility] Date(s): 01/11/23 - 02/10/[address], [address] [place] [address]- Attending Physician: Yari Rivera Admitting Physician: Yari Rivera Referring Physician: AdmtrYari Allergies, Adverse Reactions, Alerts Substance Reaction Severity Status Lipitor Active chlorhexidine containing compounds Active NSAIDs GI UPSET Active Immunizations Given and Recorded Vaccine Date Status Refusal Reason pneumococcal 20-valent conjugate vaccine 11/02/22 Given [id number] bivalent booster vax 12/16/21 Recorded influenza virus [...] toxoids (Td) 05/22/97 Given 1Result Comment: [11/05/2016] [facility] 2Result Comment: [03/09/2016] [facility] 3Location History: [facility] 4Admin Note: per pt historical data rcvd here Medications amLODIPine 5 mg oral tablet 5 mg, 1, tablet, By Mouth, Daily, # 90 tablet, Refills 3, Tot. Refills 3, Maintenance, 08/27/22 7:39:00 EDT, Route to Pharmacy Electronically, [facility], Partial fill upon patient request if [...] 0 Refills, Maintenance, 11/02/22 12:13:00 EDT, Cream, [facility]/pharmacy #[id number], Partial fill upon patient [...] tablet, 3 Refills, Maintenance, 08/27/22 7:39:00 EDT, [facility], 156, cm, 08/04/22 9:08:00 EDT, [...] Team Personnel Name: Bebo Garcia MD Position: S Physician - Primary Care Member Role: PCP Address: Address: [address] [place] [address]- Name: Kelsy Cyr RN Position: S RN Member Role: Primary Care Nurse Name: Beena Mack [place] Position: [facility] Onco RN Member Role: Primary Care Nurse Care Team Related Persons Name: APRYLDANNYLucien RACHEL Address: [address] [address]
--- OUTSIDE RECORDS SUMMARY | 2023-08-01 10:00 | XMS_ITS | Continuity of Care Document ---
Author Organization [facility] Chris Baird Karson lt Address [address] [place] [address]- Care Team Providers Care Linux System Engineer Name Role Phone Radha ACEVES, Bebo Reed Primary Care Physician [phone] Encounter [facility] Date(s): 03/08/23 - 03/15/23 [facility] Oli Adult [address] [place] [address]- Attending Physician: Olga Horn NP Allergies, Adverse Reactions, Alerts Substance Reaction Severity Status Lipitor Active chlorhexidine containing compounds Active NSAIDs GI UPSET Active Immunizations Given and Recorded Vaccine Date Status Refusal Reason pneumococcal 20-valent conjugate vaccine 11/02/22 Given [id number] bivalent booster vax 12/16/21 Recorded influenza virus [...] 05/22/97 Given 1Result Comment: [11/05/2016] [facility] 2Result Comment: [03/09/2016] [facility] 3Location History: [facility] 4Admin Note: per pt historical data rcvd here Medications amLODIPine 5 mg oral tablet 5 mg, 1, tablet, By Mouth, Daily, # 90 tablet, Refills 3, Tot. Refills 3, Maintenance, 08/27/22 7:39:00 EDT, Route to Pharmacy Electronically, [facility], Partial fill upon patient request [...] Maintenance, 11/02/22 12:13:00 EDT, Cream, [facility]/pharmacy #[id number], Partial fill upon patient request [...] tablet, 3 Refills, Maintenance, 08/27/22 7:39:00 EDT, [facility], 156, cm, 08/04/22 9:08:00 EDT, [...] oldest [Reference Range]: 1 Height 156 cm (03/08/23 10:33 AM) Weight 58.2 kg (03/08/23 10:33 AM) Oxygen Saturation [94-100 %] 98 % (03/08/23 10:33 AM) Pulse Rate [55-90 bpm] 66 bpm (03/08/23 10:33 AM) Body Mass Index [18.5-24.99 kg/m2] 23.92 kg/m2 (03/08/23 10:33 AM) Blood Pressure [90-138/55-84 mm Hg] 122/ 72mm Hg (03/08/23 10:33 AM) Respiratory Rate [16-30 br/min] 20 br/mi n (03/08/23 10:33 AM) Temperature [96.8-100.4 DegF] 97.8 DegF (03/08/23 10:33 AM) Mode of Delivery (Oxygen) Room air (03/08/23 10:33 AM) Blood pressure sites Arm, left (03/08/23 10:33 AM) Temperature Route Oral (03/08/23 10:33 AM) Weight Obtained Via Standing scale (03/08/23 10:33 AM) Social History Social History Type Response Smoking Status Former smoker entered on: 01/17/13 Sex Note * Nichol Ling: PERFORM, SIGN, VERIFY Event Display: Patient Education/Instruction Authored Date: [facility] *BMP So Oli Daigle Clinical Summary Name KASSIE MANCIA Age 72 Years 1950 PCP Radha ACEVES, Bebo Reed PCP Visit Date 03/08/2023 10:16:00 Additional Instructions: Scheduled Appointments?? Future Appointments ?[facility] ?[address]??[place],??[place],??[address] ?Phone:??[phone]?Fax:??-- ?Appt. Date:??03/15/2023?10:15 AM ?Scheduled Provider:??[facility] ?*[facility] ?[address],??[place],??[address] ?Phone:??--?Fax:??-- ?Appt. Date:??05/23/2023?10:50 AM ?Scheduled Provider:??Radha ACEVES, Bebo Reed Follow-Up Instructions ?? Diagnosis Other speech disturbances Medications: Please continue your medications until treatment is completed or stopped by your provider. Discuss any questions related to medications with your provider. Medications to Continue with No Changes These medications were not printed or sent to your pharmacy Amlodipine (amLODIPine 5 mg oral tablet) 1 tab(s) Oral Daily. Refills: 3. Next Dose: Aspirin (aspirin 81 mg oral tablet) 1 tab(s) Oral Daily. Next Dose: Betamethasone-Clotrimazole Topical (betamethasone-clotrimazole 0.05%-1% topical cream) 1 heber Topically twice a day. Refills: 0. Next Dose: Calcium And Vitamin D Combination (Calcium 600+D oral tablet) 1 tab(s) Oral Daily. Next Dose: Ezetimibe (ezetimibe 10 mg oral tablet) 1 tab(s) Oral Daily. Refills: 3. Next Dose: Multivitamin 1 tab(s) Oral Daily. Next Dose: Allergy Info:?? NSAIDs; chlorhexidine containing compounds; Lipitor Medications Given This Visit Future Orders ?Protein Electrophoresis? Order Date:03/08/23?- Complete on or after?03/08/23 ?Comprehensive Metabolic Panel? Order Date:03/08/23?- Complete on or after?03/08/23 ?LEIGHTON Screen? Order Date:03/08/23?- Complete on or after?03/08/23 ?CBC w/ Differential? Order Date:03/08/23?- Complete on or after?03/08/23 ?Syphilis Monitor (For Prev Pos Pts Only)? Order Date:03/08/23?- Complete on or after?03/08/23 ?Lyme Disease Ab Screen? Order Date:03/08/23?- Complete on or after?03/08/23 ?Folate Level? Order Date:03/08/23?- Complete on or after?03/08/23 ?Vitamin B12 Level? Order Date:03/08/23?- Complete on or after?03/08/23 ?Sedimentation Rate? Order Date:03/08/23?- Complete on or after?03/08/23 ?Thyroid Panel? Order Date:03/08/23?- Complete on or after?03/08/23 ?HDL Cholesterol? Order Date:03/08/23?- Complete on or after?03/08/23 ?Cholesterol Total? Order Date:03/08/23?- Complete on or after?03/08/23 ?Direct LDL? Order Date:03/08/23?- Complete on or after?03/08/23 Vital Signs Height 156 cm Weight 58.2 kg BMI 23.92 kg/m2 Blood Pressure 122 mm Hg/72 mm Hg Temperature 97.8 DegF Pulse Rate 66 bpm Respiratory Rate 20 br/min 02 Sat Mode of Delivery 98 %/Room air You can now view a summary of your hospital visit from the comfort of your home through a free online portal called [facility] [employer]. [employer] is a website that allows you to securely view your medical information including discharge summary, medications and follow-up visits. ??You can alsosend a secure electronic message to your doctor???s office to request appointments, renew medications or just ask a question. You can enroll at [email or web address] or register during your next office visit. Disclaimer:?? The information provided is of a general nature and is intended to be used in conjunction with the recommendations and advice of your health care practitioner. ??Every effort has been made to ensure that the information provided is accurate and complete at the time it is provided to you however, as your needs change, or, as new ??information becomes available, different or additional instructions may be required. If you have questions, please consult with your primary care provider or pharmacist, as appropriate. ??This information is not intended to serve as substitution for assessment and evaluation by a qualified health care provider. If you do not have a primary care provider, you may find a [facility] provider by calling [facility] [employer] Link at [phone]. [facility], in keeping with [facility] guidance, no longer requires face masks for staff, patientsor visitors in most situations. Similar to time spent indoors at other locations, there is the chance that you were exposed to respiratory viruses during your time with us (such as flu or COVID-19).? If you develop symptoms concerning for a viral respiratory infection, please seek testing (and treatment if indicated) from your medical provider or home test kit. For information about the plan of care including goals and instructions for your diagnosis, please see the patient education orders section of this document. Patient Education Materials?? The content of this educational material or handout may have been modified, supplemented, or adapted from its original content and format to support your individualized medical care. Patient Care team information Care Team Personnel Name: Radha ACEVES, Bebo Reed Position: S Physician - Primary Care Member Role: PCP Address: Address: [address] [place] [address]- Name: Kelsy Cyr RN Position: S RN Member Role: Primary Care Nurse Name: Beena Mack [place] Position: [facility] Onco RN Member Role: Primary Care Nurse Care Team Related Persons Name: RACHEL MANCIA Address: [address] [address]
--- OUTSIDE RECORDS SUMMARY | 2023-08-01 10:00 | XMS_ITS | Continuity of Care Document ---
Author Organization [facility] Address [address] [place] [address] christa, [address] [place] [address]- Care Team Providers Care Web Content Manager Name Role Phone Radha ACEVES, Bebo Reed Primary Care Physician [phone] [facility]counter [facility] Date(s): 08/28/21 - 09/27/[address], [address] [place], [place] [address] Allergies, Adverse Reactions, Alerts Substance [...] toxoids (Td) 05/22/97 Given 1Result Comment: [11/05/2016] [facility] 2Result Comment: [03/09/2016] [facility] 3Location History: [facility] 4Admin Note: per pt historical data rcvd here Medications Lashawn By Mouth, 0 Refills, Maintenance, 07/06/16 14:19:02 Start Date: 07/06/16 Status: Ordered amLODIPine 2.5 mg oral tablet See Instructions, TAKE THREE TABLETS BY MOUTH EVERY DAY, # 90 tablet, 11 Refills, Maintenance, 11/10/20 11:12:00 EDT, [facility], 157.2, cm, 10/29/20 10:40:00 EDT, Height, [...] Refills, Maintenance, 12/12/20 16:02:00 EDT, Tablet, [facility], Partial fill upon patient request if [...]
--- OUTSIDE RECORDS SUMMARY | 2023-08-01 10:01 | XMS_ITS | Continuity of Care Document ---
Author Organization [facility] Chris Baird Karson lt Address [address] [place] [address]- Care Team Providers Care Carcass Trimmer Name Role Phone Bebo Garcia MD Primary Care Physician [facility] Date(s): 09/27/22 - 10/27/22 [facility] Chris Baird Adult [address] [place] [address]- Allergies, Adverse Reactions, Alerts Substance Reaction Severity Status Lipitor Active NSAIDs GI UPSET Active chlorhexidine containing compounds Active Immunizations Given and Recorded Vaccine Date Status Refusal Reason [id number] bivalent booster vax 12/16/21 Recorded influenza virus [...] [facility] [place] 2Result Comment: [03/09/2016] [facility] 3Location History[facility] 4Admin Note: per pt historical data rcvd here Medications amLODIPine 5 mg oral tablet 5 mg, 1, tablet, By Mouth, Daily, # 90 tablet, Refills 3, Tot. Refills 3, Maintenance, 08/27/22 7:39:00 EDT, [facility] [place] [facility], Partial fill upon patient request if the prescription is for a schedule I... Start Date: 08/27/22 Status: Ordered amoxicillin 500 mg oral tablet 1 tablet = 500 mg, By Mouth, 3 times a day, for 10 days, # 30 tablet, 0 Refills, Acute 11/05/22 10:33:00 EDT, 10/26/22 10:33:00 EDT, Tablet, [facility]/pharmacy #[id number], Partial fill upon patient request if the prescription is for a schedule II opioid drug., 1... Start Date: 10/26/22 Stop Date: 11/05/22 Status: Ordered aspirin 81 mg oral tablet [...] 3 Refills, Maintenance, 08/27/22 7:39:00 EDT, [facility], 156, cm, 08/04/22 9:08:00 EDT, Height, [...] Team Personnel Name: Bebo Garcia MD Position: [facility] Physician - Primary Care Member Role: PCP Address: Address: [address] [place] [address]- [place] Name: Kelsy Cyr RN Position: S RN Member Role: Primary Care Nurse Name: Beena Mack [place] Position: [facility] Onco RN Member Role: Primary Care Nurse Care Team Related Persons Name: APRYLDANNYRACHEL Mcgraw Address: [address] [address]
--- OUTSIDE RECORDS SUMMARY | 2023-08-01 10:01 | XMS_ITS | Continuity of Care Document ---
Author Organization [facility] Karson lt Address [address] [place] [address]- Care Team Providers Care Air Conditioning Equipment Mechanic Name Role Phone Radha ACEVES, Bebo Reed Primary Care Physician [phone] [facility]s): 03/03/22 - 04/02/22 [facility] Adult [address] [place] [address]- Allergies, Adverse Reactions, Alerts Substance Reaction Severity [...] 11/10/15 Nima rded influenza virus vaccine, inactivated 11/5/15 Nima rded influenza virus vaccine, inactivated 3 [...] (Td) 05/22/97 Given 1Result Comment: [11/05/2016] [facility] [place] [facility] 2Result Comment: [03/09/2016] [facility] 3[facility] 4Admin Note: per pt historical data rcvd here Medications amLODIPine 5 mg oral tablet 5 mg, 1, tablet, By Mouth, Daily, # 90 tablet, Refills 3, Tot. Refills 3, Maintenance, 10/30/21 11:26:00 EDT, Route to Pharmacy Electronically, [facility], Partial fill upon [...] tablet, 1 Refills, Maintenance, 11/08/21 19:06:00 EDT, [facility], 156, cm, 10/30/21 [...] Team Personnel Name: Bebo Garcia MD Position: [facility] Primary Care Physician Member Role: PCP Address: Address: [address] [place] [address]- Name: Kelsy Cyr RN Position: S RN Member Role: Primary Care Nurse Name: Beena Mack [place] Position: [facility] Onco RN Member Role: Primary Care Nurse Care Team Related Persons Name: RACHEL MANCIA Address: home [address] [place] [address]
--- OUTSIDE RECORDS SUMMARY | 2023-08-01 10:01 | XMS_ITS | Continuity of Care Document ---
Author Organization [facility] Chris Baird Karson lt Address [address] [place] [address]- Care Team Providers Care Coil Winder Hand Name Role Phone Bebo Garcia MD Primary Care Physician [phone] [facility]): 10/13[facility]21 - 11/12/21 [facility] Chris Baird Adult [address] [place] [address]- Allergies, Adverse Reactions, Alerts Substance Reaction Severity [...] toxoids (Td) 05/22/97 Given 1Result Comment: [11/05/2016] [facility] [place] 2Result Comment: [03/09/2016] [facility] 3Location History: [facility] 4Admin Note: per pt historical data rcvd here Medications amLODIPine 5 mg oral tablet 5 mg, 1, tablet, By Mouth, Daily, # 90 tablet, Refills 3, Tot. Refills 3, Maintenance, 10/30/21 11:26:00 EDT, Route to [facility]ically, [facility], Partial fill upon patient [...] Maintenance, 11/08/21 19:06:00 EDT, [facility], 156, cm, 10/30/21 [...] Team Personnel Name: Bebo Garcia MD Address: [address] [place] [address] [place], [place] [address]
--- OUTSIDE RECORDS SUMMARY | 2023-08-01 10:01 | XMS_ITS | Continuity of Care Document ---
Author Organization [facility] Chris Baird Karson lt Address [address] [place] [address]- Care Team Providers Care Sales Development Coordinator Name Role Phone Bebo Garcia MD Primary Care Physician [facility]): 09/28[facility]21 - 10/28/21 [facility] Chris Baird Adult [address] [place] [address]- Allergies, Adverse Reactions, Alerts Substance Reaction Severity [...] 3 Refills, Maintenance, 12/12/20 16:02:00 EDT, Tablet, [facility], [...] Personnel Name: Radha ACEVES, Bebo Reed Address: [address] [place] [id number]
--- OUTSIDE RECORDS SUMMARY | 2023-08-01 10:01 | XMS_ITS | Continuity of Care Document ---
Author Organization [facility] Address [address] [place] [address] Johnna [address], [address] [place] [address]- Care Team Providers Care Deli Cook Name Role Phone Radha ACEVES, Bebo Reed Primary Care Physician [facility] Date(s): 08/31/21 - 09/30/[address], [address] [place], [place] [address] Allergies, Adverse Reactions, Alerts Substance Reaction Severity [...] toxoids (Td) 05/22/97 Given 1Result Comment: [11/05/2016] [facility] [place] 2Result Comment: [03/09/2016] [facility] 3Location History: [facility] 4Admin Note: per pt historical data rcvd here Medications Lashawn By Mouth, 0 Refills, Maintenance, 07/06/16 14:19:02 Start Date: 07/06/16 Status: Ordered amLODIPine 2.5 mg oral tablet See Instructions, TAKE THREE TABLETS BY MOUTH EVERY DAY, # 90 tablet, 11 Refills, Maintenance, 11/10/20 11:12:00 EDT, [facility], 157.2, cm, 10/29/20 10:40:00 [...] 3 Refills, Maintenance, 12/12/20 16:02:00 EDT, Tablet, [facility], Partial fill upon patient [...]
--- OUTSIDE RECORDS SUMMARY | 2023-08-01 10:01 | XMS_ITS | Continuity of Care Document ---
Author Organization [facility] Oli Karson lt Address [address] [place] [address]- Care Team Providers Care Vacuum Repairer Name Role Phone Radha ACEVES, Bebo Reed Primary Care Physician [facility] Date(s): 04/26/22 - 05/26/22 [facility] Adult [address] [place] [address]- Allergies, Adverse Reactions, Alerts Substance Reaction Severity Status Lipitor Active chlorhexidine containing compounds Active NSAIDs GI UPSET Active Immunizations Given and Recorded Vaccine Date Status Refusal Reason [id number] bivalent booster vax 12/16/21 Recorded influenza virus [...] [place] [facility] 2Result Comment: [03/09/2016] [facility] 4Admin Note: per pt historical data rcvd here Medications amLODIPine 5 mg oral tablet 5 mg, 1, tablet, By Mouth, Daily, # 90 tablet, Refills 3, Tot. Refills 3, Maintenance, 05/05/22 12:05:00 EDT, Route to Pharmacy Electronically, [facility], Partial fill upon patient [...] tablet, 3 Refills, Maintenance, 05/05/22 12:05:00 EDT, [facility], 156, cm, 05/05/22 11:57:00 EDT, [...] Personnel Name: Radha ACEVES, Bebo Reed Position: [facility] Primary Care Physician Member Role: PCP Address: Address: [address] [place] [address]- Name: Kelsy Cyr RN Position: S RN Member Role: Primary Care Nurse Name: Beena Mack [place] Position: [facility] Onco RN Member Role: Primary Care Nurse Care Team Related Persons Name: APRYLDANNYRACHEL Mcgraw Address: home [address] [place] [address]
--- OUTSIDE RECORDS SUMMARY | 2023-08-01 10:01 | XMS_ITS | Continuity of Care Document ---
Author Organization [facility] Chris Baird Karson lt Address [address] [place] [address]- Care Team Providers Care Gm Name Role Phone Bebo Garcia MD Primary Care Physician [phone] [facility]counter [facility] Date[facility]s): 10/30/21 - 11/06/21 [facility] Chris Baird Adult [address] [place] [address]- Attending Physician: Bebo Garcia MD Allergies, Adverse [...] 05/22/97 Given 1Result Comment: [11/05/2016] [facility] [place] [facility] 2Result Comment: [03/09/2016] [facility] 3[facility] 4Admin Note: per pt historical data rcvd here Medications amLODIPine 5 mg oral tablet 5 mg, 1, tablet, By Mouth, Daily, # 90 tablet, Refills 3, Tot. Refills 3, Maintenance, 10/30/21 11:26:00 EDT, Route to Pharmacy Electronically, [facility], Partial fill upon patient [...] 14:52:57 Start Date: 10/23/15 Status: Ordered Multivitamin 1 tablet, By Mouth, Daily, 0 Refills, Maintenance, 10/23/15 14:53:04 EDT Start Date: 10/23/15 Status: Ordered Zetia 10 mg oral tablet 1 tablet = 10 mg, By Mouth, Daily, # 90 tablet, 3 Refills, Maintenance, 12/12/20 16:02:00 EDT, Tablet, [facility], Partial fill upon [...] oldest [Reference Range]: 1 Height 156 cm (10/30/21 10:59 AM) Weight 56.1 kg (10/30/21 10:59 AM) Oxygen Saturation [94-100 %] 97 % (10/30/21 10:59 AM) Pulse Rate [55-90 bpm] 74 bpm (10/30/21 10:59 AM) Body Mass Index [18.5-24.99] 23.05 (10/30/21 10:59 AM) Blood Pressure [90-138/55-84 mm Hg] 135/ 57mm Hg (10/30/21 10:59 AM) Mode of Delivery (Oxygen) Room air (10/30/21 10:59 AM) Blood pressure sites Arm, left (10/30/21 10:59 AM) Weight Obtained Via Standing scale (10/30/21 10:59 AM) Social History Social History Type Response Smoking Status Former smoker entered on: 01/17/13 Sex Care Team Personnel Name: Bebo Garcia MD Address: [address] [place] [address] Adult [facility] [address]-
--- OUTSIDE RECORDS SUMMARY | 2023-08-01 10:01 | XMS_ITS | Continuity of Care Document ---
Author Organization [facility] Chris Baird Karson lt Address [address] [place] [address]- Care Team Providers Care Bsw Name Role Phone Bebo Garcia MD Primary Care Physician [facility] Date(s): 10/01/22 - 10/31/22 [facility] Chris Baird Adult [address] [place] [address]- Allergies, Adverse Reactions, Alerts Substance Reaction Severity Status Lipitor Active chlorhexidine containing compounds Active NSAIDs GI UPSET Active Immunizations Given and Recorded Vaccine Date Status Refusal Reason [id number] bivalent booster vax 12/16/21 Recorded influenza virus [...] toxoids (Td) 05/22/97 Given 1Result Comment: [11/05/2016] [facility] [place] 2Result Comment: [03/09/2016[facility] 4Admin Note: per pt historical data rcvd here Medications amLODIPine 5 mg oral tablet 5 mg, 1, tablet, By Mouth, Daily, # 90 tablet, Refills 3, Tot. Refills 3, Maintenance, 08/27/22 7:39:00 EDT, [facility], Partial fill upon patient request if the prescription is for a schedule I... Start Date: 08/27/22 Status: Ordered amoxicillin 500 mg oral tablet 1 tablet = 500 mg, By Mouth, 3 times a day, for 10 days, # 30 tablet, 0 Refills, Acute 11/05/22 10:33:00 EDT, 10/26/22 10:33:00 EDT, Tablet, [facility]/pharmacy #[id number], Partial fill upon patient request if the [...] Team Personnel Name: Bebo Garcia MD Position: [facility] Physician - Primary Care Member Role: PCP Address: Address: [address] [place] [address]- [place] Name: Kelsy Cyr RN Position: S RN Member Role: Primary Care Nurse Name: Beena Mack [place] Position: [facility] Onco RN Member Role: Primary Care Nurse Care Team Related Persons Name: APRYLDANNYRACHEL Mcgraw Address: [address] [address]
--- OUTSIDE RECORDS SUMMARY | 2023-08-01 10:01 | XMS_ITS | Continuity of Care Document ---
Author Organization [facility] Oli Karson lt Address [address] [place] [address]- Care Team Providers Care Shade Maker Name Role Phone Radha ACEVES, Bebo Reed Primary Care Physician [facility] Date(s): 12/15/21 - 01/14/22 [facility] [place] Adult [address] [place] [address]- Allergies, Adverse Reactions, Alerts Substance Reaction Severity [...] toxoids (Td) 05/22/97 Given 1Result Comment: [11/05/2016] [facility] [place] 2Result Comment: [03/09/2016] [facility] 3[facility] 4Admin Note: per pt historical data rcvd here Medications amLODIPine 5 mg oral tablet 5 mg, 1, tablet, By Mouth, Daily, # 90 tablet, Refills 3, Tot. Refills 3, Maintenance, 10/30/21 11:26:00 EDT, [facility], Partial fill upon patient [...] tablet, 1 Refills, Maintenance, 11/08/21 19:06:00 EDT, [facility], 156, cm, 10/30/21 10:59:00 [...] Personnel Name: Radha ACEVES, Bebo Reed Position: [facility] Primary Care Physician Member Role: PCP Address: Address: [address] [place] [address]- Name: Kelsy Cyr RN Position: S RN Member Role: Primary Care Nurse Name: Beena Mack [place] Position: [facility] Onco RN Member Role: Primary Care Nurse Care Team Related Persons Name: RACHEL MANCIA Address: home [address] [place] [address]
--- OUTSIDE RECORDS SUMMARY | 2023-08-01 10:02 | XMS_ITS | Continuity of Care Document ---
Author Organization [facility] Address [address] [place] [address]- Care Team Providers Care Supervisor Finishing Department Name Role Phone Radha ACEVES, Bebo Reed Primary Care Physician Encounter [facility] Date(s): 10/10/21 - 10/11/[address] [address]- Encounter Diagnosis Chest pain(Final) - 10/10/21 Discharge Disposition: A-D/C Home Attending Physician: Dario Harmon MD Admitting Physician: Malik Baumann MD Referring Physician: Not on Staff, Referring MD Allergies, Adverse Reactions, Alerts Substance Reaction [...] amLODIPine 5 mg oral tablet 5 mg, Tablet, By Mouth, 10/11/21 9:00:00 EDT Start Date: 10/11/21 Stop Date: 10/11/21 Status: Completed aspirin 81 mg oral tablet [...] 3 Refills, Maintenance, 12/12/20 16:02:00 EDT, Tablet, [facility], Partial [...] fosamax and recheck bone density 07/2012 Results Orders for Microbiology Reports Name Date Blood Culture 10/10/21 Blood Culture #2 10/10/21 Microbiology Reports TEST:Blood Culture STATUS:Unauthenticated BODY SITE: SOURCE:Blood COLLECTED DATE/TIME:10/10/21 12:41 PM Blood Culture SPECIMEN DESCRIPTION : BLOOD LTHD SPECIAL REQUESTS : NONE CULTURE : NO GROWTH AFTER 24 HOURS REPORT STATUS : PRELIMINARY REPORT TEST:Blood Culture, Second Order STATUS:Unauthenticated BODY SITE: SOURCE:Blood COLLECTED DATE/TIME:10/10/21 12:41 PM Blood Culture, Second Order SPECIMEN DESCRIPTION : BLOOD RT HD SPECIAL REQUESTS : NONE CULTURE : NO GROWTH AFTER 24 HOURS REPORT STATUS : PRELIMINARY REPORT Radiology Reports * Exam Date Time Procedure Performing Provider Status 10/10/21 10:40 AM Chest 2 Views Frontal and Lat Vamsi , Dorie; Auth (Verified) Notes: (Chest 2 Views Frontal and Lat) Reason For Exam: Pleuritic Pain RESULT: Chest 2 Views Frontal and Lat Chest 2 Views Frontal and Lat Hx of Present Illness: Pt. is from home with onset of CP since 9 am , across her chest to neck and epigastric area, felt dizzy. Also, recent dx of UTI and upset GI.; Reason: Pleuritic Pain; Clinical Question(s): Pneumonia COMPARISON: 12/19/2018 FINDINGS: LINES AND TUBES: None. LUNGS AND PLEURA: Clear lungs. Normal pulmonary vascularity. No pleural effusion. No pneumothorax. HEART, MEDIASTINUM AND TRESSA: Heart is normal in size. Normal upper mediastinal and hilar contour. BONES AND SOFT TISSUES: No acute abnormality. IMPRESSION: No acute abnormality. WSN: [id number] Ordering Physician: Arturo Bailey Dictated By: Ld Dean MD Dictated Date/Time: 10/10/21 10:44 a Reviewed By: Ld Dean MD Signed By: Ld Dean MD Signed Date/Time: 10/10/21 10:44 am Transcribed By: ALLISON Transcribed Date/Time: 10/10/21 10:43 am Vital Signs Most recent to oldest [Reference Range]: 1 2 3 Height 158 cm (10/11/21 3:23 PM) 158 cm (10/11/21 7:34 AM) 158 cm (10/11/21 3:34 AM) Weight 55 kg (10/11/21 1:05 AM) 55 kg (10/10/21 4:50 PM) 55 kg (10/10/21 2:06 PM) Oxygen Saturation [94-100 %] 96 % (10/11/21 3:23 PM) 97 % (10/11/21 7:34 AM) 98 % (10/11/21 3:34 AM) Pulse Rate [55-90 bpm] 66 bpm (10/11/21 3:23 PM) 60 bpm (10/11/21 7:34 AM) 55 bpm (10/11/21 3:34 AM) Body Mass Index [18.5-24.99] 22.03 (10/10/21 4:50 PM) 22.03 (10/10/21 2:06 PM) Blood Pressure [90-138/55-84 mm Hg] 126/58mm Hg (10/11/21 3:23 PM) 146/71mm Hg *H* (10/11/21 8:22 AM) 146/71mm Hg *H* (10/11/21 7:34 AM) Respiratory Rate [16-30 br/min] 18 br/min (10/11/21 3:23 PM) 18 br/min (10/11/21 8:36 AM) 18 br/min (10/11/21 7:34 AM) Temperature [96.8-100.4 DegF] 98.2 DegF (10/11/21 3:23 PM) 98.0 DegF (10/11/21 7:34 AM) 97.8 DegF (10/11/21 3:34 AM) Mode of Delivery (Oxygen) Room air (10/11/21 3:23 PM) Room air (10/11/21 7:34 AM) Room air (10/11/21 3:34 AM) Blood pressure sites Arm, left (10/11/21 3:23 PM) Arm, left (10/11/21 7:34 AM) Arm, left (10/11/21 3:34 AM) Temperature Route Oral (10/11/21 3:23 PM) Oral (10/11/21 7:34 AM) Oral (10/11/21 3:34 AM) Dry Weight 55 kg (10/10/21 4:50 PM) 55 kg (10/10/21 2:06 PM) Weight Obtained Via Patient/family state d (10/10/21 2:06 PM) Dry Weight Obtained Via Patient/family s tated (10/10/21 2:06 PM) Social History Social History Type Response Smoking Status Former smoker entered on: 01/17/13 Sex
--- OUTSIDE RECORDS SUMMARY | 2023-08-01 10:02 | XMS_ITS | Continuity of Care Document ---
Author Organization [facility] Address [address] [facility] [address] [place] [address]- Care Team Providers Care Companion Name Role Phone Sunshine Cruz MD Primary Care Physician Encounter 07/14/22 - 07/21/22 [facility] [address], [address] [place] [address]- Attending Physician: Sunshine Cruz MD Admitting Physician: Sunshine Cruz MD Referring Physician: Sunshine Cruz MD Allergies, Adverse Reactions, Alerts Substance Reaction Severity Status Lipitor Active chlorhexidine containing compounds Active NSAIDs GI UPSET Active Immunizations Given and Recorded Vaccine Date Status Refusal Reason [id number] bivalent booster vax 12/16/21 Recorded influenza virus [...] [facility]IL[facility] [place] 2Result Comment: [03/09/2016] [facility] 3Location History: [facility] 4Admin Note: per pt historical data rcvd here Medications amLODIPine 5 mg oral tablet 5 mg, 1, tablet, By Mouth, Daily, # 90 tablet, Refills 3, Tot. Refills 3, Maintenance, 05/05/22 12:05:00 EDT, Route to Pharmacy Electronically, [facility], Partial fill upon patient request [...] tablet, 3 Refills, Maintenance, 05/05/22 12:05:00 EDT, [facility], 156, cm, 05/05/22 11:57:00 EDT, [...] Exam Date Time Procedure Performing Provider Status 07/14/22 11:12 AM Dexa Bone Density (Axial) Severo Julien; Auth (Verified) Notes: (Dexa Bone Density (Axial)) Reason For Exam: Osteopenia RESULT: DEXA BONE DENSITY (AXIAL) Bone Density Report Name: KASSIE MANCIA Age: 71 Sex: Female Ethnicity: White Date of : 1950 Indication: POSTMENOPAUSAL. Referring Provider: SUNSHINE CRUZ Study: Bone densitometry was performed. Exam Date: July 14, 2022 Accession number: [id number] Bone Density: Region BMD T-score Z-score Classification AP Spine(L1-L4) 0.830 -2.0 0.3 Osteopenia Femoral Neck (Left) 0.555 -2.6 -0.6 Osteoporosis Total Hip (Left) 0.723 -1.8 -0.1 Osteopenia World Health Organization criteria for BMD impression classify patients as: Normal (T-score at or above -1.0), Osteopenia (T-score between -1.0 and -2.5), or Osteoporosis (T-score at or below -2.5). 10-year Fracture Risk: FRAX not reported because: Some T-score at or below -2.5 Previous Exams: Region Exam Age BMD T-score BMD Change BMD Change Date g/cm2 vs Baseline vs Previous AP Spine(L1-L4) 07/14/2022 71 0.830 -2.0 -0.6% 2.4% 07/09/2020 69 0.811 -2.1 -2.9%* -3.4%* 04/26/2018 67 0.840 -1.9 0.6% -1.0% 03/11/2016 65 0.848 -1.8 1.5% 0.6% 08/10/2012 61 0.843 -1.9 0.9% 0.9% 07/23/2010 59 0.835 -1.9 Total Hip(Left) 07/14/2022 71 0.723 -1.8 -1.6% 3.6% 07/09/2020 69 0.698 -2.0 -5.0%* -7.9%* 04/26/2018 67 0.758 -1.5 3.2% -7.8%* 03/11/2016 65 0.822 -1.0 11.9%* 6.3%* 08/10/2012 61 0.774 -1.4 5.3%* 5.3%* 07/23/2010 59 0.735 -1.7 Femoral Neck(Left) 07/14/2022 71 0.555 -2.6 -6.1%* -3.1% 07/09/2020 69 0.573 -2.5 -3.1% -3.8% 04/26/2018 [...] criteria. Reported by: Arturo Gao M.D. on 07/16/2022 4:24:00 PM. Dictated By: Arturo Gao MD Dictated Date/Time: 07/16/22 4:24 pm Reviewed By: Arturo Gao MD Signed By: Arturo Gao MD Signed Date/Time: 07/16/22 4:24 pm Transcribed By: ALLISON Transcribed Date/Time: 07/16/22 4:24 pm Social History Social History Type Response Smoking Status Former smoker entered on: 01/17/13 Sex DXA Skeletal system.axial Views for bone density * [facility] , CIS S: TRANSCRIBE [facility] , CIS S: TRANSCRIBE, VERIFY Arturo Gao MD: VERIFY, VERIFY Arturo Gao MD: VERIFY Event Display: Result: Authored Date: [id number] Bone Density Report Name: KASSIE MANCIA Age: 71 Sex: Female Ethnicity: White Date of : 1950 Indication: POSTMENOPAUSAL. Referring Provider: SUNSHINE CRUZ Study: Bone densitometry was performed. Exam Date: July 14, 2022 Accession number: [id number] Bone Density: Region BMD T-score Z-score Classification AP Spine(L1-L4) 0.830 -2.0 0.3 Osteopenia Femoral Neck (Left) 0.555 -2.6 -0.6 Osteoporosis Total Hip (Left) 0.723 -1.8 -0.1 Osteopenia World Health Organization criteria for BMD impression classify patients as: Normal (T-score at or above -1.0), Osteopenia (T-score between -1.0 and -2.5), or Osteoporosis (T-score at or below -2.5). 10-year Fracture Risk: FRAX not reported because: Some T-score at or below -2.5 Previous Exams: Region Exam Age BMD T-score BMD Change BMD Change Date g/cm2 vs Baseline vs Previous AP Spine(L1-L4) 07/14/2022 71 0.830 -2.0 -0.6% 2.4% 07/09/2020 69 0.811 -2.1 -2.9%* -3.4%* 04/26/2018 67 0.840 -1.9 0.6% -1.0% 03/11/2016 65 0.848 -1.8 1.5% 0.6% 08/10/2012 61 0.843 -1.9 0.9% 0.9% 07/23/2010 59 0.835 -1.9 Total Hip(Left) 07/14/2022 71 0.723 -1.8 -1.6% 3.6% 07/09/2020 69 0.698 -2.0 -5.0%* -7.9%* 04/26/2018 67 0.758 -1.5 3.2% -7.8%* 03/11/2016 65 0.822 -1.0 11.9%* 6.3%* 08/10/2012 61 0.774 -1.4 5.3%* 5.3%* 07/23/2010 59 0.735 -1.7 Femoral Neck(Left) 07/14/2022 71 0.555 -2.6 -6.1%* -3.1% 07/09/2020 69 0.573 -2.5 -3.1% -3.8% 04/26/2018 [...] criteria. Reported by: Arturo Gao M.D. on 07/16/2022 4:24:00 PM. Dictated By: Arturo Gao MD Dictated Date/Time: 07/16/22 4:24 pm Reviewed By: Arturo Gao MD Signed By: Arturo Gao MD Signed Date/Time: 07/16/22 4:24 pm Transcribed By: ALLISON Transcribed Date/Time: 07/16/22 4:24 pm Patient Care team information Care Team Personnel Name: Sunshine Cruz MD Position: [facility] Physician - Primary Care Member Role: PCP Address: Address: [address] [place] [address]- [place] Name: Kelsy Cyr RN Position: S RN Member Role: Primary Care Nurse Name: Beena Mack [place] Position: [facility] Onco RN Member Role: Primary Care Nurse Care Team Related Persons Name: RACHEL MANCIA Address: home [address] [place] [address]
--- OUTSIDE RECORDS SUMMARY | 2023-08-01 10:02 | XMS_ITS | Continuity of Care Document ---
Author Organization [facility] Chris Baird Karson lt Address [address] [place] [address]- Care Team Providers Care Diagnostic Technician Name Role Phone Radha ACEVES, Bebo Reed Primary Care Physician [facility]s): 12/29/21 - 01/28/22 [facility] Chris Baird Adult [address] [place] [address]- Allergies, Adverse Reactions, Alerts Substance Reaction Severity [...] toxoids (Td) 05/22/97 Given 1Result Comment: [11/05/2016] [facility] [place] 2Result Comment: [03/09/2016] [facility] 3Location History: [facility] 4Admin Note: per pt historical data rcvd here Medications amLODIPine 5 mg oral tablet 5 mg, 1, tablet, By Mouth, Daily, # 90 tablet, Refills 3, Tot. Refills 3, Maintenance, 10/30/21 11:26:00 EDT, Route to Pharmacy Electronically, [facility], Partial fill upon patient request if [...] Care Physician Member Role: PCP Address: Address: [address] [place] [phone]- Name: Kelsy Cyr RN Position: S RN Member Role: Primary Care Nurse Name: Beena Mack [place] Position: S Onco RN Member Role: Primary Care Nurse Care Team Related Persons Name: RACHEL MANCIA Address: home [address] [place] [address]
--- OUTSIDE RECORDS SUMMARY | 2023-08-01 10:02 | XMS_ITS | Continuity of Care Document ---
Author Organization [facility] [place] Address [address] [place] [address]- Care Team Providers Care Tube Sizer And Cutter Operator Name Role Phone Bebo Garcia MD Primary Care Physician Encounter [facility] Date(s): 10/21/22 - 11/20/22 [facility] [address] [place], [place] [address] Allergies, Adverse Reactions, Alerts Substance Reaction Severity Status Lipitor Active chlorhexidine containing compounds Active NSAIDs GI UPSET Active Immunizations Given and Recorded Vaccine Date Status Refusal Reason pneumococcal 20-valent conjugate vaccine 11/02/22 Given [id number] bivalent booster vax 12/16/21 Recorded influenza virus [...] (Td) 05/22/97 Given 1Result Comment: [11/05/2016] [facility] [place] 2Result Comment: [03/09/2016] [facility] 3Location History: [facility] 4Admin Note: per pt historical data rcvd here Medications amLODIPine 5 mg oral tablet 5 mg, 1, tablet, By Mouth, Daily, # 90 tablet, Refills 3, Tot. Refills 3, Maintenance, 08/27/22 7:39:00 EDT, [facility], Partial fill upon patient request [...] 0 Refills, Maintenance, 11/02/22 12:13:00 EDT, Cream, [facility]/pharmacy #[id number], Partial fill upon patient request if the [...] tablet, 3 Refills, Maintenance, 08/27/22 7:39:00 EDT, [facility], 156, cm, 08/04/22 9:08:00 EDT, [...] Name: Bebo Garcia MD Position: [facility] Physician - Primary Care Member Role: PCP Address: Address: [address] [place] [address]- [place] Name: Kelsy Cyr RN Position: S RN Member Role: Primary Care Nurse Name: Beena Mack [place] Position: [facility] Onco RN Member Role: Primary Care Nurse Care Team Related Persons Name: RACHEL MANCIA Address: home [address] [place] [address]
--- OUTSIDE RECORDS SUMMARY | 2023-08-01 10:02 | XMS_ITS | Continuity of Care Document ---
Author Organization [facility] Chris Baird Karson lt Address [address] [place] [address]- Care Team Providers Care Recreation Assistant Name Role Phone Bebo Garcia MD Primary Care Physician [phone] [facility]): 12/07/22 - 01/06/23 [facility] Chris Baird Adult [address] [place] [address]- Allergies, Adverse Reactions, Alerts Substance Reaction Severity Status Lipitor Active chlorhexidine containing compounds Active NSAIDs GI UPSET Active Immunizations Given and Recorded Vaccine Date Status Refusal Reason pneumococcal 20-valent conjugate vaccine 11/02/22 Given [id number] bivalent booster vax 12/16/21 Recorded influenza virus [...] toxoids (Td) 05/22/97 Given 1Result Comment: [11/05/2016] [facility] [place] 2Result Comment: [03/09/2016] [facility] 4Admin Note: per pt historical data rcvd here Medications amLODIPine 5 mg oral tablet 5 mg, 1, tablet, By Mouth, Daily, # 90 tablet, Refills 3, Tot. Refills 3, Maintenance, 08/27/22 7:39:00 EDT, [facility], Partial fill upon patient [...] 0 Refills, Maintenance, 11/02/22 12:13:00 EDT, Cream, [facility]/pharmacy #[id number], Partial fill upon patient request if the [...] tablet, 3 Refills, Maintenance, 08/27/22 7:39:00 EDT, [facility], 156, cm, 08/04/22 9:08:00 EDT, [...] Team Personnel Name: Bebo Garcia MD Position: [facility] Physician - Primary Care Member Role: PCP Address: Address: [address] [place] [phone]- Name: Kelsy Cyr RN Position: [facility] RN Member Role: Primary Care Nurse Name: Beena Mack [place] Position: [facility] Onco RN Member Role: Primary Care Nurse Care Team Related Persons Name: RACHEL MANCIA Address: [address] [place] [address]
--- OUTSIDE RECORDS SUMMARY | 2023-08-01 10:02 | XMS_ITS | Continuity of Care Document ---
Author Organization [facility] Karson lt Address [address] [place] [address]- Care Team Providers Care Engineering Technology Instructor Name Role Phone Rdaha ACEVES, Bebo Reed Primary Care Physician [phone] [facility]s): 05/09/23 - 06/08/23 [facility] Adult [address] [place] [address]- Allergies, Adverse Reactions, Alerts Substance Reaction Severity Status Lipitor Active chlorhexidine containing compounds Active NSAIDs GI UPSET Active Immunizations Given and Recorded Vaccine Date Status Refusal Reason RSV vaccine preF3, recombinant 01/05/23 Recorded SARS-CoV-2(COVID-19)mRNA-LNP vac(tym660) 11/29/22 Recorded influenza virus vaccine, inactivated 11/21/22 [...] corded pneumococcal 20-valent conjugate vaccine 11/02/22 Given [id number] bivalent booster vax 08/17/22 Recorded [id number] bivalent booster vax 12/16/21 Recorded SARS-CoV-2 (COVID-19) [...] toxoids (Td) 05/22/97 Given 1Result Comment: [11/05/2016] [facility] [place] 2Result Comment: [03/09/2016] [facility] 3Location History: [facility] 4Admin Note: per pt historical data [...] 08/27/22 7:39:00 EDT, Route to Pharmacy Electronically, [facility], Partial fill upon patient [...] tablet, 3 Refills, Maintenance, 08/27/22 7:39:00 EDT, [facility], 156, cm, 08/04/22 9:08:00 EDT, Height, 54.8, kg, 10/15/21 13:40:00 EDT, Dry Weight Start Date: 08/27/22 Status: Ordered gabapentin 300 mg oral capsule 300 mg, 1, capsule, By Mouth, Daily at bedtime, # 90 capsule, Refills 0, Tot. Refills 0, Maintenance, 04/25/23 12:09:00 EST, Route to Pharmacy Electronically, [facility]/pharmacy #[id number], Partial fill upon patient request if the [...] Personnel Name: Radha ACEVES, Bebo Reed Position: [facility] Physician - Primary Care Member Role: PCP Address: Address: [address] [place] [address]- Name: Kelsy Cyr RN Position: S RN Member Role: Primary Care Nurse Name: Beena Mack [place] Position: [facility] Onco RN Member Role: Primary Care Nurse Care Team Related Persons Name: RACHEL MANCIA Address: home [address] [place] [address]
--- OUTSIDE RECORDS SUMMARY | 2023-08-01 10:02 | XMS_ITS | Continuity of Care Document ---
Author Organization [facility] Oli Karson lt Address [address] [place] [address]- Care Team Providers Care Resident Intern Name Role Phone Bebo Garcia MD Primary Care Physician [facility]): 09/18/21 - 09/25/21 [facility] [place] Adult [address] [place] [address]- Attending Physician: Bebo Garcia MD Allergies, Adverse [...] toxoids (Td) 05/22/97 Given 1Result Comment: [11/05/2016] [facility] [place] [facility] 2Result Comment: [03/09/2016] [facility] 3Location History: [facility] 4Admin Note: per pt historical data rcvd here Medications Lashawn By Mouth, 0 Refills, Maintenance, 07/06/16 14:19:02 Start Date: 07/06/16 Status: Ordered amLODIPine 2.5 mg oral tablet See Instructions, TAKE THREE TABLETS BY MOUTH EVERY DAY, # 90 tablet, 11 Refills, Maintenance, 11/10/20 11:12:00 [facility], 157.2, cm, 10/29/20 10:40:00 EDT, Height, [...] oldest [Reference Range]: 1 Height 157 cm (09/18/21 1:58 PM) Weight 56.0 kg (09/18/21 1:58 PM) Oxygen Saturation [94-100 %] 98 % (09/18/21 1:58 PM) Pulse Rate [55-90 bpm] 74 bpm (09/18/21 1:58 PM) Body Mass Index [18.5-24.99] 22.72 (09/18/21 1:58 PM) Blood Pressure [90-138/55-84 mm Hg] 130/ 68mm Hg (09/18/21 1:58 PM) Mode of Delivery (Oxygen) Room air (09/18/21 1:58 PM) Blood pressure sites Arm, left (09/18/21 1:58 PM) Weight Obtained Via Standing scale (09/18/21 1:58 PM) Social History Social History Type Response Smoking Status Former smoker entered on: 01/17/13 Sex
--- OUTSIDE RECORDS SUMMARY | 2023-08-01 10:02 | XMS_ITS | Continuity of Care Document ---
Author Organization [facility] Address [address] [place] [address] christa, [address] [place] [address]- Care Team Providers Care Java Golden Gate Developer Name Role Phone Radha ACEVES, Bebo Reed Primary Care Physician [facility] Date(s): 01/11/23 - 01/18/[address], [address] [place], [place] [address] Attending Physician: Jorden Mae MD Referring Physician: Allan Harper Allergies, Adverse Reactions, Alerts Substance Reaction Severity Status Lipitor Active chlorhexidine containing compounds Active NSAIDs GI UPSET Active Immunizations Given and Recorded Vaccine Date Status Refusal Reason pneumococcal 20-valent conjugate vaccine 11/02/22 Given [id number] bivalent booster vax 12/16/21 Recorded influenza virus [...] 05/18/20 R ecorded SARS-CoV-2 (COVID-19) mRNA-1273 vaccine 2/28/21 G iven SARS-CoV-2 (COVID-19) mRNA-1273 vaccine 04/20/20 [...] toxoids (Td) 05/22/97 Given 1Result Comment: [11/05/2016] [facility] [place] [facility] 2Result Comment: [03/09/2016] [facility] 3Location History: [facility] 4Admin Note: per pt historical data rcvd here Medications amLODIPine 5 mg oral tablet 5 mg, 1, tablet, By Mouth, Daily, # 90 tablet, Refills 3, Tot. Refills 3, Maintenance, 08/27/22 7:39:00 EDT, Route to Pharmacy Electronically, [facility], Partial fill upon [...] 0 Refills, Maintenance, 11/02/22 12:13:00 EDT, Cream, [facility]/pharmacy #[id number], Partial fill upon patient request if [...] tablet, 3 Refills, Maintenance, 08/27/22 7:39:00 EDT, [facility], 156, cm, 08/04/22 9:08:00 EDT, Height, [...] Team Personnel Name: Bebo Garcia MD Position: [facility] Physician - Primary Care Member Role: PCP Address: Address: [address] [place] [address]- Name: Ger HARRIS, Kelsy Position: [facility] RN Member Role: Primary Care Nurse Name: Beena Mack [place] Position: [facility] Onco RN Member Role: Primary Care Nurse Care Team Related Persons Name: RACHEL MANCIA Address: [address] [address]
--- OUTSIDE RECORDS SUMMARY | 2023-08-01 10:02 | XMS_ITS | Continuity of Care Document ---
Author Organization [facility] Chris Baird Karson lt Address [address] [place] [address]- Care Team Providers Care Fire Hydrant Operator Name Role Phone Bebo Garcia MD Primary Care Physician Encounter [facility] Date(s): 09/29/22 - 10/29/22 [facility] Chris Baird Adult [address] [place] [address]- Allergies, Adverse Reactions, Alerts Substance Reaction Severity Status Lipitor Active NSAIDs GI UPSET Active chlorhexidine containing compounds Active Immunizations Given and Recorded Vaccine Date Status Refusal Reason [id number] bivalent booster vax 12/16/21 Recorded influenza virus [...] toxoids (Td) 05/22/97 Given 1Result Comment: [11/05/2016] [facility] [place] [facility] 2Result Comment: [03/09/2016] [facility] 3[facility] 4Admin Note: per pt historical data rcvd here Medications amLODIPine 5 mg oral tablet 5 mg, 1, tablet, By Mouth, Daily, # 90 tablet, Refills 3, Tot. Refills 3, Maintenance, 08/27/22 7:39:00 EDT, [facility], Partial fill upon patient request if the prescription is for a schedule I... Start Date: 08/27/22 Status: Ordered amoxicillin 500 mg oral tablet 1 tablet = 500 mg, By Mouth, 3 times a day, for 10 days, # 30 tablet, 0 Refills, Acute 11/05/22 10:33:00 EDT, 10/26/22 10:33:00 EDT, Tablet, [facility]/pharmacy #[id number], Partial fill upon patient request if the [...] 3 Refills, Maintenance, 08/27/22 7:39:00 EDT, [facility], 156, cm, 08/04/22 9:08:00 EDT, [...] Team Personnel Name: Bebo Garcia MD Position: [facility] Physician - Primary Care Member Role: PCP Address: Address: [address] [place] [address]- [place] Name: Kelsy Cyr RN Position: S RN Member Role: Primary Care Nurse Name: Beena Mack [place] Position: [facility] Onco RN Member Role: Primary Care Nurse Care Team Related Persons Name: APRYLDANNYRACHEL Mcgraw Address: [address] [address]
--- OUTSIDE RECORDS SUMMARY | 2023-08-01 10:02 | XMS_ITS | Continuity of Care Document ---
Author Organization [facility] Karson lt Address [address] [place] [address]- Care Team Providers Care Dietetic Aide Name Role Phone Radha ACEVES, Bebo Reed Primary Care Physician Encounter [facility] Date(s): 05/26/23 - 06/25/23 [facility] Adult [address] [place] [address]- Allergies, Adverse Reactions, Alerts Substance Reaction Severity Status Lipitor Active chlorhexidine containing compounds Active NSAIDs GI UPSET Active Immunizations Given and Recorded Vaccine Date Status Refusal Reason RSV vaccine preF3, recombinant 01/05/23 Recorded SARS-CoV-2(COVID-19)mRNA-LNP vac(sen018) 11/29/22 Recorded influenza virus vaccine, inactivated 11/21/22 [...] corded pneumococcal 20-valent conjugate vaccine 11/02/22 Given [id number] bivalent booster vax 08/17/22 Recorded [id number] bivalent booster vax 12/16/21 Recorded SARS-CoV-2 (COVID-19) [...] 05/22/97 Given 1Result Comment: [11/05/2016] [facility] [place] [facility] 2Result Comment: [03/09/2016] [facility] 3Location History: [facility] 4Admin Note: per pt historical [...] 08/27/22 7:39:00 EDT, Route to Pharmacy Electronically, [facility], Partial fill upon [...] tablet, 3 Refills, Maintenance, 08/27/22 7:39:00 EDT, [facility], 156, cm, 08/04/22 9:08:00 EDT, Height, 54.8, kg, 10/15/21 13:40:00 EDT, Dry Weight Start Date: 08/27/22 Status: Ordered gabapentin 300 mg oral capsule 300 mg, 1, capsule, By Mouth, Daily at bedtime, # 90 capsule, Refills 0, Tot. Refills 0, Maintenance, 04/25/23 12:09:00 EST, Route to Pharmacy Electronically, [facility]/pharmacy #[id number], Partial fill upon patient request if the [...] Personnel Name: Radha ACEVES, Bebo Reed Position: [facility] Physician - Primary Care Member Role: PCP Address: Address: [address] [place] [address]- Name: Kelsy Cyr RN Position: S RN Member Role: Primary Care Nurse Name: Beena Mack [place] Position: [facility] Onco RN Member Role: Primary Care Nurse Care Team Related Persons Name: RACHEL MANCIA Address: home [address] [place] [address]
--- OUTSIDE RECORDS SUMMARY | 2023-08-01 10:02 | XMS_ITS | Continuity of Care Document ---
Author Organization [facility] Karson lt Address [address] [place] [address]- Care Team Providers Care Team Physician Name Role Phone Radha ACEVES, Bebo Reed Primary Care Physician Encounter [facility] Date(s): 02/04/22 - 03/06/22 [facility] Adult [address] [place] [address]- Allergies, Adverse Reactions, Alerts Substance Reaction Severity [...] [facility] [place] 2Result Comment: [03/09/2016] [facility] 3[facility] 4Admin Note: per pt historical data rcvd here Medications amLODIPine 5 mg oral tablet 5 mg, 1, tablet, By Mouth, Daily, # 90 tablet, Refills 3, Tot. Refills 3, Maintenance, 10/30/21 11:26:00 EDT, Route to Pharmacy Electronically, [facility], Partial fill upon patient request if [...] tablet, 1 Refills, Maintenance, 11/08/21 19:06:00 EDT, [facility], 156, cm, 10/30/21 [...] Team Personnel Name: Bebo Garcia MD Position: [facility] Primary Care Physician Member Role: PCP Address: Address: [address] [place] [address]- Name: Kelsy Cyr RN Position: S RN Member Role: Primary Care Nurse Name: Beena Mack [place] Position: [facility] Onco RN Member Role: Primary Care Nurse Care Team Related Persons Name: RACHEL MANCIA Address: home [address] [place] [address]
--- OUTSIDE RECORDS SUMMARY | 2023-08-01 10:02 | XMS_ITS | Continuity of Care Document ---
Author Organization [facility] Address [address] [place] [address]- Care Team Providers Care Rn Correctional Name Role Phone Bebo Garcia MD Primary Care Physician [facility]counter [facility] Date(s): 09/26/22 - 10/26/22 [facility] [address] [place], [place] [address] Attending Physician: Admjaycob, Yari Admitting Physician: Admtr, Yari Referring Physician: Admtr, Ar8 Allergies, Adverse Reactions, Alerts Substance Reaction Severity Status Lipitor Active NSAIDs GI UPSET Active chlorhexidine containing compounds Active Immunizations Given and Recorded Vaccine Date Status Refusal Reason [id number] bivalent booster vax 12/16/21 Recorded influenza virus [...] toxoids (Td) 05/22/97 Given 1Result Comment: [11/05/2016] [facility] [place] [facility] 2Result Comment: [03/09/2016] [facility] 3Location History: [facility] 4Admin Note: per pt historical data rcvd here Medications amLODIPine 5 mg oral tablet 5 mg, 1, tablet, By Mouth, Daily, # 90 tablet, Refills 3, Tot. Refills 3, Maintenance, 08/27/22 7:39:00 EDT, [facility], Partial fill upon patient request if the prescription is for a schedule I... Start Date: 08/27/22 Status: Ordered amoxicillin 500 mg oral tablet 1 tablet = 500 mg, By Mouth, 3 times a day, for 10 days, # 30 tablet, 0 Refills, Acute 11/05/22 10:33:00 EDT, 10/26/22 10:33:00 EDT, Tablet, [facility]/pharmacy #[id number], Partial fill upon patient request if the [...] Team Personnel Name: Bebo Garcia MD Position: [facility] Physician - Primary Care Member Role: PCP Address: Address: [address] [place] [address]- Name: Ger HARRIS, Kelsy Position: [facility] RN Member Role: Primary Care Nurse Name: Beena Mack [place] Position: [facility] Onco RN Member Role: Primary Care Nurse Care Team Related Persons Name: RACHEL MANCIA Address: [address] [address]
--- OUTSIDE RECORDS SUMMARY | 2023-08-01 10:02 | XMS_ITS | Continuity of Care Document ---
Author Organization [facility] Chris Baird Karson lt Address [address] [place] [address]- Care Team Providers Care Retail Sales Associate Seasonal Name Role Phone Bebo Garcia MD Primary Care Physician [phone] [facility]counter [facility] Date(s): 11/13/20 - 12/13/20 [facility] Chris Baird Adult [address] [place] [address]- Allergies, Adverse Reactions, Alerts Substance Reaction Severity [...] toxoids (Td) 05/22/97 Given 1Result Comment: [11/05/2016] [facility] [place] [facility] 2Result Comment: [03/09/2016] [facility] 4Admin Note: per pt historical data rcvd here Medications Lashawn By Mouth, 0 Refills, Maintenance, 07/06/16 14:19:02 Start Date: 07/06/16 Status: Ordered amLODIPine 2.5 mg oral tablet See Instructions, TAKE THREE TABLETS BY MOUTH EVERY DAY, # 90 tablet, 11 Refills, Maintenance, 11/10/20 11:12:00 EDT, [facility], 157.2, cm, 10/29/20 10:40:00 EDT, [...] 0 Refills, Maintenance, 10/23/15 14:53:04 Start Date: 9/1/16 Status: Ordered valacyclovir 1 gm oral tablet [...]
--- OUTSIDE RECORDS SUMMARY | 2023-08-01 10:02 | XMS_ITS | Continuity of Care Document ---
Author Organization [facility] Address [address] [facility] [address] [address] [place] [address]- Care Team Providers Care Food And Beverage Assistant Name Role Phone Bebo Garcia MD Primary Care Physician Encounter 02/05/19 - 02/12/19 [facility] [address], [address] [place] [address]- [phone] Attending Physician: Bebo Garcia MD Admitting Physician: [...] Maintenance, 08/08/1911:20:04 EDT, Route to Pharmacy Electronically, [id number], [facility] Start Date: [...]
--- OUTSIDE RECORDS SUMMARY | 2023-08-01 10:03 | XMS_ITS | Continuity of Care Document ---
Author Organization [facility] Address [address] [place] [address]- Care Team Providers Care Supervisor Beater Room Name Role Phone Radha ACEVES, Bebo Reed Primary Care Physician Encounter [facility] Date(s): 09/23/21 - 02/20/22 [facility] [address] [place] [address]- Discharge Disposition: A-D/C Home Attending Physician: Guzman Boss MD Admitting Physician: Guzman Boss MD Referring Physician: Jorden Mae MD Allergies, [...] (Td) 05/22/97 Given 1Result Comment: [11/05/2016] [facility] [place] [facility] 2Result Comment: [03/09/2016] [facility] 3[facility] 4Admin Note: per pt historical data rcvd here Medications amLODIPine 5 mg oral tablet 5 mg, 1, tablet, By Mouth, Daily, # 90 tablet, Refills 3, Tot. Refills 3, Maintenance, 10/30/21 11:26:00 EDT, Route to Pharmacy Electronically, [facility], Partial fill upon [...] oldest [Reference Range]: 1 Height 156 cm (10/15/21 1:40 PM) Weight 54.8 kg (10/15/21 1:40 PM) Pulse Rate [55-90 bpm] 69 bpm (10/15/21 1:40 PM) Body Mass Index [18.5-24.99] 22.52 (10/15/21 1:40 PM) Blood Pressure [90-138/55-84 mm Hg] 166/ 73mm Hg *H* (10/15/21 1:40 PM) Temperature [96.8-100.4 DegF] 98.6 DegF (10/15/21 1:40 PM) Blood pressure sites Arm, right (10/15/21 1:40 PM) Temperature Route Oral (10/15/21 1:40 PM) Dry Weight 54.8 kg (10/15/21 1:40 PM) Weight Obtained Via Standing scale (10/15/21 1:40 PM) Dry Weight Obtained Via Standing scale (10/15/21 1:40 PM) Social History Social History Type Response Smoking Status Former smoker entered on: 01/17/13 Sex Patient Care team information Care Team Personnel Name: Bebo Garcia MD Position: [facility] Primary Care Physician Member Role: PCP Address: Address: [address] [place] [address]- Name: Kelsy Cyr RN Position: S RN Member Role: Primary Care Nurse Name: Beena Mack [place] Position: [facility] Onco RN Member Role: Primary Care Nurse Care Team Related Persons Name: RACHEL MANCIA Address: home [address] [place] [address]
--- OUTSIDE RECORDS SUMMARY | 2023-08-01 10:03 | XMS_ITS | Continuity of Care Document ---
Author Organization [facility] Address [address] [place] [address]- Care Team Providers Care Trolley Car Operator Name Role Phone Radha ACEVES, eBbo Reed Primary Care Physician [phone] [facility] Date(s): 07/19/23 - 07/26/23 [facility] [address] [place] [address] Attending Physician: Jn Sharma MD Referring Physician: Nickie ACEVES, Mark Lopez Allergies, Adverse Reactions, Alerts Substance Reaction Severity Status Lipitor Active chlorhexidine containing compounds Active NSAIDs GI UPSET Active Immunizations Given and Recorded Vaccine Date Status Refusal Reason RSV vaccine preF3, recombinant 01/05/23 Recorded SARS-CoV-2(COVID-19)mRNA-LNP vac(kow322) 11/29/22 Recorded influenza virus vaccine, inactivated 11/21/22 [...] corded pneumococcal 20-valent conjugate vaccine 11/02/22 Given [id number] bivalent booster vax 08/17/22 Recorded [id number] bivalent booster vax 12/16/21 Recorded SARS-CoV-2 (COVID-19) [...] 08/27/22 7:39:00 EDT, Route to Pharmacy Electronically, [facility], Partial fill upon [...] tablet, 3 Refills, Maintenance, 08/27/22 7:39:00 EDT, [facility], 156, cm, 08/04/22 9:08:00 EDT, Height, 54.8, kg, 10/15/21 13:40:00 EDT, Dry Weight Start Date: 08/27/22 Status: Ordered gabapentin 300 mg oral capsule 300 mg, 1, capsule, By Mouth, Daily at bedtime, # 90 capsule, Refills 0, Tot. Refills 0, Maintenance, 04/25/23 12:09:00 EST, Route to Pharmacy Electronically, [facility]/pharmacy #[id number], Partial fill upon patient request [...] d/c fosamax and recheck bone density 07/2012 Procedures Procedure Date Related Diagnosis Body Site Status right knee arthroscopy 2008; L3-L4 microdiscetomy 2016; Left eye cataract, Craniotimy for meningioma 2021; Right knee arthroscopy 2023 Completed Vital Signs Most recent to oldest [Reference Range]: 1 Height 156 cm (07/19/23 10:51 AM) Weight 57.6 kg (07/19/23 10:51 AM) Oxygen Saturation [94-100 %] 99 % (07/19/23 10:51 AM) Pulse Rate [55-90 bpm] 70 bpm (07/19/23 10:51 AM) Body Mass Index [18.5-24.99 kg/m2] 23.67 kg/m2 (07/19/23 10:51 AM) Blood Pressure [90-138/55-84 mm Hg] 138/ 69mm Hg (07/19/23 10:51 AM) Respiratory Rate [16-30 br/min] 14 br/mi n *L* (07/19/23 10:51 AM) Mode of Delivery (Oxygen) Room air (07/19/23 10:51 AM) Blood pressure sites Arm, left (07/19/23 10:51 AM) Dry Weight 57.6 kg (07/19/23 10:51 AM) Weight Obtained Via Standing scale (07/19/23 10:51 AM) Dry Weight Obtained Via Standing scale (07/19/23 10:51 AM) Social History Social History Type Response Smoking Status Former smoker, quit more than 30 days ago entered on: 07/19/23 Sex Patient Care team information Care Team Personnel Name: Bebo Garcia MD Position: [facility] Physician - Primary Care Member Role: PCP Address: Address: [address] [place] [address]- Name: Kelsy Cyr RN Position: S RN Member Role: Primary Care Nurse Name: Beena Mack [place] Position: [facility] Onco RN Member Role: Primary Care Nurse Care Team Related Persons Name: RACHEL MANCIA Address: [address] [address]
--- OUTSIDE RECORDS SUMMARY | 2023-08-01 10:03 | XMS_ITS | Continuity of Care Document ---
Author Organization [facility] Chris Baird Karson lt Address [address] [place] [address]- Care Team Providers Care Addiction Counselor Name Role Phone Bebo Garcia MD Primary Care Physician [phone] [facility]counter [facility] Date(s): 01/11/20 - 02/10/20 [facility] Chris Baird Adult [address] [place] [address]- Allergies, Adverse Reactions, Alerts Substance [...] 08/22/19 12:56:00 EDT, Route to Pharmacy Electronically, [facility], 157.2, cm, 04/20/19 9:37:00 [...] 10/19/19 12:44:00 EDT, Route to Pharmacy Electronically, [facility], 157.2, cm, 04/20/19 9:37:00 [...]
--- OUTSIDE RECORDS SUMMARY | 2023-08-01 10:03 | XMS_ITS | Continuity of Care Document ---
Author Organization [facility] Address [address] [address]- Care Team Providers Care Sales Incentive Analyst Name Role Phone Radha ACEVES, Bebo Reed Primary Care Physician [phone] Encounter [facility] Date(s): 06/07/23 - 06/14/23 [place] [address] [address]- Attending Physician: Dilshad Doshi MD Admitting Physician: Dilshad Doshi MD Referring Physician: Dilshad Doshi MD Allergies, Adverse Reactions, Alerts Substance Reaction Severity Status Lipitor Active chlorhexidine containing compounds Active NSAIDs GI UPSET Active Immunizations Given and Recorded Vaccine Date Status Refusal Reason RSV vaccine preF3, recombinant 01/05/23 Recorded SARS-CoV-2(COVID-19)mRNA-LNP vac([id number]) 11/29/22 Recorded influenza virus vaccine, inactivated 11/21/22 [...] corded pneumococcal 20-valent conjugate vaccine 11/02/22 Given [id number] bivalent booster vax 08/17/22 Recorded [id number] bivalent booster vax 12/16/21 Recorded SARS-CoV-2 (COVID-19) [...] 08/27/22 7:39:00 EDT, Route to Pharmacy Electronically, [facility] [...] 04/25/23 12:09:00 EST, Route to Pharmacy Electronically, [facility]/pharmacy #[id number], Partial fill upon patient request if the [...] 01/17/13 Sex EKG study * Event Display: ECG 12-Lead Authored Date: Please click on pdf link to open report * Event Display: ECG 12-Lead Authored Date: Ventricular Rate: 56 BPM Atrial Rate: 56 BPM P-R Interval: 208 ms QRS Duration: 74 ms Q-T Interval: 410 ms QTC Calculation(Bazett): 395 ms P [place]: 57 degrees R [place]: -16 degrees T [place]: 22 degrees Sinus bradycardia Low voltage QRS Inferior infarct , age undetermined Cannot rule out Anterior infarct (cited on or before 10-OCT-2021) Abnormal ECG When compared with ECG of 10-OCT-2021 09:48, Premature ventricular complexes are no longer Present Confirmed by YE MORENO ([id number]) on 06/07/2023 2:53:08 PM [place]: YE MORENO Patient Care team information Care Team Personnel Name: Bebo Garcia MD Position: [facility] Physician - Primary Care Member Role: PCP Address: Address: [address] [place] [address]- Name: Ger HARRIS, Kelsy Position: S RN Member Role: Primary Care Nurse Name: Beena Mack [place] Position: [facility] Onco RN Member Role: Primary Care Nurse Care Team Related Persons Name: RACHEL MANCIA Address: home [address] [place] [address]
--- OUTSIDE RECORDS SUMMARY | 2023-08-01 10:03 | XMS_ITS | Continuity of Care Document ---
Author Organization [facility] Oli Karson lt Address [address] [place] [address]- Care Team Providers Care Certified Nursing Attendant Name Role Phone Radha ACEVES, Bebo Reed Primary Care Physician [facility]): 04[facility]17[facility]19 - 04/24/19 [facility] Adult [address] [place] [address]- [place] Encounter Diagnosis Ear pain(Discharge Diagnosis) - 04/17/19 Allergic sinusitis(Discharge Diagnosis) - 04/17/19 Attending Physician: Jn Sharma MD Allergies, Adverse Reactions, Alerts Substance Reaction [...] Maintenance, 08/08/1911:20:04 EDT, Route to Pharmacy Electronically, [id number], [facility] Start Date: [...] Dates Health Status Cl inical Service Informant Ear pain Discharge Diagnosis 04/17/19 Allergic sinusitis Discharge Diagnosis 04/17/19 Vital Signs Most recent to oldest [Reference Range]: 1 Height 157.2 cm (04/17/19 3:07 PM) Weight 55.9 kg (04/17/19 3:07 PM) Oxygen Saturation [94-100 %] 98 % (04/17/19 3:07 PM) Pulse Rate [55-90 bpm] 74 bpm (04/17/19 3:07 PM) Body Mass Index [18.5-24.99] 22.62 (04/17/19 3:07 PM) Blood Pressure [90-138/55-84 mm Hg] 124/ 70mm Hg (04/17/19 3:07 PM) Temperature [96.8-100.4 DegF] 98.2 DegF (04/17/19 3:07 PM) Mode of Delivery (Oxygen) Room air (04/17/19 3:07 PM) Blood pressure sites Arm, left (04/17/19 3:07 PM) Temperature Route Oral (04/17/19 3:07 PM) Weight Obtained Via Standing scale (04/17/19 3:07 PM) Social History Social History Type Response Smoking Status Former smoker entered on: 02/04/14 Sex Female
--- OUTSIDE RECORDS SUMMARY | 2023-08-01 10:03 | XMS_ITS | Continuity of Care Document ---
Author Organization [facility] Oli Karson lt Address [address] [place] [address]- Care Team Providers Care Shotblast Operator Name Role Phone Bebo Garcia MD Primary Care Physician [phone] [facility] 05/21/21 - 06/20/21 [facility] [place] Adult [address] [place] [address]- Attending Physician: Admtr, Ar8 Admitting Physician: Admtr, [...] 01/31/16 Re corded influenza virus vaccine, inactivated 9/19/16 Nima rded influenza virus vaccine, inactivated 12/26/14 [...] toxoids (Td) 05/22/97 Given 1Result Comment: [11/05/2016] [facility] [place] [facility] 2Result Comment: [03/09/2016] [facility] 3Location History: [facility] 4Admin Note: per pt historical data rcvd here Medications Lashawn By Mouth, 0 Refills, Maintenance, 07/06/16 14:19:02 Start Date: 07/06/16 Status: Ordered amLODIPine 2.5 mg oral tablet See Instructions, TAKE THREE TABLETS BY MOUTH EVERY DAY, # 90 tablet, 11 Refills, Maintenance, 11/10/20 11:12:00 EDT, [facility], 157.2, cm, 10/29/20 10:40:00 [...] 10/19/19 12:44:00 EDT, Route to Pharmacy Electronically, [facility], 157.2, cm, 04/20/19 9:37:00 [...] 16:02:00 EDT, Tablet, [facility], Partial fill upon patient request if [...]
--- OUTSIDE RECORDS SUMMARY | 2023-08-01 10:03 | XMS_ITS | Continuity of Care Document ---
Author Organization [facility] Oli Karson lt Address [address] [place] [address]- Care Team Providers Care Chemical Dependency Therapist Name Role Phone Radha ACEVES, Bebo Reed Primary Care Physician [facility] Date(s): 05/05/23 - 06/04/23 [facility] Adult [address] [place] [address]- Allergies, Adverse Reactions, Alerts Substance Reaction Severity Status Lipitor Active chlorhexidine containing compounds Active NSAIDs GI UPSET Active Immunizations Given and Recorded Vaccine Date Status Refusal Reason RSV vaccine preF3, recombinant 01/05/23 Recorded SARS-CoV-2(COVID-19)mRNA-LNP vac([id number]) 11/29/22 Recorded influenza virus vaccine, inactivated 11/21/22 [...] corded pneumococcal 20-valent conjugate vaccine 11/02/22 Given [id number] bivalent booster vax 08/17/22 Recorded [id number] bivalent booster vax 12/16/21 Recorded SARS-CoV-2 (COVID-19) [...] toxoids (Td) 05/22/97 Given 1Result Comment: [11/05/2016] [facility] [place] [facility] 2Result Comment: [03/09/2016] [facility] 3Location History: [facility] 4Admin Note: per pt historical data rcvd here Medications [place] 24 Hour Allergy = 180 mg, By Mouth, Daily, 0 Refills, Maintenance, 04/25/23 11:18:00 EST, Partial fill upon patientrequest if the prescription is for a schedule II opioid drug. Start Date: 04/25/23 Status: Ordered amLODIPine 5 mg oral tablet 5 mg, 1, tablet, By Mouth, Daily, # 90 tablet, Refills 3, Tot. Refills 3, Maintenance, 08/27/22 7:39:00 EDT, Route to Pharmacy Electronically, [facility], Partial fill upon [...] tablet, 3 Refills, Maintenance, 08/27/22 7:39:00 EDT, [facility], 156, cm, 08/04/22 9:08:00 EDT, Height, 54.8, kg, 10/15/21 13:40:00 EDT, Dry Weight Start Date: 08/27/22 Status: Ordered gabapentin 300 mg oral capsule 300 mg, 1, capsule, By Mouth, Daily at bedtime, # 90 capsule, Refills 0, Tot. Refills 0, Maintenance, 04/25/23 12:09:00 EST, Route to Pharmacy Electronically, [facility]/pharmacy #[id number], Partial fill upon patient request if the [...] Personnel Name: Radha ACEVES, Bebo Reed Position: [facility] Physician - Primary Care Member Role: PCP Address: Address: [address] [place] [address]- Name: Kelsy Cyr RN Position: S RN Member Role: Primary Care Nurse Name: Beena Mack [place] Position: [facility] Onco RN Member Role: Primary Care Nurse Care Team Related Persons Name: RACHEL MANCIA Address: home [address] [place] [address]
--- OUTSIDE RECORDS SUMMARY | 2023-08-01 10:03 | XMS_ITS | Continuity of Care Document ---
Author Organization [facility] Address [address] [address]- Care Team Providers Care Runner Worker Name Role Phone Radha ACEVES, Bebo Reed Primary Care Physician [facility](s): 06/07/23 - 07/07/23 [facility] [address] [address]- Attending Physician: Yari Rivera Admitting Physician: Yari Rivera Referring Physician: AdmtrYari Allergies, Adverse Reactions, Alerts Substance Reaction Severity Status Lipitor Active chlorhexidine containing compounds Active NSAIDs GI UPSET Active Immunizations Given and Recorded Vaccine Date Status Refusal Reason RSV vaccine preF3, recombinant 01/05/23 Recorded SARS-CoV-2(COVID-19)mRNA-LNP vac([id number]) 11/29/22 Recorded influenza virus vaccine, inactivated 11/21/22 [...] corded pneumococcal 20-valent conjugate vaccine 11/02/22 Given [id number] bivalent booster vax 08/17/22 Recorded [id number] bivalent booster vax 12/16/21 Recorded SARS-CoV-2 (COVID-19) [...] 7:39:00 EDT, Route to Pharmacy Electronically, [facility], Partial fill upon patient request [...] 3 Refills, Maintenance, 08/27/22 7:39:00 EDT, [facility], 156, cm, 08/04/22 9:08:00 EDT, Height, 54.8, kg, 10/15/21 13:40:00 EDT, Dry Weight Start Date: 08/27/22 Status: Ordered gabapentin 300 mg oral capsule 300 mg, 1, capsule, By Mouth, Daily at bedtime, # 90 capsule, Refills 0, Tot. Refills 0, Maintenance, 04/25/23 12:09:00 EST, Route to Pharmacy Electronically, [facility]/pharmacy #[id number], Partial fill upon patient request if the [...] Garcia MD Position: [facility] Physician - Primary Care Member Role: PCP Address: Address: [address] [place] [address]- Name: Kelsy Cyr RN Position: S RN Member Role: Primary Care Nurse Name: Beena Mack [place] Position: [facility] Onco RN Member Role: Primary Care Nurse Care Team Related Persons Name: RACHEL MANCIA Address: home [address] [place] [address]
--- OUTSIDE RECORDS SUMMARY | 2023-08-01 10:03 | XMS_ITS | Continuity of Care Document ---
Author Organization [facility] Karsno lt Address [address] [place] [address]- Care Team Providers Care Apron Cleaner Name Role Phone Radha ACEVES, Bebo Reed Primary Care Physician Encounter [facility] Date(s): 08/04/22 - 09/03/22 [facility] Adult [address] [place] [address]- Attending Physician: Yari Rivera Admitting Physician: AdmYari devries Referring Physician: AdmtrYari Allergies, Adverse Reactions, Alerts Substance Reaction Severity Status Lipitor Active chlorhexidine containing compounds Active NSAIDs GI UPSET Active Immunizations Given and Recorded Vaccine Date Status Refusal Reason [id number] bivalent booster vax 12/16/21 Recorded influenza virus [...] [facility] [place] 2Result Comment: [03/09/2016] [facility] 3Location History: [facility] 4Admin Note: per pt historical data rcvd here Medications amLODIPine 5 mg oral tablet 5 mg, 1, tablet, By Mouth, Daily, # 90 tablet, Refills 3, Tot. Refills 3, Maintenance, 08/27/22 7:39:00 EDT, Route to Pharmacy Electronically, [facility], Partial fill upon patient [...] tablet, 3 Refills, Maintenance, 08/27/22 7:39:00 EDT, [facility], 156, cm, 08/04/22 9:08:00 [...] Date: * Event Display: EKG Authored Date: Laboratory * Event Display: Non BH Lab Results Authored Date: * Event Display: Non BH Lab Results Authored Date: * Event Display: Non BH Lab Results Authored Date: MG Breast Views * Event Display: MM Mammogram Authored Date: Radiology * Event Display: Radiology Result Scanned Authored Date: * Marleen Stallworth: PERFORM Event Display: Radiology Results Scanned Authored Date: [id number] * Marleen Stallworth: PERFORM Event Display: Radiology Results Scanned Authored Date: [id number] Patient Care team information Care Team Personnel Name: Bebo Garcia MD Position: [facility] Physician - Primary Care Member Role: PCP Address: Address: [address] [place] [address]- Name: Kelsy Cyr RN Position: S RN Member Role: Primary Care Nurse Name: Beena Mack [place] Position: [facility] Onco RN Member Role: Primary Care Nurse Care Team Related Persons Name: RACHEL MANCIA Address: [address] [address]
--- OUTSIDE RECORDS SUMMARY | 2023-08-01 10:03 | XMS_ITS | Continuity of Care Document ---
Author Organization [facility] Karson lt Address [address] [place] [address]- Care Team Providers Care Cement Car Dumper Name Role Phone Radha ACEVES, Bebo Reed Primary Care Physician [facility](s): 04/25/23 - 05/25/23 [facility] Adult [address] [place] [address]- Allergies, Adverse Reactions, Alerts Substance Reaction Severity Status Lipitor Active chlorhexidine containing compounds Active NSAIDs GI UPSET Active Immunizations Given and Recorded Vaccine Date Status Refusal Reason RSV vaccine preF3, recombinant 01/05/23 Recorded SARS-CoV-2(COVID-19)mRNA-LNP vac([id number]) 11/29/22 Recorded influenza virus vaccine, inactivated 11/21/22 [...] corded pneumococcal 20-valent conjugate vaccine 11/02/22 Given [id number] bivalent booster vax 08/17/22 Recorded [id number] bivalent booster vax 12/16/21 Recorded SARS-CoV-2 (COVID-19) [...] toxoids (Td) 05/22/97 Given 1Result Comment: [11/05/2016] [facility] [place] [facility] 2Result Comment: [03/09/2016] [facility] 3Location History: [facility] 4Admin Note: per pt historical data rcvd [...] to Pharmacy Electronically, [facility], Partial fill upon patient [...] 08/27/22 7:39:00 EDT, [facility], 156, cm, 08/04/22 9:08:00 [...] 04/25/23 12:09:00 EST, Route to Pharmacy Electronically, [facility]/pharmacy #[id number], Partial fill upon patient request if [...] Personnel Name: Radha ACEVES, Bebo Reed Position: [facility] Physician - Primary Care Member Role: PCP Address: Address: [address] [place] [address]- Name: Kelsy Cyr RN Position: S RN Member Role: Primary Care Nurse Name: Beena Mack [place] Position: [facility] Onco RN Member Role: Primary Care Nurse Care Team Related Persons Name: RACHEL MANCIA Address: home [address] [place] [address]
--- OUTSIDE RECORDS SUMMARY | 2023-08-01 10:03 | XMS_ITS | Continuity of Care Document ---
Author Organization [facility] Chris Baird Karson lt Address [address] [place] [address]- Care Team Providers Care Circular Knife Machine Cutter Name Role Phone Bebo Garcia MD Primary Care Physician [phone] [facility]s): 09/15/21 - 10/15/21 [facility] Chris Baird Adult [address] [place] [address]- Allergies, Adverse Reactions, Alerts Substance Reaction Severity [...] 3 Refills, Maintenance, 12/12/20 16:02:00 EDT, Tablet, [facility], Partial fill upon patient [...] Personnel Name: Radha ACEVES, Bebo Reed Address: [address] [place] [id number]
--- OUTSIDE RECORDS SUMMARY | 2023-08-01 10:03 | XMS_ITS | Continuity of Care Document ---
Author Organization [facility] Marietta Karson lt Address [address] [place] [address]- Care Team Providers Care Green Building Engineer Name Role Phone Radha ACEVES, Bebo Reed Primary Care Physician [phone] [facility] Date(s): 08/14/20 - 09/13/20 [facility] Adult [address] [place] [address]- Allergies, Adverse Reactions, Alerts Substance Reaction Severity [...] [facility] [place] [facility] 3Result Comment: [03/09/2016] [facility] 4Location History: [facility] Medications Lashawn By Mouth, 0 Refills, Maintenance, 07/06/16 14:19:02 Start Date: 07/06/16 Status: Ordered amLODIPine 2.5 mg oral tablet See Instructions, TAKE THREE TABLETS BY MOUTH EVERY DAY, # 90 tablet, 3 Refills, Maintenance, 08/27/20 8:01:00 EDT, [facility], 157.2, cm, 07/17/20 10:32:00 EDT, Height, [...] 3 Refills, Maintenance, 08/27/20 8:00:00 EDT, Tablet, [facility], Partial [...]
--- OUTSIDE RECORDS SUMMARY | 2023-08-01 10:03 | XMS_ITS | Continuity of Care Document ---
Author Organization [facility] Karson lt Address [address] [place] [address]- Care Team Providers Care Dividend Clerk Name Role Phone Radha ACEVES, Bebo Reed Primary Care Physician Encounter [facility] Date(s): 04/25/23 - 05/02/23 [facility] Adult [address] [place] [address]- Encounter Diagnosis Otitis media, left(Discharge Diagnosis) - 04/25/23 Attending Physician: Justina FRANCOIS, Olga Watson Allergies, Adverse Reactions, Alerts Substance Reaction Severity Status Lipitor Active chlorhexidine containing compounds Active NSAIDs GI UPSET Active Immunizations Given and Recorded Vaccine Date Status Refusal Reason pneumococcal 20-valent conjugate vaccine 11/02/22 Given [id number] bivalent booster vax 12/16/21 Recorded influenza virus [...] [facility] [place] [facility] [place] 2Result Comment: [03/09/2016[facility] 3[facility] [...] 08/27/22 7:39:00 EDT, Route to Pharmacy Electronically, [facility], Partial fill upon patient request if the prescription is for a schedule I... Start Date: 08/27/22 Status: Ordered aspirin 81 mg oral tablet 1 tablet = 81 mg, By Mouth, Daily, 0 Refills, Maintenance, 07/07/18 8:59:22 EDT Start Date: 07/07/18 Status: Ordered Augmentin 875 mg-125 mg oral tablet 1 tablet, By Mouth, Every 12 hours, for 10 days, with food or milk, # 20 tablet, 0 Refills, Acute 05/05/23 12:06:00 EDT, 04/25/23 12:06:00 EST, Tablet, [facility]/pharmacy #[id number], Partial fill upon patient request if the prescription is for a schedule II opio... Start Date: 04/25/23 Stop Date: 05/05/23 Status: Ordered Calcium 600+D oral tablet 1 tablet, By Mouth, Daily, 0 Refills, Maintenance, 10/23/15 14:52:57 Start Date: 10/23/15 Status: Ordered ezetimibe 10 mg oral tablet 1 tablet, By Mouth, Daily, # 90 tablet, 3 Refills, Maintenance, 08/27/22 7:39:00 EDT, [facility], 156, cm, 08/04/22 9:08:00 [...] 04/25/23 12:09:00 EST, Route to Pharmacy Electronically, [facility]/pharmacy #[id number], Partial fill upon [...] Dates Health Status Cl inical Service Informant Otitis media, left Discharge Diagnosis 04/25/23 Vital Signs Most recent to oldest [Reference Range]: 1 2 Height 156 cm (04/25/23 11:29 AM) 156 cm (04/25/23 11:18 AM) Weight 57.7 kg (04/25/23 11:18 AM) Oxygen Saturation [94-100 %] 98 % (04/25/23 11:18 AM) Pulse Rate [55-90 bpm] 54 bpm *L* (04/25/23 11:18 AM) Body Mass Index [18.5-24.99 kg/m2] 23.71 kg/m2 (04/25/23 11:18 AM) Blood Pressure [90-138/55-84 mm Hg] 142/ 70mm Hg *H* (04/25/23 11:29 AM) 152/70mm Hg *H* (04/25/23 11:18 AM) Temperature [96.8-100.4 DegF] 97.8 DegF (04/25/23 11:18 AM) Mode of Delivery (Oxygen) Room air (04/25/23 11:18 AM) Blood pressure sites Arm, right (04/25/23 11:29 AM) Arm, right (04/25/23 11:18 AM) Temperature Route Oral (04/25/23 11:18 AM) Weight Obtained Via Standing scale (04/25/23 11:18 AM) Social History Social History Type Response Smoking Status Former smoker entered on: 01/17/13 Sex Patient Care team information Care Team Personnel Name: Bebo Garcia MD Position: [facility] Physician - Primary Care Member Role: PCP Address: Address: [address] [place] [address]- Name: Kelsy Cyr RN Position: [facility] RN Member Role: Primary Care Nurse Name: Beena Mack [place] Position: [facility] Onco RN Member Role: Primary Care Nurse Care Team Related Persons Name: BLANCHE RACHEL Address: home [address] [place] [address]
--- OUTSIDE RECORDS SUMMARY | 2023-08-01 10:04 | XMS_ITS | Continuity of Care Document ---
Author Organization [facility] Karson lt Address [address] [place] [address]- Care Team Providers Care Flow Coordinator Name Role Phone Bebo Garcia MD Primary Care Physician [facility]s): 08/22/19 - 09/21/19 [facility] Adult [address] [place] [address]- [facility] Allergies, Adverse Reactions, Alerts Substance Reaction [...] 08/22/19 12:56:00 EDT, Route to Pharmacy Electronically, [facility], 157.2, cm, 04/20/19 [...]
--- OUTSIDE RECORDS SUMMARY | 2023-08-01 10:04 | XMS_ITS | Continuity of Care Document ---
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) - 04/24/20 Cerebellar infarct(Discharge Diagnosis) - 04/24/20 Hypercholesterolemia(Discharge Diagnosis) - 04/24/20 HTN (hypertension)(Discharge Diagnosis) - 04/24/20 Attending Physician: Bebo Garcia MD Allergies, Adverse Reactions, Alerts Substance Reaction Severity Status Lipitor Active NSAIDs GI UPSET Active Immunizations Given and Recorded Vaccine Date Status Refusal Reason SARS-CoV-2 (COVID-19) mRNA-1273 vaccine 04/12/20 R ecorded [...] 02/25/20 9:21:00 EST, Route to Pharmacy Electronically, [facility], 157.2, cm, 01/11/20 12:55:00 [...] occlusion of right vertebral artery Discharge Diagnosis 04/24/20 Cerebellar infarct Discharge Diagnosis 04/24/20 Hypercholesterolemia Discharge Diagnosis 04/24/20 HTN (hypertension) Discharge Diagnosis 04/24/20 Vital Signs Most recent to oldest [Reference Range]: 1 2 3 Height 157.2 cm (04/24/20 11:22 AM) 157.2 cm (04/24/20 11:19 AM) 157.2 cm (04/24/20 10:48 AM) Weight 56.2 kg (04/24/20 10:48 AM) Oxygen Saturation [94-100 %] 98 % (04/24/20 10:48 AM) Pulse Rate [55-90 bpm] 83 bpm (04/24/20 10:48 AM) Body Mass Index [18.5-24.99] 22.74 (04/24/20 10:48 AM) Blood Pressure [90-138/55-84 mm Hg] 113/67mm Hg (04/24/20 11:22 AM) 149/70mm Hg *H* (04/24/20 11:19 AM) 186/80mm Hg *H* (04/24/20 10:48 AM) Mode of Delivery (Oxygen) Room air (04/24/20 10:48 AM) Blood pressure sites Arm, left (04/24/20 11:19 AM) Arm, left (04/24/20 10:48 AM) Weight Obtained Via Standing scale (04/24/20 10:48 AM) Social History Social History Type Response Smoking Status Former smoker entered on: 02/04/14 Sex Female
--- OUTSIDE RECORDS SUMMARY | 2023-08-01 10:04 | XMS_ITS | Continuity of Care Document ---
Author Organization [facility] Address [address] [place] [address]- Care Team Providers Care Surgical Sales Representative Name Role Phone Bebo Garcia MD Primary Care Physician [phone] [facility]s): 09/23/21 - 10/23/21 [facility] [address] [place] [address]- Attending Physician: Yari Rivera Admitting Physician: Yari [...] 3 Refills, Maintenance, 12/12/20 16:02:00 EDT, Tablet, [facility], Partial fill upon patient request if [...] Personnel Name: Radha ACEVES, Bebo Reed Address: [address] [place] [address]-
--- OUTSIDE RECORDS SUMMARY | 2023-08-01 10:04 | XMS_ITS | Continuity of Care Document ---
Author Organization [facility] Address [address] [place] [address]- Care Team Providers Care Embedded Hardware Engineer Name Role Phone Radha ACEVES, Bebo Reed Primary Care Physician [phone] Encounter 02/29/20 - 03/07/20 [facility] [address], [address] [place] [address]- Attending Physician: Bebo Garcia MD Admitting Physician: [...] 02/25/20 9:21:00 EST, Route to Pharmacy Electronically, [facility], 157.2, cm, 01/11/20 12:55:00 [...]
--- OUTSIDE RECORDS SUMMARY | 2023-08-01 10:04 | XMS_ITS | Continuity of Care Document ---
Author Organization [facility] Oli Karson lt Address [address] [place] [address]- Care Team Providers Care Other Sports Official Name Role Phone Radha ACEVES, Bebo Reed Primary Care Physician [facility] Date(s): 12/30/21 - 01/29/22 [facility] Adult [address] [place] [address]- Allergies, Adverse Reactions, Alerts Substance Reaction Severity [...] (Td) 05/22/97 Given 1Result Comment: [11/05/2016] [facility] [place] [facility] 2Result Comment: [03/09/2016] [facility] 3[facility] 4Admin Note: per pt historical data rcvd here Medications amLODIPine 5 mg oral tablet 5 mg, 1, tablet, By Mouth, Daily, # 90 tablet, Refills 3, Tot. Refills 3, Maintenance, 10/30/21 11:26:00 EDT, [facility] to [facility], Partial fill upon patient request if [...] Refills, Maintenance, 11/08/21 19:06:00 EDT, [facility], 156, cm, 10/30/21 [...] Team Personnel Name: Bebo Garcia MD Position: [facility] Primary Care Physician Member Role: PCP Address: Address: [address] [place] [address]- Name: Kelsy Cyr RN Position: S RN Member Role: Primary Care Nurse Name: Beena Mack [place] Position: [facility] Onco RN Member Role: Primary Care Nurse Care Team Related Persons Name: RACHEL MANCIA Address: home [address] [place] [address]
--- OUTSIDE RECORDS SUMMARY | 2023-08-01 10:04 | XMS_ITS | Continuity of Care Document ---
Author Organization [facility] Chris Baird Karson lt Address [address] [place] [address]- Care Team Providers Care Quill Skinner Name Role Phone Bebo Garcia MD Primary Care Physician [facility]22 - 01/09/23 [facility] Chris Baird Adult [address] [place] [address]- Allergies, Adverse Reactions, Alerts Substance Reaction Severity Status Lipitor Active chlorhexidine containing compounds Active NSAIDs GI UPSET Active Immunizations Given and Recorded Vaccine Date Status Refusal Reason pneumococcal 20-valent conjugate vaccine 11/02/22 Given [id number] bivalent booster vax 12/16/21 Recorded influenza virus [...] [03/09/2016] [facility] 4Admin Note: per pt historical data rcvd here Medications amLODIPine 5 mg oral tablet 5 mg, 1, tablet, By Mouth, Daily, # 90 tablet, Refills 3, Tot. Refills 3, Maintenance, 08/27/22 7:39:00 EDT, Route to Pharmacy Electronically[facility], Partial fill upon patient [...] 0 Refills, Maintenance, 11/02/22 12:13:00 EDT, Cream, [facility]/pharmacy #[id number], Partial fill upon patient request if the [...] Primary Care Member Role: PCP Address: Address: [address] [place] [address]- Name: Kelsy Cyr RN Position: [facility] RN Member Role: Primary Care Nurse Name: Beena Mack [place] Position: [facility] Onco RN Member Role: Primary Care Nurse Care Team Related Persons Name: RACHEL MANCIA Address: [address] [place] [address]
--- OUTSIDE RECORDS SUMMARY | 2023-08-01 10:04 | XMS_ITS | Continuity of Care Document ---
Author Organization [facility] Chris Baird Karson lt Address [address] [place] [address]- Care Team Providers Care Loss Prevention Auditor Name Role Phone Bebo Garcia MD Primary Care Physician [phone] [facility]s): 11/02/22 - 11/09/22 [facility] Oli Adult [address] [place] [address]- Attending Physician: Bebo Garcia MD Allergies, Adverse Reactions, Alerts Substance Reaction Severity Status Lipitor Active chlorhexidine containing compounds Active NSAIDs GI UPSET Active Immunizations Given and Recorded Vaccine Date Status Refusal Reason pneumococcal 20-valent conjugate vaccine 11/02/22 Given [id number] bivalent booster vax 12/16/21 Recorded influenza virus [...] [facility] [place] [facility] 2Result Comment: [03/09/2016] [facility] pharmacy 3Location History: [facility] 4Admin Note: per pt historical data rcvd here Medications amLODIPine 5 mg oral tablet 5 mg, 1, tablet, By Mouth, Daily, # 90 tablet, Refills 3, Tot. Refills 3, Maintenance, 08/27/22 7:39:00 EDT, Route to Pharmacy Electronically, [facility], Partial fill upon patient [...] Refills, Maintenance, 11/02/22 12:13:00 EDT, Cream, [facility]/pharmacy #[id number], Partial fill upon patient [...] tablet, 3 Refills, Maintenance, 08/27/22 7:39:00 EDT, [facility], 156, cm, 08/04/22 9:08:00 EDT, [...] oldest [Reference Range]: 1 Height 156 cm (11/02/22 11:22 AM) Weight 56.5 kg (11/02/22 11:22 AM) Oxygen Saturation [94-100 %] 97 % (11/02/22 11:22 AM) Pulse Rate [55-90 bpm] 73 bpm (11/02/22 11:22 AM) Body Mass Index [18.5-24.99 kg/m2] 23.22 kg/m2 (11/02/22 11:22 AM) Blood Pressure [90-138/55-84 mm Hg] 122/ 80mm Hg (11/02/22 11:22 AM) Mode of Delivery (Oxygen) Room air (11/02/22 11:22 AM) Blood pressure sites Arm, left (11/02/22 11:22 AM) Weight Obtained Via Standing scale (11/02/22 11:22 AM) Social History Social History Type Response Smoking Status Former smoker entered on: 01/17/13 Sex Patient Care team information Care Team Personnel Name: Radha ACEVES, Bebo Reed Position: S Physician - Primary Care Member Role: PCP Address: Address: [address] [place] [address]- Name: Kelsy Cyr RN Position: S RN Member Role: Primary Care Nurse Name: Beena Mack [place] Position: S Onco RN Member Role: Primary Care Nurse Care Team Related Persons Name: RACHEL MANCIA Address: home [address] [place] [id number]
--- OUTSIDE RECORDS SUMMARY | 2023-08-01 10:04 | XMS_ITS | Continuity of Care Document ---
Author Organization [facility] Chris Baird Karson lt Address [address] [place] [address]- Care Team Providers Care Manager Education Name Role Phone Bebo Garcia MD Primary Care Physician [facility]): 05/06/21 - 05/13/21 [facility] Chris Baird Adult [address] [place] [address]- Attending Physician: Bebo Garcia MD Allergies, Adverse [...] Comment: [03/09/2016] [facility] 3Location History: [facility] 4Admin Note: per pt historical data rcvd here Medications Lashawn By Mouth, 0 Refills, Maintenance, 07/06/16 14:19:02 Start Date: 07/06/16 Status: Ordered amLODIPine 2.5 mg oral tablet See Instructions, TAKE THREE TABLETS BY MOUTH EVERY DAY, # 90 tablet, 11 Refills, Maintenance, 11/10/20 11:12:00 EDT, [facility], 157.2, cm, 10/29/20 10:40:00 EDT, Height, [...] 10/19/19 12:44:00 EDT, Route to Pharmacy Electronically, [facility] # [facility], 157.2, cm, 04/20/19 9:37:00 [...] 3 Refills, Maintenance, 12/12/20 16:02:00 EDT, Tablet, [facility], Partial fill upon patient request [...] oldest [Reference Range]: 1 Height 157.2 cm (05/06/21 2:26 PM) Weight 57.1 kg (05/06/21 2:26 PM) Oxygen Saturation [94-100 %] 98 % (05/06/21 2:26 PM) Pulse Rate [55-90 bpm] 91 bpm *H* (05/06/21 2:26 PM) Body Mass Index [18.5-24.99] 23.11 (05/06/21 2:26 PM) Blood Pressure [90-138/55-84 mm Hg] 161/ 76mm Hg *H* (05/06/21 2:26 PM) Mode of Delivery (Oxygen) Room air (05/06/21 2:26 PM) Blood pressure sites Arm, left (05/06/21 2:26 PM) Weight Obtained Via Standing scale (05/06/21 2:26 PM) Social History Social History Type Response Smoking Status Former smoker entered on: 02/04/14 Sex Female
--- OUTSIDE RECORDS SUMMARY | 2023-08-01 10:04 | XMS_ITS | Continuity of Care Document ---
Author Organization [facility] ter Address [address] [place] [address]- Care Team Providers Care Senior Software Test Engineer Name Role Phone Bebo Garcia MD Primary Care Physician [phone] [facility]s): 08/19/20 - 08/19/[address] [address]- Discharge Disposition: A-D/C Home Attending Physician: Jose Meadows MD Admitting Physician: Jose Meadows MD Referring Physician: Jose Meadows MD Allergies, Adverse Reactions, Alerts Substance Reaction [...] 02/25/20 9:21:00 EST, Route to Pharmacy Electronically, [facility], 157.2, cm, 01/11/20 [...] 10/19/19 12:44:00 EDT, Route to Pharmacy Electronically, [facility] # [facility], 157.2, cm, 04/20/19 [...] to oldest [Reference Range]: 1 2 3 Weight 56.2 kg (08/19/20 8:08 AM) Oxygen Saturation [94-100 %] 95 % (08/19/20 10:15 AM) 96 % (08/19/20 10:00 AM) 99 % (08/19/20 8:20 AM) Pulse Rate [55-90 bpm] 62 bpm (08/19/20 8:08 AM) Blood Pressure [90-138/55-84 mm Hg] 138/71mm Hg (08/19/20 10:15 AM) 155/65mm Hg *H* (08/19/20 10:00 AM) 124/61mm Hg (08/19/20 8:20 AM) Respiratory Rate [16-30 br/min] 12 br/min *L* (08/19/20 10:15 AM) 20 br/min (08/19/20 10:00 AM) 18 br/min (08/19/20 8:08 AM) Temperature [96.8-100.4 DegF] 97.6 DegF (08/19/20 10:15 AM) 98.1 DegF (08/19/20 10:00 AM) 97.2 DegF (08/19/20 8:08 AM) Liters per Minute 2 L/min (08/19/20 8:20 AM) 2 L/min (08/19/20 8:15 AM) 2 L/min (08/19/20 8:05 AM) Mode of Delivery (Oxygen) Room air (08/19/20 10:15 AM) Room air (08/19/20 10:00 AM) Nasal cannula (08/19/20 8:20 AM) Blood pressure sites Arm, left (08/19/20 8:08 AM) Arm, right (08/19/20 7:55 AM) Temperature Route Temporal (08/19/20 10:15 AM) Temporal (08/19/20 10:00 AM) Temporal (08/19/20 8:08 AM) Dry Weight 56.2 kg (08/19/20 8:08 AM) Weight Obtained Via Standing scale (08/19/20 8:08 AM) Dry Weight Obtained Via Standing scale (08/19/20 8:08 AM) Social History Social History Type Response Smoking Status Former smoker entered on: 02/04/14 Sex Female
--- OUTSIDE RECORDS SUMMARY | 2023-08-01 10:04 | XMS_ITS | Continuity of Care Document ---
Author Organization [facility] Karson lt Address [address] [place] [address]- Care Team Providers Care Fire Extinguisher Tester Name Role Phone Radha ACEVES, Bebo Reed Primary Care Physician [facility](s): 08/10/22 - 09/09/22 [facility] Adult [address] [place] [address]- Allergies, Adverse Reactions, Alerts Substance Reaction Severity Status Lipitor Active chlorhexidine containing compounds Active NSAIDs GI UPSET Active Immunizations Given and Recorded Vaccine Date Status Refusal Reason [id number] bivalent booster vax 12/16/21 Recorded influenza virus [...] [facility] [place] [facility] 2Result Comment: [03/09/2016] [facility] 3Location History: [facility] 4Admin Note: per pt historical data rcvd here Medications amLODIPine 5 mg oral tablet 5 mg, 1, tablet, By Mouth, Daily, # 90 tablet, Refills 3, Tot. Refills 3, Maintenance, 08/27/22 7:39:00 EDT, Route to Pharmacy Electronically, [facility], Partial fill upon patient [...] tablet, 3 Refills, Maintenance, 08/27/22 7:39:00 EDT, [facility], [facility], cm, 08/04/22 9:08:00 EDT, Height, [...] Personnel Name: Radha ACEVES, Bebo Reed Position: [facility] Physician - Primary Care Member Role: PCP Address: Address: [address] [place] [address]- Name: Ger HARRIS, Kelsy Position: S RN Member Role: Primary Care Nurse Name: Beena Mack [place] Position: [facility] Onco RN Member Role: Primary Care Nurse Care Team Related Persons Name: RACHEL MANCIA Address: home [address] [place] [address]
--- OUTSIDE RECORDS SUMMARY | 2023-08-01 10:04 | XMS_ITS | Continuity of Care Document ---
Author Organization [facility] Oli Karson lt Address [address] [place] [address]- Care Team Providers Care Swing Manager Name Role Phone Bebo Garcia MD Primary Care Physician [facility]counter [facility] Date(s): 09/10/21 - 09/17/21 [facility] [place] Adult [address] [place] [address]- Encounter Diagnosis Meningioma(Discharge Diagnosis) - 09/10/21 Attending Physician: Laura Lang Referring Physician: Bebo Garcia MD Allergies, Adverse [...] toxoids (Td) 05/22/97 Given 1Result Comment: [11/05/2016] [facility] [place] [facility] 2Result Comment: [03/09/2016] [facility] 3Location History: [facility] 4Admin Note: per pt historical data rcvd here Medications Lashawn By Mouth, 0 Refills, Maintenance, 07/06/16 14:19:02 Start Date: 07/06/16 Status: Ordered amLODIPine 2.5 mg oral tablet See Instructions, TAKE THREE TABLETS BY MOUTH EVERY DAY, # 90 tablet, 11 Refills, Maintenance, 11/10/20 11:12:00 EDT, Pharmacy, 157.2, cm, 10/29/20 10:40:00 EDT, Height, [...] 3 Refills, Maintenance, 12/12/20 16:02:00 EDT, Tablet, Pharmacy, Partial fill upon patient request if [...] Diagnosis Diagnosis Type Effective Dates Health Status Clini nir Service Informant Meningioma Discharge Diagnosis 09/10/21 Vital Signs Most recent to oldest [Reference Range]: 1 Height 157 cm (09/10/21 9:46 AM) Weight 56.3 kg (09/10/21 9:46 AM) Oxygen Saturation [94-100 %] 99 % (09/10/21 9:46 AM) Pulse Rate [55-90 bpm] 63 bpm (09/10/21 9:46 AM) Body Mass Index [18.5-24.99] 22.84 (09/10/21 9:46 AM) Blood Pressure [90-138/55-84 mm Hg] 138/ 61mm Hg (09/10/21 9:46 AM) Temperature [96.8-100.4 DegF] 97.8 DegF (09/10/21 9:46 AM) Blood pressure sites Arm, left (09/10/21 9:46 AM) Temperature Route Temporal (09/10/21 9:46 AM) Weight Obtained Via Standing scale (09/10/21 9:46 AM) Social History Social History Type Response Smoking Status Former smoker entered on: 01/17/13 Sex
--- OUTSIDE RECORDS SUMMARY | 2023-08-01 10:04 | XMS_ITS | Continuity of Care Document ---
Author Organization [facility] Address [address] [place] [address] [address], [address] [place] [address]- Care Team Providers Care Home Health Care Social Worker Name Role Phone Radha ACEVES, Bebo Reed Primary Care Physician [facility](s): 07/15/21 - 10/08/[address], [address] [place], [place] [address] Attending Physician: Jorden Mae MD Referring Physician: Bebo Garcia MD Allergies, [...] toxoids (Td) 05/22/97 Given 1Result Comment: [11/05/2016] [facility] [place] [facility] 2Result Comment: [03/09/2016] [facility] 3Location History: [facility] 4Admin Note: per pt historical data rcvd here Medications Lashawn By Mouth, 0 Refills, Maintenance, 07/06/16 14:19:02 Start Date: 07/06/16 Status: Ordered amLODIPine 2.5 mg oral tablet See Instructions, TAKE THREE TABLETS BY MOUTH EVERY DAY, # 90 tablet, 11 Refills, Maintenance, 11/10/20 11:12:00 EDT, [facility], 157.2, cm, 10/29/20 10:40:00 EDT, [...] Refills, Maintenance, 12/12/20 16:02:00 EDT, Tablet, [facility], Partial fill upon patient [...]
--- OUTSIDE RECORDS SUMMARY | 2023-08-01 10:04 | XMS_ITS | Continuity of Care Document ---
Author Organization [facility] Address [address] [place] [address] christa, [address] [place] [address]- Care Team Providers Care Mold Preparer Name Role Phone Radha ACEVES, Bebo Reed Primary Care Physician [facility] 01/12/22 - 01/19/[address], [address] [place], [place] [address] Attending Physician: Not on Staff, Attending MD [...] (Td) 05/22/97 Given 1Result Comment: [11/05/2016] [facility] [place] [facility] 2Result Comment: [03/09/2016] [facility] 3Location History: [facility] 4Admin Note: per pt historical data rcvd here Medications amLODIPine 5 mg oral tablet 5 mg, 1, tablet, By Mouth, Daily, # 90 tablet, Refills 3, Tot. Refills 3, Maintenance, 10/30/21 11:26:00 EDT, [facility] to [facility], Partial fill upon patient request [...] tablet, 1 Refills, Maintenance, 11/08/21 19:06:00 EDT, [facility], 156, cm, 10/30/21 [...] oldest [Reference Range]: 1 Height 156 cm (01/12/22 2:20 PM) Weight 56 kg (01/12/22 2:20 PM) Body Mass Index [18.5-24.99 kg/m2] 23.01 kg/m2 (01/12/22 2:20 PM) Social History Social History Type Response Smoking Status Former smoker entered on: 01/17/13 Sex Patient Care team information Care Team Personnel Name: Bebo Garcia MD Position: [facility] Primary Care Physician Member Role: PCP Address: Address: [address] [place] [address]- Name: Kelsy Cyr RN Position: S RN Member Role: Primary Care Nurse Name: Beena Mack [place] Position: [facility] Onco RN Member Role: Primary Care Nurse Care Team Related Persons Name: RACHEL MANCIA Address: home [address] [place] [address]
--- OUTSIDE RECORDS SUMMARY | 2023-08-01 10:04 | XMS_ITS | Continuity of Care Document ---
Author Organization [facility] Chris Baird Karson lt Address [address] [place] [address]- Care Team Providers Care Pet Technologist Name Role Phone Bebo Garcia MD Primary Care Physician Encounter [facility] Date(s): 10/09/21 - 11/08/21 [facility] Adult [address] [place] [address]- Allergies, Adverse Reactions, Alerts Substance Reaction Severity [...] toxoids (Td) 05/22/97 Given 1Result Comment: [11/05/2016] [facility] [place] 2Result Comment: [03/09/2016] [facility] 3Location History: [facility] 4Admin Note: per pt historical data rcvd here Medications amLODIPine 5 mg oral tablet 5 mg, 1, tablet, By Mouth, Daily, # 90 tablet, Refills 3, Tot. Refills 3, Maintenance, 10/30/21 11:26:00 EDT, Route to Pharmacy Electronically, [facility], Partial fill upon patient [...] Team Personnel Name: Bebo Garcia MD Address: [address] [place] [address] [place] [address]-
--- OUTSIDE RECORDS SUMMARY | 2023-08-01 10:04 | XMS_ITS | Continuity of Care Document ---
Author Organization [facility] Karson lt Address [address] [place] [address]- Care Team Providers Care Counter Weigher Name Role Phone Radha ACEVES, Bebo Reed Primary Care Physician Encounter [facility] Date(s): 08/25/22 - 09/24/22 [facility] Adult [address] [place] [address]- Allergies, Adverse Reactions, Alerts Substance Reaction Severity Status Lipitor Active chlorhexidine containing compounds Active NSAIDs GI UPSET Active Immunizations Given and Recorded Vaccine Date Status Refusal Reason [id number] bivalent booster vax 12/16/21 Recorded influenza virus [...] toxoids (Td) 05/22/97 Given 1Result Comment: [11/05/2016] [facility] [place] 2Result Comment: [03/09/2016] [facility] pharmacy 3Location History: [facility] 4Admin Note: per pt historical data rcvd here Medications amLODIPine 5 mg oral tablet 5 mg, 1, tablet, By Mouth, Daily, # 90 tablet, Refills 3, Tot. Refills 3, Maintenance, 08/27/22 7:39:00 EDT, Route to Pharmacy Electronically, [facility], Partial fill upon patient request [...] tablet, 3 Refills, Maintenance, 08/27/22 7:39:00 EDT, [facility], [facility], cm, 08/04/22 9:08:00 EDT, Height, [...] Primary Care Member Role: PCP Address: Address: [address] [place] [address]- Name: Ger HARRIS, Kesly Position: S RN Member Role: Primary Care Nurse Name: Beena Mack [place] Position: [facility] Onco RN Member Role: Primary Care Nurse Care Team Related Persons Name: RACHEL MANCIA Address: home [address] [place] [address]
--- OUTSIDE RECORDS SUMMARY | 2023-08-01 10:04 | XMS_ITS | Continuity of Care Document ---
Author Organization [facility] Oli Karson lt Address [address] [place] [address]- Care Team Providers Care Optometric Technologist Name Role Phone Bebo Garcia MD Primary Care Physician [facility]s): 08/04/21 - 08/11/21 [facility] Adult [address] [place] [address]- Encounter Diagnosis Diarrhea(Discharge Diagnosis) - 08/04/21 Attending Physician: Daniella Valenzuela NP Referring Physician: Bebo Garcia MD Allergies, [...] toxoids (Td) 05/22/97 Given 1Result Comment: [11/05/2016] [facility] [place] [facility] 2Result Comment: [03/09/2016] [facility] 4Admin Note: per pt historical data rcvd here Medications Lashawn By Mouth, 0 Refills, Maintenance, 07/06/16 14:19:02 Start Date: 07/06/16 Status: Ordered amLODIPine 2.5 mg oral tablet See Instructions, TAKE THREE TABLETS BY MOUTH EVERY DAY, # 90 tablet, 11 Refills, Maintenance, 11/10/20 11:12:00 EDT, [facility], 157.2, cm, 10/29/20 10:40:00 [...] 10/19/19 12:44:00 EDT, Route to Pharmacy Electronically, [facility] # [facility], 157.2, cm, 04/20/19 9:37:00 [...] 16:02:00 EDT, Tablet, [facility], Partial fill upon patient [...] Dates Health Status Clini nir Service Informant Diarrhea Discharge Diagnosis 08/04/21 Vital Signs Most recent to oldest [Reference Range]: 1 Height 157.2 cm (08/04/21 9:47 AM) Social History Social History Type Response Smoking Status Former smoker entered on: 01/17/13 Sex Female
--- OUTSIDE RECORDS SUMMARY | 2023-08-01 10:05 | XMS_ITS | Continuity of Care Document ---
Author Organization [facility] Address [address] [place] [address]- Care Team Providers Care Litigation Attorney Name Role Phone Bebo Garcia MD Primary Care Physician Encounter 12/19/18 - 02/12/19 [facility] [address], [address] [place] [address]- [phone] Attending Physician: Bebo Garcia MD Admitting Physician: [...] Maintenance, 08/08/1911:20:04 EDT, Route to Pharmacy Electronically, [id number], [facility] Start Date: [...] Exam Date Time Procedure Performing Provider Status 12/19/18 10:54 AM Sinuses Comp Min 3 Views Wen Hopkins; Auth (Verified) Notes: (Sinuses Comp Min 3 Views) Reason For Exam: Pain RESULT: Sinuses Comp Min 3 Views Paranasal sinuses 3 views dated December 19, 2018. No prior studies are available. HISTORY: Pain. FINDINGS: The paranasal sinuses are well aerated. No mucosal thickening, mass lesion or air-fluid level is identified. The bony nasal septum is deviated to the left. IMPRESSION: Mild nasal septal deviation. No evidence of acute or chronic sinusitis. Examination [address]. Thank you for allowing me to participate in the care of this patient. WSN: [id number] Dictated By: Parish Cheng MD Dictated Date/Time: 12/19/18 2:04 pm Reviewed By: Parish Cheng MD Signed By: Parish Cheng MD Signed Date/Time: 12/19/18 2:04 pm Transcribed By: ALLISON Transcribed Date/Time: 12/19/18 2:04 pm * Exam Date Time Procedure Performing Provider Status 12/19/18 10:54 AM Chest 2 Views Frontal and Lat Lenore Hopkins; Auth (Verified) Notes: (Chest 2 Views Frontal and Lat) Reason For Exam: Cough RESULT: Chest 2 Views Frontal and Lat Chest 2 Views Frontal and Lat INDICATION/CLINICAL QUESTION: Cough COMPARISON: 11/05/2016. FINDINGS: LINES AND TUBES: None. LUNGS AND PLEURA: Clear lungs. Normal pulmonary vascularity. No pleural effusion. No pneumothorax. HEART, MEDIASTINUM AND TRESSA: Heart is normal in size. Normal mediastinal and hilar contour. BONES AND SOFT TISSUES: No acute abnormality. IMPRESSION: No acute abnormality. WSN: [id number] Dictated By: Arturo Bang MD Dictated Date/Time: 12/19/18 1:16 pm Reviewed By: Arturo Bang MD Signed By: Arturo Bang MD Signed Date/Time: 12/19/18 1:16 pm Transcribed By: ALLISON Transcribed Date/Time: 12/19/18 1:13 pm Social History Social History Type Response Smoking Status Former smoker entered on: 02/04/14 Sex Female
--- OUTSIDE RECORDS SUMMARY | 2023-08-01 10:05 | XMS_ITS | Continuity of Care Document ---
Author Organization [facility] Address [address] [place] [address] christa, [address] [place] [address]- Care Team Providers Care Eyelet Punch Operator Name Role Phone Radha ACEVES, Bebo Reed Primary Care Physician [phone] [facility](s): 08/18/21 - 08/25/[address], [address] [place], [place] [address] Attending Physician: Jorden Mae MD Referring Physician: [...] [facility] 3Location History: [facility] 4Admin Note: per pt historical data rcvd here Medications Lashawn By Mouth, 0 Refills, Maintenance, 07/06/16 14:19:02 Start Date: 07/06/16 Status: Ordered amLODIPine 2.5 mg oral tablet See Instructions, TAKE THREE TABLETS BY MOUTH EVERY DAY, # 90 tablet, 11 Refills, Maintenance, 11/10/20 11:12:00 EDT, [facility], 157.2, cm, 10/29/20 10:40:00 EDT, Height, [...] oldest [Reference Range]: 1 Height 157.2 cm (08/18/21 8:02 AM) Weight 55.0 kg (08/18/21 8:02 AM) Body Mass Index [18.5-24.99] 22.26 (08/18/21 8:02 AM) Dry Weight 55.0 kg (08/18/21 8:02 AM) Weight Obtained Via Patient/family state d (08/18/21 8:02 AM) Dry Weight Obtained Via Patient/family s tated (08/18/21 8:02 AM) Social History Social History Type Response Smoking Status Former smoker entered on: 01/17/13 Sex Female
--- OUTSIDE RECORDS SUMMARY | 2023-08-01 10:05 | XMS_ITS | Continuity of Care Document ---
Author Organization [facility] Oli Karson lt Address [address] [place] [address]- Care Team Providers Care Rail Specialist Name Role Phone Bebo Garcia MD Primary Care Physician [facility]): 10/19/19 - 11/18/19 [facility] Oli Adult [address] [place] [address]- [place] Allergies, Adverse Reactions, Alerts Substance Reaction Severity [...] 08/22/19 12:56:00 EDT, Route to Pharmacy Electronically, [facility] # [facility], 157.2, [...] 10/19/19 12:44:00 EDT, Route to Pharmacy Electronically, [facility] # [facility], 157.2, [...]
--- OUTSIDE RECORDS SUMMARY | 2023-08-01 10:05 | XMS_ITS | Continuity of Care Document ---
Author Organization [facility] Chris Baird Karson lt Address [address] [place] [address]- Care Team Providers Care Hospice Clinical Manager Name Role Phone Bebo Garcia MD Primary Care Physician Encounter [facility] Date(s): 10/12/21 - 11/11/21 [facility] Oli Adult [address] [place] [address]- Allergies, Adverse Reactions, Alerts Substance Reaction Severity [...] toxoids (Td) 05/22/97 Given 1Result Comment: [11/05/2016] [facility] [place] 2Result Comment: [03/09/2016] [facility] 3Location History: [facility] 4Admin Note: per pt historical data rcvd here Medications amLODIPine 5 mg oral tablet 5 mg, 1, tablet, By Mouth, Daily, # 90 tablet, Refills 3, Tot. Refills 3, Maintenance, 10/30/21 11:26:00 EDT, Route to Pharmacy Electronically, [facility], Partial fill [...] Refills, Maintenance, 11/08/21 19:06:00 EDT, [facility], 156, cm, 10/30/21 [...] Team Personnel Name: Bebo Garcia MD Address: [address] [place] [address] [place] [address]-
--- OUTSIDE RECORDS SUMMARY | 2023-08-01 10:05 | XMS_ITS | Continuity of Care Document ---
Author Organization [facility] Chris Baird Karson lt Address [address] [place] [address]- Care Team Providers Care State Federal Relations Deputy Director Name Role Phone Bebo Garcia MD Primary Care Physician Encounter [facility] Date(s): 12/09/22 - 01/08/23 [facility] Oli Adult [address] [place] [address]- Allergies, Adverse Reactions, Alerts Substance Reaction Severity Status Lipitor Active chlorhexidine containing compounds Active NSAIDs GI UPSET Active Immunizations Given and Recorded Vaccine Date Status Refusal Reason pneumococcal 20-valent conjugate vaccine 11/02/22 Given [id number] bivalent booster vax 12/16/21 Recorded influenza virus [...] toxoids (Td) 05/22/97 Given 1Result Comment: [11/05/2016] [facility] [place] 2Result Comment: [03/09/2016] [facility] 3Location [facility] 4Admin Note: per pt historical data rcvd here Medications amLODIPine 5 mg oral tablet 5 mg, 1, tablet, By Mouth, Daily, # 90 tablet, Refills 3, Tot. Refills 3, Maintenance, 08/27/22 7:39:00 EDT, Route to Pharmacy Electronically, [facility], Partial fill upon patient [...] 0 Refills, Maintenance, 11/02/22 12:13:00 EDT, Cream, [facility]/pharmacy #[id number], Partial fill upon patient request if the [...] tablet, 3 Refills, Maintenance, 08/27/22 7:39:00 EDT, [facility], 156, cm, 08/04/22 9:08:00 [...] Team Personnel Name: Bebo Garcia MD Position: [facility] Physician - Primary Care Member Role: PCP Address: Address: [address] [place] [address]- Name: Kelsy Cyr RN Position: [facility] RN Member Role: Primary Care Nurse Name: Beena Mack [place] Position: [facility] Onco RN Member Role: Primary Care Nurse Care Team Related Persons Name: RACHEL MANCIA Address: [address] [place] [address]
--- OUTSIDE RECORDS SUMMARY | 2023-08-01 10:05 | XMS_ITS | Continuity of Care Document ---
Author Organization [facility] Chris Baird Karson lt Address [address] [place] [address]- Care Team Providers Care Digital Coordinator Name Role Phone Bebo Garcia MD Primary Care Physician Encounter [facility] Date(s): 10/26/22 - 11/25/22 [facility] Chris Baird Adult [address] [place] [address]- Allergies, Adverse Reactions, Alerts Substance Reaction Severity Status Lipitor Active chlorhexidine containing compounds Active NSAIDs GI UPSET Active Immunizations Given and Recorded Vaccine Date Status Refusal Reason pneumococcal 20-valent conjugate vaccine 11/02/22 Given [id number] bivalent booster vax 12/16/21 Recorded influenza virus [...] toxoids (Td) 05/22/97 Given 1Result Comment: [11/05/2016] [facility] [place] 2Result Comment: [03/09/2016] [facility] 3[facility] 4Admin Note: per pt historical data rcvd here Medications amLODIPine 5 mg oral tablet 5 mg, 1, tablet, By Mouth, Daily, # 90 tablet, Refills 3, Tot. Refills 3, Maintenance, 08/27/22 7:39:00 EDT, Route to Pharmacy Electronically, [facility], Partial fill upon patient request [...] 0 Refills, Maintenance, 11/02/22 12:13:00 EDT, Cream, [facility]/pharmacy #[id number], Partial fill upon patient request if the [...] tablet, 3 Refills, Maintenance, 08/27/22 7:39:00 EDT, [facility], 156, cm, 08/04/22 9:08:00 EDT, [...] Team Personnel Name: Bebo Garcia MD Position: [facility] Physician - Primary Care Member Role: PCP Address: Address: [address] [place] [address]- Name: Kelsy Cyr RN Position: [facility] RN Member Role: Primary Care Nurse Name: Beena Mack [place] Position: [facility] Onco RN Member Role: Primary Care Nurse Care Team Related Persons Name: RACHEL MANCIA Address: [address] [place] [address]
--- OUTSIDE RECORDS SUMMARY | 2023-08-01 10:05 | XMS_ITS | Continuity of Care Document ---
Author Organization [facility] Chris Baird Karson lt Address [address] [place] [address]- Care Team Providers Care Apple Sorter Name Role Phone Bebo Garcia MD Primary Care Physician [phone] Encounter [facility] Date(s): 03/04/23 - 04/03/23 [facility] Chris Baird Adult [address] [place] [address]- Allergies, Adverse Reactions, Alerts Substance Reaction Severity Status Lipitor Active chlorhexidine containing compounds Active NSAIDs GI UPSET Active Immunizations Given and Recorded Vaccine Date Status Refusal Reason pneumococcal 20-valent conjugate vaccine 11/02/22 Given [id number] bivalent booster vax 12/16/21 Recorded influenza virus [...] [place] 2Result Comment: [03/09/2016] [facility] 3[facility] 4Admin Note: per pt historical data rcvd here Medications amLODIPine 5 mg oral tablet 5 mg, 1, tablet, By Mouth, Daily, # 90 tablet, Refills 3, Tot. Refills 3, Maintenance, 08/27/22 7:39:00 EDT, Route to Pharmacy Electronically, [facility], Partial fill upon patient request [...] 0 Refills, Maintenance, 11/02/22 12:13:00 EDT, Cream, [facility]/pharmacy #[id number], Partial fill upon patient request if the [...] tablet, 3 Refills, Maintenance, 08/27/22 7:39:00 EDT, [facility], 156, cm, 08/04/22 9:08:00 [...] Team Personnel Name: Bebo Garcia MD Position: [facility] Physician - Primary Care Member Role: PCP Address: Address: [address] [place] [address]- Name: Kelsy Cyr RN Position: [facility] RN Member Role: Primary Care Nurse Name: Beena Mack [place] Position: [facility] Onco RN Member Role: Primary Care Nurse Care Team Related Persons Name: RACHEL MANCIA Address: [address] [place] [address]
--- OUTSIDE RECORDS SUMMARY | 2023-08-01 10:05 | XMS_ITS | Continuity of Care Document ---
Author Organization [facility] Chris Baird Karson lt Address [address] [place] [address]- Care Team Providers Care Barn Worker Name Role Phone Bebo Garcia MD Primary Care Physician Encounter [facility] Date(s): 07/07/21 - 08/06/21 [facility] Oli Adult [address] [place] [address]- Allergies, Adverse Reactions, Alerts Substance Reaction Severity [...] toxoids (Td) 05/22/97 Given 1Result Comment: [11/05/2016] [facility] [place] 2Result Comment: [03/09/2016] [facility] 3[facility] 4Admin Note: per pt historical data rcvd here Medications Lashawn By Mouth, 0 Refills, Maintenance, 07/06/16 14:19:02 Start Date: 07/06/16 Status: Ordered amLODIPine 2.5 mg oral tablet See Instructions, TAKE THREE TABLETS BY MOUTH EVERY DAY, # 90 tablet, 11 Refills, Maintenance, 11/10/20 11:12:00 EDT, [facility], 157.2, cm, 10/29/20 10:40:00 [...] 10/19/19 12:44:00 EDT, Route to Pharmacy Electronically, [facility] # [facility], 157.2, cm, 04/20/19 9:37:00 [...] 3 Refills, Maintenance, 12/12/20 16:02:00 EDT, Tablet, [facility], Partial fill upon patient [...]
--- OUTSIDE RECORDS SUMMARY | 2023-08-01 10:05 | XMS_ITS | Continuity of Care Document ---
Author Organization [facility] Chris Baird Karson lt Address [address] [place] [address]- Care Team Providers Care Nutrition Partner Name Role Phone Bebo Garcia MD Primary Care Physician Encounter [facility] Date(s): 09/17/21 - 10/17/21 [facility] Chris Baird Adult [address] [place] [address]- Allergies, Adverse Reactions, Alerts Substance Reaction Severity [...] Nima rded influenza virus vaccine, inactivated 11/28/18 Niam rded influenza virus vaccine, inactivated 11/14/17 Nima [...] 3 Refills, Maintenance, 12/12/20 16:02:00 EDT, Tablet, [facility], Partial [...] Personnel Name: Radha ACEVES, Bebo Reed Address: [address] [place] [id number]
--- OUTSIDE RECORDS SUMMARY | 2023-08-01 10:05 | XMS_ITS | Continuity of Care Document ---
Author Organization [facility] Chris Baird Karson lt Address [address] [place] [address]- Care Team Providers Care [place] Pumper Name Role Phone Bebo Garcia MD Primary Care Physician Encounter [facility] Date(s): 09/30/22 - 10/07/22 [facility] Oli Adult [address] [place] [address]- Encounter Diagnosis Hematuria(Discharge Diagnosis) - 09/30/22 Attending Physician: Laura Lang Allergies, Adverse Reactions, Alerts Substance Reaction Severity Status Lipitor Active chlorhexidine containing compounds Active NSAIDs GI UPSET Active Immunizations Given and Recorded Vaccine Date Status Refusal Reason [id number] bivalent booster vax 12/16/21 Recorded influenza virus [...] ecorded SARS-CoV-2 (COVID-19) mRNA-1273 vaccine 04/20/20 G rimaen SARS-CoV-2 (COVID-19) mRNA-1273 vaccine 04/20/20 R ecorded [...] [facility]OS[facility]ITAL [place] 2Result Comment: [03/09/2016] [facility] 3Location History: [facility] 4Admin Note: per pt historical data rcvd here Medications amLODIPine 5 mg oral tablet 5 mg, 1, tablet, By Mouth, Daily, # 90 tablet, Refills 3, Tot. Refills 3, Maintenance, 08/27/22 7:39:00 EDT, Route to Pharmacy Electronically, [facility], Partial fill upon [...] Dates Health Status Clini nir Service Informant Hematuria Discharge Diagnosis 09/30/22 Vital Signs Most recent to oldest [Reference Range]: 1 Height 156 cm (09/30/22 10:05 AM) Weight 56.7 kg (09/30/22 10:05 AM) Oxygen Saturation [94-100 %] 100 % (09/30/22 10:05 AM) Pulse Rate [55-90 bpm] 72 bpm (09/30/22 10:05 AM) Body Mass Index [18.5-24.99 kg/m2] 23.3 kg/m2 (09/30/22 10:05 AM) Blood Pressure [90-138/55-84 mm Hg] 137/ 67mm Hg (09/30/22 10:05 AM) Respiratory Rate [16-30 br/min] 16 br/mi n (09/30/22 10:05 AM) Temperature [96.8-100.4 DegF] 98.1 DegF (09/30/22 10:05 AM) Mode of Delivery (Oxygen) Room air (09/30/22 10:05 AM) Blood pressure sites Arm, left (09/30/22 10:05 AM) Temperature Route Oral (09/30/22 10:05 AM) Weight Obtained Via Standing scale (09/30/22 10:05 AM) Social History Social History Type Response Smoking Status Former smoker entered on: 01/17/13 Sex Patient Care team information Care Team Personnel Name: Radha ACEVES, Bebo Reed Position: [facility] Physician - Primary Care Member Role: PCP Address: Address: [address] [place] [address]- Name: Kelsy Cyr RN Position: S RN Member Role: Primary Care Nurse Name: Beena Mack [place] Position: [facility] Onco RN Member Role: Primary Care Nurse Care Team Related Persons Name: RACHEL MANCIA Address: home [address] [place] [address]
--- OUTSIDE RECORDS SUMMARY | 2023-08-01 10:05 | XMS_ITS | Continuity of Care Document ---
Author Organization [facility] Address [address] [place] [address] christa, [address] [place] [address]- Care Team Providers Care Real Estate Job Titles Name Role Phone Radha ACEVES, Bebo Reed Primary Care Physician [phone] Encounter [facility] Date(s): 09/22/21 - 09/29/[address], [address] [place], [place] [address] Attending Physician: Jorden Mae MD Referring [...] [place] 2Result Comment: [03/09/2016] [facility] 3Location History: [facility] 4Admin Note: per pt historical data rcvd here Medications Lashawn By Mouth, 0 Refills, Maintenance, 07/06/16 14:19:02 Start Date: 07/06/16 Status: Ordered amLODIPine 2.5 mg oral tablet See Instructions, TAKE THREE TABLETS BY MOUTH EVERY DAY, # 90 tablet, 11 Refills, Maintenance, 11/10/20 11:12:00 EDT, [facility], 157.2, cm, 10/29/20 10:40:00 [...] 3 Refills, Maintenance, 12/12/20 16:02:00 EDT, Tablet, [facility], Partial fill upon patient [...] oldest [Reference Range]: 1 Height 157 cm (09/22/21 1:48 PM) Weight 56.3 kg (09/22/21 1:48 PM) Body Mass Index [18.5-24.99] 22.84 (09/22/21 1:48 PM) Social History Social History Type Response Smoking Status Former smoker entered on: 01/17/13 Sex
--- OUTSIDE RECORDS SUMMARY | 2023-08-01 10:05 | XMS_ITS | Continuity of Care Document ---
Author Organization [facility] Chris Baird Karson lt Address [address] [place] [address]- Care Team Providers Care Weaving Machine Operator Name Role Phone Bebo Garcia MD Primary Care Physician [phone] Encounter [facility] Date(s): 12/06/22 - 01/05/23 [facility] Chris Baird Adult [address] [place] [address]- Allergies, Adverse Reactions, Alerts Substance Reaction Severity Status Lipitor Active chlorhexidine containing compounds Active NSAIDs GI UPSET Active Immunizations Given and Recorded Vaccine Date Status Refusal Reason pneumococcal 20-valent conjugate vaccine 11/02/22 Given [id number] bivalent booster vax 12/16/21 Recorded influenza virus vaccine, inactivated 12/14/21 Nmia rded influenza virus vaccine, inactivated 11/18/20 Nima [...] toxoids (Td) 05/22/97 Given 1Result Comment: [11/05/2016] [facility] [place] 2Result Comment: [03/09/2016] [facility] 4Admin Note: per pt historical data rcvd here Medications amLODIPine 5 mg oral tablet 5 mg, 1, tablet, By Mouth, Daily, # 90 tablet, Refills 3, Tot. Refills 3, Maintenance, 08/27/22 7:39:00 EDT, Route to Pharmacy Electronically, [facility], Partial fill upon patient request if [...] 0 Refills, Maintenance, 11/02/22 12:13:00 EDT, Cream, [facility]/pharmacy #[id number], Partial fill upon patient request if the [...] 08/27/22 7:39:00 EDT, [facility], 156, cm, 08/04/22 9:08:00 [...] Personnel Name: Bebo Garcia MD Position: [facility] Physician - Primary Care Member Role: PCP Address: Address: [address] [place] [address]- Name: Kelsy Cyr RN Position: [facility] RN Member Role: Primary Care Nurse Name: Beena Mack [place] Position: [facility] Onco RN Member Role: Primary Care Nurse Care Team Related Persons Name: RACHEL MANCIA Address: [address] [place] [address]
--- OUTSIDE RECORDS SUMMARY | 2023-08-01 10:05 | XMS_ITS | Continuity of Care Document ---
Author Organization [facility] Address [address] [place] [address] christa, [address] [place] [address]- Care Team Providers Care Account Director Name Role Phone Radha ACEVES, Bebo Reed Primary Care Physician Encounter [facility] Date(s): 01/12/22 - 02/11/[address], [address] [place] [address]- Attending Physician: Yari Rivera Admitting Physician: AdmYari [...] (Td) 05/22/97 Given 1Result Comment: [11/05/2016] [facility] [place] 2Result Comment: [03/09/2016] [facility] 3Location History: [facility] 4Admin Note: per pt historical data rcvd here Medications amLODIPine 5 mg oral tablet 5 mg, 1, tablet, By Mouth, Daily, # 90 tablet, Refills 3, Tot. Refills 3, Maintenance, 10/30/21 11:26:00 EDT, [facility], Partial fill upon patient request [...] Personnel Name: Radha ACEVES, Bebo Reed Position: [facility] Primary Care Physician Member Role: PCP Address: Address: [address] [place] [id number]- Name: Kelsy Cyr RN Position: S RN Member Role: Primary Care Nurse Name: Beena Mack [place] Position: [facility] Onco RN Member Role: Primary Care Nurse Care Team Related Persons Name: APRYLLES RACHEL Address: [address] [place] [address]
--- OUTSIDE RECORDS SUMMARY | 2023-08-01 10:05 | XMS_ITS | Continuity of Care Document ---
Author Organization [facility] Chris Baird Karson lt Address [address] [place] [address]- Care Team Providers Care Principal Planner Name Role Phone Bebo Garcia MD Primary Care Physician [phone] Encounter [facility] Date(s): 08/11/21 - 08/18/21 [facility] Chris Baird Adult [address] [place] [address]- Attending Physician: Bebo Garcia MD Allergies, Adverse [...] (Td) 05/22/97 Given 1Result Comment: [11/05/2016] [facility] [place] 2Result Comment: [03/09/2016] [facility] 3Location History: [facility] 4Admin Note: per pt historical data [...] 12:44:00 EDT, Route to Pharmacy Electronically, [facility], 157.2, cm, 04/20/19 9:37:00 [...] [Reference Range]: 1 2 Height 157.2 cm (08/11/21 11:07 AM) 157.2 cm (08/11/21 11:03 AM) Weight 56.0 kg (08/11/21 11:03 AM) Oxygen Saturation [94-100 %] 98 % (08/11/21 11:03 AM) Pulse Rate [55-90 bpm] 70 bpm (08/11/21 11:03 AM) Body Mass Index [18.5-24.99] 22.66 (08/11/21 11:03 AM) Blood Pressure [90-138/55-84 mm Hg] 125/ 62mm Hg (08/11/21 11:07 AM) 132/73mm Hg (08/11/21 11:03 AM) Mode of Delivery (Oxygen) Room air (08/11/21 11:03 AM) Blood pressure sites Arm, left (08/11/21 11:07 AM) Arm, left (08/11/21 11:03 AM) Weight Obtained Via Standing scale (08/11/21 11:03 AM) Social History Social History Type Response Smoking Status Former smoker entered on: 01/17/13 Sex Female
--- OUTSIDE RECORDS SUMMARY | 2023-08-01 10:05 | XMS_ITS | Continuity of Care Document ---
Author Organization [facility] Chris Baird Karson lt Address [address] [place] [address]- Care Team Providers Care Packing House Supervisor Name Role Phone Bebo Garcia MD Primary Care Physician [phone] Encounter [facility] Date(s): 07/01/21 - 07/31/21 [facility] Chris Baird Adult [address] [place] [address]- Allergies, Adverse Reactions, Alerts Substance Reaction Severity [...] toxoids (Td) 05/22/97 Given 1Result Comment: [11/05/2016] [facility] [place] 2Result Comment: [03/09/2016] [facility] 4Admin Note: per pt historical data rcvd here Medications Lashawn By Mouth, 0 Refills, Maintenance, 07/06/16 14:19:02 Start Date: 07/06/16 Status: Ordered amLODIPine 2.5 mg oral tablet See Instructions, TAKE THREE TABLETS BY MOUTH EVERY DAY, # 90 tablet, 11 Refills, Maintenance, 11/10/20 11:12:00 EDT, [facility], 157.2, cm, 10/29/20 10:40:00 [...] 10/19/19 12:44:00 EDT, Route to Pharmacy Electronically, [facility], 157.2, cm, 04/20/19 9:37:00 [...]
--- OUTSIDE RECORDS SUMMARY | 2023-08-01 10:05 | XMS_ITS | Continuity of Care Document ---
Author Organization [facility] Oli Karson lt Address [address] [place] [address]- Care Team Providers Care Community Living Instructor Name Role Phone Bebo Garcia MD Primary Care Physician [phone] [facility]): [facility]22 - 11/02/22 [facility] Oli Adult [address] [place] [address]- Encounter Diagnosis Otitis media(Discharge Diagnosis) - 10/26/22 Attending Physician: Not on Staff, Attending MD Allergies, Adverse Reactions, Alerts Substance Reaction Severity Status Lipitor Active chlorhexidine containing compounds Active NSAIDs GI UPSET Active Immunizations Given and Recorded Vaccine Date Status Refusal Reason pneumococcal 20-valent conjugate vaccine 11/02/22 Given [id number] bivalent booster vax 12/16/21 Recorded influenza virus [...] toxoids (Td) 05/22/97 Given 1Result Comment: [11/05/2016] [facility] [place] [facility] 2Result Comment: [03/09/2016] [facility] 3Location History: [facility] 4Admin Note: per pt historical [...] 11/05/22 10:33:00 EDT, 10/26/22 10:33:00 EDT, Tablet, [facility]/pharmacy #[id number], Partial fill upon patient request if the [...] 0 Refills, Maintenance, 11/02/22 12:13:00 EDT, Cream, [facility]/pharmacy #[id number], Partial fill upon patient [...] Health Status Cl inical Service Informant Otitis media Discharge Diagnosis 10/26/22 Vital Signs Most recent to oldest [Reference Range]: 1 2 Height 156 cm (10/26/22 10:29 AM) 156 cm (10/26/22 10:20 AM) Weight 56.7 kg (10/26/22 10:20 AM) Oxygen Saturation [94-100 %] 97 % (10/26/22 10:20 AM) Pulse Rate [55-90 bpm] 78 bpm (10/26/22 10:20 AM) Body Mass Index [18.5-24.99 kg/m2] 23.3 kg/m2 (10/26/22 10:20 AM) Blood Pressure [90-138/55-84 mm Hg] 146/ 83mm Hg *H* (10/26/22 10:29 AM) 144/83mm Hg *H* (10/26/22 10:20 AM) Temperature [96.8-100.4 DegF] 97.4 DegF (10/26/22 10:20 AM) Blood pressure sites Arm, left (10/26/22 10:29 AM) Arm, left (10/26/22 10:20 AM) Temperature Route Oral (10/26/22 10:20 AM) Weight Obtained Via Standing scale (10/26/22 10:20 AM) Social History Social History Type Response Smoking Status Former smoker entered on: 01/17/13 Sex Note * Marleen Bryan: PERFORM, SIGN, VERIFY Event Display: Patient Education/Instruction Authored Date: [id number] [facility] *BMP So Oli Daigle Clinical Summary Name KASSIE MANCIA Age 71 Years 1950 PCP Radha ACEVES, Bebo Reed PCP Visit Date 10/26/2022 10:13:00 Additional Instructions: Scheduled Appointments?? Future Appointments ?*BMP??So??Oli??Adlt ?[address],??[place],??[address] ?Phone:??--?Fax:??-- ?Appt. Date:??11/02/2022?11:30 AM ?Scheduled Provider:??Radha ACEVES, Bebo Reed ?*[facility] ?Phone:??--?Fax:??-- ?Appt. Date:??01/11/2023?11:30 AM ?Scheduled Provider:??[facility] Follow-Up Instructions ?? Diagnosis Medications: Please continue your medications until treatment is completed or stopped by your provider. Discuss any questions related to medications with your provider. New Medications [id number], [id number] [place] [id number], [phone] Amoxicillin (amoxicillin 500 mg oral tablet) 1 tab(s) Oral 3 times a day for 10 Days. Refills: 0. Next Dose: Medications to Continue with No Changes These medications were not printed or sent to your pharmacy Amlodipine (amLODIPine 5 mg oral tablet) 1 tab(s) Oral Daily. Refills: 3. Next Dose: Aspirin (aspirin 81 mg oral tablet) 1 tab(s) Oral Daily. Next Dose: Calcium And Vitamin D Combination (Calcium 600+D oral tablet) 1 tab(s) Oral Daily. Next Dose: Ezetimibe (ezetimibe 10 mg oral tablet) 1 tab(s) Oral Daily. Refills: 3. Next Dose: Multivitamin 1 tab(s) Oral Daily. Next Dose: Allergy Info:?? NSAIDs; chlorhexidine containing compounds; Lipitor Medications Given This Visit Future Orders ?No future orders Vital Signs Height 156 cm Weight 56.7 kg BMI 23.3 kg/m2 Blood Pressure 146 mm Hg/83 mm Hg Temperature 97.4 DegF Pulse Rate 78 bpm Respiratory Rate 02 Sat Mode of Delivery 97 %/ You can now view a summary of your hospital visit from the comfort of your home through a free online portal called [employer]. [employer] is a website that allows you to securely view your medical information including discharge summary, medications and follow-up visits. ??You can alsosend a secure electronic message to your doctor???s office to request appointments, renew medications or just ask a question. You can enroll at [email or web address] or register during your next office visit. [...] primary care provider, you may find a [facility] provider by calling [facility] [employer] at [phone]. [facility], in keeping with [facility] guidance, no longer requires face masks for [...] Team Personnel Name: Bebo Garcia MD Position: [facility] Physician - Primary Care Member Role: PCP Address: Address: [address] [place] [address]- Name: Kelsy Cyr RN Position: S RN Member Role: Primary Care Nurse Name: Beena Mack [place] Position: [facility] Onco RN Member Role: Primary Care Nurse Care Team Related Persons Name: RACHEL MANCIA Address: [address] [address]
--- OUTSIDE RECORDS SUMMARY | 2023-08-01 10:06 | XMS_ITS | Continuity of Care Document ---
Author Organization [facility] Address [address] [place] [address] christa, [address] [place] [address]- Care Team Providers Care Senior Cost Analyst Name Role Phone Bebo Garcia MD Primary Care Physician [facility]): 12/08/21 - 01/07/22 [facility] [address] [place] [address] Drive, [address] [place] [address]- Allergies, Adverse Reactions, Alerts Substance Reaction Severity [...] toxoids (Td) 05/22/97 Given 1Result Comment: [11/05/2016] [facility] [place] [facility] 2Result Comment: [03/09/2016] [facility] 3Location History: [facility] 4Admin Note: per pt historical data rcvd here Medications amLODIPine 5 mg oral tablet 5 mg, 1, tablet, By Mouth, Daily, # 90 tablet, Refills 3, Tot. Refills 3, Maintenance, 10/30/21 11:26:00 EDT, Route to Pharm[facility], Partial fill upon patient request [...] tablet, 1 Refills, Maintenance, 11/08/21 19:06:00 EDT, [facility], 156, cm, 10/30/21 [...] Position: [facility] Primary Care Physician Member Role: PCP Address: Address: [address] [place] [address]- Name: Kelsy Cyr RN Position: S RN Member Role: Primary Care Nurse Name: Beena Mack [place] Position: [facility] Onco RN Member Role: Primary Care Nurse Care Team Related Persons Name: RACHEL MANCIA Address: home [address] [place] [id number]
--- OUTSIDE RECORDS SUMMARY | 2023-08-01 10:06 | XMS_ITS | Summary of Care ---
Author Organization [facility] Address [address] [place] [address]- Encounter 02/08/17 - 02/12/[address] [address]- Discharge Disposition: Discharged to Home or Self Care Attending Physician: Kai Brito MD Vital Signs Most recent to oldest [Reference Range]: 1 2 3 Temperature Oral F [96.4-99.1 DegF] 97.9 DegF (02/12/17 5:44 AM) 97.1 DegF (02/11/17 4:38 PM) 99.3 DegF *HI* (02/11/17 5:08 AM) Peripheral Pulse Rate [60-100 bpm] 67 bpm (02/12/17 5:44 AM) 72 bpm (02/11/17 4:38 PM) 65 bpm (02/11/17 5:08 AM) Respiratory Rate [14-20 br/min] 16 br/min (02/12/17 5:44 AM) 20 br/min (02/11/17 4:38 PM) 20 br/min (02/11/17 5:08 AM) Systolic Blood Pressure [90-140 mmHg] 118 mmHg (02/12/17 5:44 AM) 183 mmHg *HI* (02/11/17 4:38 PM) 161 mmHg *HI* (02/11/17 8:25 AM) Diastolic Blood Pressure [60-90 mmHg] 58 mmHg *LOW* (02/12/17 5:44 AM) 83 mmHg (02/11/17 4:38 PM) 75 mmHg (02/11/17 8:25 AM) Extremity used to obtain blood pressure Left Arm (02/08/17 7:26 PM) Temperature Oral [35.8-37.3 DegC] 36.6 DegC (02/12/17 5:44 AM) 36.2 DegC (02/11/17 4:38 PM) 37.4 DegC *HI* (02/11/17 5:08 AM) Allergies, Adverse Reactions, Alerts Substance Reaction Severity Status aspirin Active nabumetone Active NSAIDs Active Medications acetaminophen 325 mg oral tablet 650 mg = 2 tab, Tab, Oral, q4hr PRN, 0 Refill(s), PAIN (Scale 1-3) Start Date: 02/12/17 Status: Ordered Norvasc 5 mg oral tablet 5 mg = 1 tab, Tab, Oral, Daily, 0 Refill(s) Start Date: 02/12/17 Status: Ordered Results LABORATORY Most recent to oldest [Reference Range]: 1 2 Estimated Creatinine Clearance 42.60 mL/ min (02/12/17 5:45 AM) 42.60 mL/min (02/09/17 3:31 PM) Creatinine Level 0.64 mg/dL (02/09/17 3:31 PM)
--- OUTSIDE RECORDS SUMMARY | 2023-08-01 10:06 | XMS_ITS | Patient Health Record ---
Author Organization [facility] Address [address] [place] [address] Care Team Providers Care Lumber Mover Name Role Phone Bebo Garcia MD Primary Care Provider Galile[facility] [place] [phone] ALLERGIES Allergen (clinical drug ingredient) Drug/Non Drug Allergy documented on EMR Reaction Allergy Type Onset Date Status chlorhexidine Chlorhexidine Unknown Drug Allergy Active Substance with 8-ewjboqz-2-methylgl utaryl-coenzyme A reductase inhibitor mechanism of action (substance) Statins (uncoded) liver levels rise Allergy Active REASON FOR REFERRAL No Information MEDICATIONS Medication SIG (Take, Route, Frequency, Duration) Notes Start Date End Date Status Tylenol PRN Not-Taking LORazepam 0.5 MG as directed Orally FOR FLIGHTS PRN Active Zetia 10 MG 1 tablet Orally Once a day for 30 day(s) Active Lashawn Active Calcium + D3 600-200 MG-UNIT 1 tablet with a meal Orally Once a day for 30 day(s) Active valACYclovir HCl PRN Act ronal Cyclobenzaprine HCl 10 MG 1 tablet at be dtime as needed Orally Once a day for 30 day(s) PRN Active Multivitamin - 1 tablet Orally Once a day for 30 day(s) Active Aspirin Adult Low Dose 81 MG 1 tablet Orally Once a day for 30 day(s) Active amLODIPine Besylate 5 MG 1 tablet Orally Once a day Active IMMUNIZATIONS Vaccine Route Administration Date Status Comme nts Influenza Unknown 10/31/2019 Administered Influenza Unknown 10/22/2020 Administered SOCIAL HISTORY Tobacco Use: Social History Observation Description Date Details (start date - stop date) Never Smoker NA - NA Sex Assigned At : Social History Observation Description Sex Assigned At Unknown Tobacco Use/Smoking Question Answer Notes Patient is a nonsmoker Alcohol Screen Question Answer Notes Did you have a drink contain ing alcohol in the past year? Yes How often did you have a dri nk containing alcohol in the past year? 4 or more times a week (4 points) How many drinks did you have on a typical day when you were drinking in the past year? 1 or 2 drinks (0 point) How often did you have 6 or more drinks on one occasion in the past year? Never (0 point) Points 4 Interpretation Positive PROBLEMS Problem Type ICD Code Onset Dates Problem Status W/U Status Risk SNOMED Code Notes Problem Encounter for screening for malignant neoplasm of colon (Z12.11) Active confirmed Screening for malignant neoplasm of colon (169708008) Problem Preprocedural examination (Z01.818) Active confirmed Preprocedural examination (063840859619971 ) Problem Aspirin long-term use (Z79.82) Active confirmed Long-term current use of aspirin (057053155298546 ) Problem Diarrhea (R19.7) Active confirmed Diarr hea (99597497) Problem Change in bowel habits (R19.4) Active confirmed Change in bow el habit (90652592) PLAN OF TREATMENT Pending Test Test Name Order Date LIVER PROFILE 10/12/2021 CRP 10/12/2021 CBC w DIFF 10/12/2021 SED RATE (ESR) 10/12/2021 CELIAC PANEL #10 10/12/2021 CELIAC PANEL #10 10/29/2021 STOOL WBC 10/12/2021 C DIFFICILE RFLX PCR 10/12/2021 CALPROTECTIN, STOOL 10/12/2021 TSH reflex Free T4 10/12/2021 GI PANEL 10/12/2021 Future Test Test Name Order Date COLONOSCOPY 12/12/2019 Insurance Providers Payer Name Payer Address Payer Phone Subscriber Number Group Number Insured Name Patient Relationship to Insured Coverage Start Date Coverage End Date MEDICARE OF [place] [address] [place] [id number] KASSIE MANCIA Self - patient is the insured [employer] ATT[employer] CLAIMS [address] [place] [address] [id number] KASSIE MANCIA Self - patient is the insured MEDICAL (GENERAL) HISTORY Medical History History ICD Code Denies ME,DM,Lung disease,renal disease 2 Small strokes in 06/2018--no residual Hyperlipidemia Neg. screening colonoscopies in 1999, 2009, and in 01/2020 Lipitor-induced hepatitis HTN Surgical History Surgery Date(Month/Year) Bunionectomy - bilateral Lower back-herniated disk repair Left eye cataract and lens implant Meningioma surgery 09/07/2021
--- OUTSIDE RECORDS SUMMARY | 2023-08-01 10:06 | XMS_ITS | Continuity of Care Document ---
Author Organization [facility] Oli Karson lt Address [address] [place] [address]- Care Team Providers Care Rehabilitation Aide/Scheduler Name Role Phone Radha ACEVES, Bebo Reed Primary Care Physician [facility]s): 05/21/21 - 05/28/21 [facility] Oli Adult [address] [place] [address]- Encounter Diagnosis Short-term memory loss(Discharge Diagnosis) - 05/21/21 Attending Physician: Tessa Paige NP Referring Physician: Wilder ACEVES, Sha Salomon Allergies, Adverse Reactions, Alerts Substance Reaction Severity [...] 05/22/97 Given 1Result Comment: [11/05/2016] [facility] [place] [facility] 2Result Comment: [03/09/2016] [facility] 3Location History: [facility] 4Admin Note: per pt historical data rcvd here Medications Lashawn By Mouth, 0 Refills, Maintenance, 07/06/16 14:19:02 Start Date: 07/06/16 Status: Ordered amLODIPine 2.5 mg oral tablet See Instructions, TAKE THREE TABLETS BY MOUTH EVERY DAY, # 90 tablet, 11 Refills, Maintenance, 11/10/20 11:12:00 EDT, [facility], 157.2, cm, 10/29/20 10:40:00 [...] 10/19/19 12:44:00 EDT, Route to Pharmacy Electronically, [facility] # [facility], 157.2, cm, 04/20/19 9:37:00 [...] 3 Refills, Maintenance, 12/12/20 16:02:00 EDT, Tablet, [facility], Partial fill upon patient [...] 3 Active Rhinitis(Confirmed) Active Vitiligo(Confirmed) Active 1Colonoscopy 2020 -. 2colo 2009 nl, repeat 2019 3bone density 07/2010 osteopenia but no osteoporosis, pt. to d/c fosamax and recheck bone density 07/2012 Diagnosis Diagnosis Type Effective Dates Health Status Cl inical Service Informant Short-term memory loss Discharge Diagnosis 05/21/21 Vital Signs Most recent to oldest [Reference Range]: 1 Height 157.2 cm (05/21/21 10:05 AM) Weight 56.6 kg (05/21/21 10:05 AM) Oxygen Saturation [94-100 %] 97 % (05/21/21 10:05 AM) Pulse Rate [55-90 bpm] 77 bpm (05/21/21 10:05 AM) Body Mass Index [18.5-24.99] 22.9 (05/21/21 10:05 AM) Blood Pressure [90-138/55-84 mm Hg] 136/ 74mm Hg (05/21/21 10:05 AM) Respiratory Rate [16-30 br/min] 14 br/mi n *L* (05/21/21 10:05 AM) Temperature [96.8-100.4 DegF] 97.6 DegF (05/21/21 10:05 AM) Mode of Delivery (Oxygen) Room air (05/21/21 10:05 AM) Blood pressure sites Arm, left (05/21/21 10:05 AM) Temperature Route Oral (05/21/21 10:05 AM) Weight Obtained Via Standing scale (05/21/21 10:05 AM) Social History Social History Type Response Smoking Status Former smoker entered on: 01/17/13 Sex Female
--- OUTSIDE RECORDS SUMMARY | 2023-08-01 10:06 | XMS_ITS | Continuity of Care Document ---
Author Organization [facility] Oli Karson lt Address [address] [place] [address]- Care Team Providers Care Utility Hand Name Role Phone Bebo Garcia MD Primary Care Physician [facility](s): 12/11/20 - 01/10/21 [facility] Oli Adult [address] [place] [address]- Allergies, Adverse Reactions, Alerts Substance Reaction Severity [...] toxoids (Td) 05/22/97 Given 1Result Comment: [11/05/2016] [facility] [place] 2Result Comment: [03/09/2016] [facility] 3Location History: [facility] 4Admin Note: per pt historical data [...] EDT, Route to Pharmacy Electronically, [facility], 157.2, cm, 04/20/19 [...]
--- OUTSIDE RECORDS SUMMARY | 2023-08-01 10:06 | XMS_ITS | Continuity of Care Document ---
Author Organization [facility] Address [address] [place] [address] christa, [address] [place] [address]- Care Team Providers Care Financial Services Associate Name Role Phone Bebo Garcia MD Primary Care Physician [phone] [facility]counter [facility](s): 09/22/21 - 10/22/21 [facility] [address] [place] [address], [address] [place], [place] [address] Attending Physician: Yari Rivera Admitting Physician: AdmYari [...] Refills, Maintenance, 12/12/20 16:02:00 EDT, Tablet, [facility], Partial fill upon patient request [...] Personnel Name: Radha ACEVES, Bebo Reed Address: [address] [place] [address]-
--- OUTSIDE RECORDS SUMMARY | 2023-08-01 10:06 | XMS_ITS | Continuity of Care Document ---
Author Organization [facility] Chris Baird Karson lt Address [address] [place] [address]- Care Team Providers Care Junior Loan Processor Name Role Phone Bebo Garcia MD Primary Care Physician [phone] [facility](s): 07/01/21 - 07/31/21 [facility] Chris Baird Adult [address] [place] [address]- Allergies, Adverse Reactions, Alerts Substance Reaction Severity [...] [facility] [place] [facility] 2Result Comment: [03/09/2016] [facility] 4Admin Note: per pt historical data rcvd here Medications Lashawn By Mouth, 0 Refills, Maintenance, 07/06/16 14:19:02 Start Date: 07/06/16 Status: Ordered amLODIPine 2.5 mg oral tablet See Instructions, TAKE THREE TABLETS BY MOUTH EVERY DAY, # 90 tablet, 11 Refills, Maintenance, 11/10/20 11:12:00 EDT, [facility], 157.2, cm, 10/29/20 10:40:00 EDT, Height, [...] 10/19/19 12:44:00 EDT, Route to Pharmacy Electronically, [facility] # [facility], 157.2, cm, 04/20/19 9:37:00 [...] 12/12/20 16:02:00 EDT, Tablet, [facility], Partial fill upon patient request if [...]
[2023-08-01] MEDS: Phenylephrine HCL 2.5% Oph SoL 2 ML BOTTLE 1 DROP EYE-RIGHT ×3 (11:04→11:18)
[2023-08-01] MEDS: Lactated Ringers 500 ML 50 ML IV (11:04)
[2023-08-01] MEDS: Tropicamide 1 % Ophth Sol 3 ML BTL 1 DROP EYE-RIGHT ×3 (11:05→11:18)
[2023-08-01] MEDS: Ketorolac Tromethamine 0.5% Op 10 ML DROPS 1 DROP EYE-RIGHT ×3 (11:05→11:18)
[2023-08-01] MEDS: Cyclopentolate 1 % Ophth Sol 2 ML DRPBTL 1 DROP EYE-RIGHT ×3 (11:05→11:19)
[2023-08-01] MEDS: Tetracaine HCl/PF 0.5% Oph Sol 4 ML DROPS 1 DROP EYE-RIGHT (11:06)
[2023-08-01 11:20] VITALS: BP 156/69; PULSE 63; RESP 18; TEMP 36.6; O2SAT 97
--- NOTE | 2023-08-01 12:10 | P.PCNO_ITS ---
Ophthalmology Procedure Procedure Date of Service: 08/01/23 Ophthalmology Viscoelastic: Healon Duet Dual Pack Pro Ophthalmology Lenses: IOL Acrysof MP - [id number] (21.5) Procedure Notes: PREOPERATIVE DIAGNOSIS: Decreased visual acuity right eye secondary to cataract POSTOPERATIVE DIAGNOSIS: Same PROCEDURE: Right cataract extraction with intraocular lens insertion SURGEON: Mark Fu M.D. ANESTHESIA: Topical/MAC ESTIMATED BLOOD LOSS: None COMPLICATIONS: None After obtaining informed consent, the patient was brought to the operating room suite and placed in the supine position. After adequate sedation per anesthesia, topical drops of Tetracaine were given to the right eye. The eye was then prepped and draped in the usual sterile fashion. The operating room microscope was then positioned over the operative eye and a lid speculum placed. A paracentesis was created. Viscoelastic was then instilled into the anterior chamber. A three plane incision was then created temporally, utilizing a 2.85 mm keratome. Capsulotomy forceps were then utilized to create a circular tear capsulotomy. Hydrodissection and hydrodelineation were carried out until adequate mobilization of the nucleus occurred. Phacoemulsification was then utilized to remove the dense central nu cleus followed by removal of the cortical material utilizing the automated aspiration irrigation unit. Viscoelastic was instilled into the posterior capsular bag followed by placement of a posterior chamber intraocular lens without difficulty. The residual Viscoelastic was then removed utilizing the automated IA machine. The wound was checked and found to be watertight. The patient tolerated the procedure well and the lid speculum was removed. Intracameral injection of Vigamox 0.1 mL followed by a subtenon injection of Kenalog-40 0.2 mL were administered. The patient will be seen in the a.m.
--- NOTE | 2023-08-01 12:10 | MHC.SHP ---
Pre-Procedural Eval Section A - 24 Hr Update-Section A only Date of Service: 08/01/23 The patient is an INPATIENT: No Changes since office visit: No Cold of Flu in the past 2 weeks, No New Medical Problems, No Changes in Medication and No Patient answered all questions The patient has been examined within 24 hours of the surgical procedure. The History & Physical has been completed within 30 days and I have reviewed it.: Yes Section B - Complete if H&P > 30 days Chief Complaint: Age-related nuclear cataract, right eye Allergies: Allergies Allergy/AdvReac Type Severity Reaction Status Date / Time atorvastatin [From Lipitor] Allergy Severe elevated Verified 08/01/23 11:24 liver enzymes Qxqskpd-BNP-WfP Reductase Allergy Severe Stomach Verified 08/01/23 11:24 Inhibitor Upset aspirin [ASA] AdvReac Intermediate GI UPSET Verified 08/01/23 11:24 nabumetone [NABUMETONE] AdvReac Intermediate GI UPSET Verified 08/01/23 11:24 ENVIROMENTAL Allergy Intermediate HAYFEVER Uncoded 08/01/23 11:24 Plan Diagnosis/Plan: Unchanged I have reviewed the history and physical and performed a pertinent physical examination on my patient. No changes have occurred unless specified. Time Spent With Patient Time: Total time managing care of this patient today ____ minutes.
[2023-08-01 12:41] VITALS: BP 123/61; PULSE 60; RESP 16; TEMP 36.1; O2SAT 97
== END 2023-08-01 12:50 | disposition home or self-care (01) ==
PROVIDERS: PCP Internal Medicine; Visit Provider Ophthalmology
PROC: (CPT 66985; principal; 2023-08-01 12:10)
DX: H25.11 Age-related nuclear cataract, right eye (principal); I10 Essential (primary) hypertension; Z86.73 Personal history of transient ischemic attack (TIA), and cerebral infarction without residual deficits; Z88.8 Allergy status to other drugs, medicaments and biological substances
CPT/HCPCS: 66984; J2250; J3301; V2630

== ENCOUNTER 2023-12-07 08:05 | Outpatient (REF) | payer MEDICARE, SELFPAY ==
[2023-12-07 09:11] LABS: Leukocytes Stool Qualitative NEGATIVE (NEGATIVE)
[2023-12-07 11:33] LABS: CDiff Gene PCR NEGATIVE (Negative)
[2023-12-07 12:54] LABS: Adenovirus F 40/41 Not Detected (Not Detect.); Astrovirus Not Detected (Not Detect.); Campylobacter Not Detected (Not Detect.); Cryptosporidium Not Detected (Not Detect.); Cyclospora cayetanensis Not Detected (Not Detect.); E. coli EAEC Not Detected (Not Detect.); E. coli EPEC Not Detected (Not Detect.); E. coli ETEC Not Detected (Not Detect.); E. coli STEC Not Detected (Not Detect.); Entamoeba histolytica Not Detected (Not Detect.); Giardia lamblia Not Detected (Not Detect.); Norovirus GI/GII Not Detected (Not Detect.); Plesiomonas shigelloides Not Detected (Not Detect.); Rotavirus A Not Detected (Not Detect.); Salmonella Not Detected (Not Detect.); Sapovirus Not Detected (Not Detect.); Shigella sp./EIEC Not Detected (Not Detect.); Vibrio Not Detected (Not Detect.); Vibrio Cholerae Not Detected (Not Detect.); Yersinia enterocolitica Not Detected (Not Detect.)
[2023-12-14 19:23] LABS: Calprotectin, Fecal 251 mcg/g
== END 2023-12-07 08:06 | disposition home or self-care (01) ==
LOC: HO.LNP 08:05
PROVIDERS: Visit Provider Internal Medicine
DX: R19.7 Diarrhea, unspecified (principal)
CPT/HCPCS: 83993; 87493; 87507; 89055